=== PATIENT | male | born 1935 | race Caucasian/White ===

== ENCOUNTER → 2016-12-07 | Outpatient (CLI) | payer OTHER, MEDICARE ==
[2016-11-23 14:21] VITALS: BP 111/76
--- NOTE | 2016-12-07 14:46 | CT ---
HISTORY: Fall, hit back of head Study: CT brain without contrast Comparison: 06/12/2015 Technique: Multiple axial images of the brain were obtained from the skull base to the vertex without administr ation of IV contrast. Dose reduction techniques including Automated Exposure Control (AEC) and adju stment of mA and kV were utilized. Findings: There is chronic generalized cerebral volume loss. There are prominent subcortical and periventricul ar white matter hypodensities scattered throughout the bilateral hemispheres suggestive of advanced microvascular ischemic changes. No evidence of acute hemorrhage, midline shift, mass effect or abno rmal extra-axial fluid collection. Prominence of the cortical sulci and ventricles commensurate wit h volume loss. The soft tissues and osseous structures are unremarkable. There is right maxillary s inus mucosal thickening and fluid. The remaining paranasal sinuses are essentially clear. IMPRESSION: 1. Chronic advanced microvascular ischemic changes without acute intracranial abnormality. 2. Right maxillary sinus disease. Reported By:
== END | disposition home or self-care (01) ==
LOC: RAD 13:38
PROVIDERS: ATTEND Internal Medicine
DX: Z91.81 History of falling (principal); J34.89 Other specified disorders of nose and nasal sinuses
CPT/HCPCS: 70450

== ENCOUNTER 2016-12-17 21:56 | Inpatient (IN) | payer OTHER, MEDICARE ==
--- NOTE | 2016-12-17 22:57 | DR.GENAD ---
HPI - PCP Primary Care Physician: ADRIANE - Complaint/Symptoms Chief Complaint Doctors Comments: Patient presented from half-way with complaint of altered mental status. His medication for dementia was changed and since then has had AMS. He catheter was changed and urine was positive for UTI. He had been treated with macrobid for uti. He is afebrile. Chief Complaint:: AMS, BAD URINE Self Treatment fo Chief Complaint: STARTED MACROBID TODAY - Source History Provided: [facility] - Mode of Arrival Mode of Arrival: Stretcher - Timing Onset of Chief Complaint: 12/16/16 PMH - PMH Past Medical History: Yes Past Medical History: Anxiety, Coronary Artery Disease, Dementia, Depression, Hypertension Past Medical History Comment: A-FIB,PROSTATE NEOPLASM, FAILURE TO THRIVE, DYSPHAGIA,UTI, ANOREXIA Past Surgical History: Yes Surgical History: Ortho Surgery Past Surgical History Comment: FOOT AND BACK, SPINAL TUMOR REMOVED - Family History History of Family Medical Conditions: Yes Family Medical History: Hypertension - Social History Does patient currently use any type of tobacco product: No Have you used tobacco products in the last 12 months: No Type of Tobacco Use: None Does any household member use tobacco: No Alcohol Use: None Do you use any recreational Drugs:: No Lives With: Other Lives Where: [facility] - infectious screening Have you had fever, night sweats or hemotysis?: No Have you traveled outside the country in the last 6 months?: No Isolation: Standard ROS - Review of Systems Constitutional: No Symptoms Reported. negative: Chills, Diaphoresis Eyes: No Symptoms Reported ENTM: No Symptoms Reported Respiratoy: No Symptoms Reported Cardiovascular: No Symptoms Reported, Chest Pain Gastrointestinal/Abdominal: No Symptoms Reported. negative: Abdominal Pain Genitourinary: Other (uti) Neurological: See HPI, Speech Problem Musculoskeletal: No Symptoms Reported Integumentary: No Symptoms Reported Hematologic/Lymphatic: No Symptoms Reported Endocrine: No Symptoms Reported Psychiatric: No Symptoms Reported Unable to Obtain Due To: Altered mental status PE - Vital Signs Vitals: Temperature 98.9 F Pulse Rate 71 Respiratory Rate 18 Blood Pressure [Right Arm] 133/82 Blood Pressure [Left Arm] 111/76 Blood Pressure 100/75 O2 Sat by Pulse Oximetry 97 - General Limitations: No Limitations General Appearance: Obtunded - Head Head Exam: Normal Inspection, Atraumatic - Eyes Eye exam: Normal Appearance, EOMI - ENT ENT Exam: Mucous Membranes Dry External Ear Exam: Normal External Inspection TM/Canal Exam: Bilateral Normal Nose Exam: Normal Nose Exam Mouth Exam: Other (dry) Throat Exam: Normal Inspection - Neck Neck Exam: Normal Inspection, Full ROM - Chest Chest Inspection: Normal Inspection - Respiratory Respiratory Exam: Normal Lung Sounds Bilat Respiratory Exam: Bilateral Clear to Auscultation - Cardiovascular Cardiovascular Exam: Regular Rate, Normal Rhythm - Abdominal Exam Abdominal Exam: Normal Inspection Abdominal Tenderness: negative: RUQ, RLQ, LUQ, LLQ, Epigastrium, Suprapubic, Diffuse, Mild, Moderate, Severe, Other - Extremities Extremities Exam: Normal Inspection - Back Back Exam: Normal Inspection - Neurologic Neurological Exam: Other (AMS) - Psychiatric Psychiatric Exam: Depressed, Flat Affect - Skin Skin Exam: Warm, Dry, Intact Course - Reevaluation 1st: Unchanged ROR - Labs Reviewed Laboratory Results Reviewed?: Yes (Labs done at 1800: UrineTNTC wbc, 3+Leuk,4+ bld) - Diagnosis Discharge Problem: UTI (urinary tract infection) due to urinary indwelling Riojas catheter Qualifiers: Indwelling urinary catheter type: indwelling urethral catheter Encounter type: initial encounter Qualified Code(s): T83.511A - Infection and inflammatory reaction due to indwelling urethral catheter, initial encounter; N39.0 - Urinary tract infection, site not specified - Discharge Plan Condition: Stable - Follow ups/Referrals Follow ups/Referrals: Shayne Reyes [Primary Care Provider] - 3 days - Instructions
[2016-12-17] MEDS ORDERED: GENTAMICIN INJ 80 MG in NS 100 ML IV 100 ML IV ONE (23:20)
[2016-12-17] MEDS ORDERED: TYLENOL 500 MG TAB EXTRA STRENGTH PO PRN (23:20)
[2016-12-17] MEDS: LR 1000 ML IV 1,000 ML IV SCH (23:51)
[2016-12-18 01:57] VITALS: BMI 18.6
[2016-12-18] MEDS ORDERED: NS 50 ML IV 50 ML IV ONE (02:59)
[2016-12-18] MEDS ORDERED: AMPICILLIN VIAL 1 GM ONE (03:00)
[2016-12-18] MEDS: AMPICILLIN VIAL 1 GM 1 GM in NS 50 ML IV + SPIKE MINIBAG* 50 ML IV SCH ×2 (03:04→09:16)
[2016-12-18 06:36] LABS: ALANINE AMINOTRANSFERASE 27 Units/L (12-78); ALBUMIN 2.3 g/dL (3.4-5.0); ALKALINE PHOSPHATASE 78 Units/L (46-116); ASPARTATE AMINO TRANSFERASE 28 Units/L (15-37); BASOPHILS # (AUTO) 0.1 X10^3/uL (0.0-0.1); BASOPHILS % (AUTO) 0.4 % (0.2-1.0); BLOOD UREA NITROGEN 18 mg/dL (7-18); CALCIUM 8.5 mg/dL (8.5-10.1); CARBON DIOXIDE 22.5 mmol/L (21-32); CHLORIDE 107 mmol/L (98-107); COR CA(FOR HYPOALB) 9.9 mg/dL (8.5-10.1); EOSINOPHILS # (AUTO) 0.4 x10^3/uL (0.0-0.2); EOSINOPHILS % (AUTO) 3.1 % (0.9-2.9); GLUCOSE 97 mg/dL (65-99); HEMATOCRIT 33.2 % (42.0-54.0); HEMOGLOBIN 10.9 g/dL (13.5-18.0); LYMPHOCYTES # (AUTO) 2.3 X10^3/uL (1.3-2.9); LYMPHOCYTES % (AUTO) 15.7 % (21.0-51.0); MEAN CORPUSCULAR HEMOGLOBIN 28.9 pg (27.0-34.0); MEAN CORPUSCULAR VOLUME 87.6 fL (80.0-100.0); MEAN PLATELET VOLUME 9.3 fL (7.4-11.0); MONOCYTES # (AUTO) 0.9 x10^3/uL (0.3-0.8); MONOCYTES % (AUTO) 6.1 % (0.0-13.0); NEUTROPHILS # (AUTO) 10.9 x10^3/uL (2.2-4.8); NEUTROPHILS % (AUTO) 74.7 % (42.0-75.0); PLATELET COUNT 201 X10^3/uL (150.0-450.0); RED BLOOD COUNT 3.79 X10^6/uL (4.7-6.0); RED CELL DISTRIBUTION WIDTH 13.3 % (11.6-16.5); SODIUM 140 mmol/L (136-145); TOTAL PROTEIN 6.9 g/dL (6.4-8.2); WHITE BLOOD COUNT 14.6 X10^3/uL (3.6-10.0); eGFR BLACK RACES > 60 (>60); eGFR NON BLACK RACES > 60 (>60)
[2016-12-18] MEDS: LR 1000 ML IV 1,000 ML IV SCH ×4 (09:16→23:52)
[2016-12-18] MEDS ORDERED: PHARMACY CONSULT - DOSE _____ XX SCH (10:00)
[2016-12-18] MEDS: ROCEPHIN VIAL 1 GM 1 GM in NS 50 ML IV + SPIKE MINIBAG* 50 ML IV SCH (10:02)
[2016-12-18] MEDS: ZOSYN VIAL 3.375 GM 3.375 GM in NS 100 ML IV + SPIKE MINIBAG* 100 ML IV SCH ×2 (13:59→22:32)
--- NOTE | 2016-12-18 18:29 | CT ---
HISTORY: Patient found sitting in floor unable to verbalize Study: CT brain without contrast Comparison: December 09, 2016 Technique: Multiple axial images of the brain were obtained from the skull base to the vertex without administr ation of IV contrast. Findings: No acute intraparenchymal hemorrhage or mass can be identified. No extra-axial fluid collections ar e seen. No alteration in the attenuation of the brain parenchyma can be identified to suggest acute or subacute ischemic change. The ventricles, sulci, and cisterns demonstrate an appearance consist ent with a moderate degree of generalized atrophy. Patchy and confluent areas of decreased attenuati on are again seen within the periventricular, subcortical, and subinsular white matter in keeping wi th changes of chronic small vessel ischemic disease. There is a questionable remote infarct again no adrianna within the right occipital lobe. Images demonstrate moderate mucosal thickening with an associat ed air-fluid level involving the right maxillary sinus. Similar findings were noted on prior study. IMPRESSION: 1. No acute intracranial process can be identified. 2. Moderate generalized atrophy with findings consistent with changes small vessel ischemic disease. 3. Right maxillary sinus disease. Reported By:
--- NOTE | 2016-12-18 18:33 | RAD ---
HISTORY: Patient found sitting in for unable to verbalize Study: Bilateral hips Technique: Three views of the hips and pelvis Comparison: None Findings: Portions of the pelvis included pubic symphysis cysts are obscured by overlying bowel content. Other mark no definite evidence of acute displaced fracture or dislocation identified. Each femoral head appears to be well seated within its respective acetabulum. Degenerative changes of the sacroil iac joints, lumbar spine, both hips, and pubic symphysis are noted. If symptoms or clinical concern persist correlation with CT may be helpful. Impression: 1. Degenerative changes as noted above. Reported By:
[2016-12-18] MEDS: MEGACE PO SCH (21:00)
[2016-12-18] MEDS: MACROBID CAP 100 MG EXT REL PO SCH (21:01)
[2016-12-18] MEDS: KLONOPIN TAB 0.5 MG PO SCH (21:01)
[2016-12-18] MEDS: FLOMAX PO SCH (21:01)
[2016-12-18] MEDS: ZYPREXA 5 MG PO SCH (21:01)
[2016-12-18] MEDS: DESYREL PO SCH (21:01)
[2016-12-18] MEDS: PROZAC PO SCH (21:05)
[2016-12-19] MEDS: LR 1000 ML IV 1,000 ML IV SCH ×3 (01:50→14:54)
[2016-12-19 02:02] LABS: BILIRUBIN,URINE NEGATIVE (NEGATIVE); BLOOD/HEMOGLOBIN,URINE 5+ (NEGATIVE); GLUCOSE, URINE NEGATIVE (NEGATIVE); KETONES,URINE NEGATIVE (NEGATIVE); LEUKOCYTE ESTERASE ,URINE 2+ (NEGATIVE); NITRITES,URINE NEGATIVE (NEGATIVE); PROTEIN,URINE 1+ (NEGATIVE); UROBILINOGEN,URINE NORMAL (NORMAL)
[2016-12-19 02:13] LABS: APPEARANCE,URINE HAZY (CLEAR); BACTERIA,URINE TRACE /HPF (NEGATIVE); COLOR,URINE YELLOW (YELLOW); RBC,URINE 40-50 /HPF (NEGATIVE); SQUAMOUS EPITHELIAL CELL,UR RARE /HPF (NEGATIVE)
[2016-12-19] MEDS: ZOSYN VIAL 3.375 GM 3.375 GM in NS 100 ML IV + SPIKE MINIBAG* 100 ML IV SCH ×3 (05:35→21:38)
[2016-12-19] MEDS: PROZAC PO SCH (08:00)
[2016-12-19] MEDS: ROCEPHIN VIAL 1 GM 1 GM in NS 50 ML IV + SPIKE MINIBAG* 50 ML IV SCH (08:57)
[2016-12-19] MEDS: ZYPREXA 5 MG PO SCH ×2 (08:59→21:39)
[2016-12-19] MEDS: KLONOPIN TAB 0.5 MG PO SCH (08:59)
[2016-12-19] MEDS: MACROBID CAP 100 MG EXT REL PO SCH ×2 (08:59→21:39)
[2016-12-19] MEDS: ASPIRIN EC 81 MG PO SCH (08:59)
[2016-12-19] MEDS: MEGACE PO SCH ×2 (09:01→21:39)
[2016-12-19 10:24] LABS: BASOPHILS # (AUTO) 0.1 X10^3/uL (0.0-0.1); EOSINOPHILS # (AUTO) 0.5 x10^3/uL (0.0-0.2); EOSINOPHILS % (AUTO) 4.9 % (0.9-2.9); HEMATOCRIT 32.3 % (42.0-54.0); HEMOGLOBIN 10.8 g/dL (13.5-18.0); LYMPHOCYTES # (AUTO) 1.8 X10^3/uL (1.3-2.9); LYMPHOCYTES % (AUTO) 17.4 % (21.0-51.0); MEAN CORPUSCULAR HGB CONC 33.4 g/dL (33.0-35.0); MEAN CORPUSCULAR VOLUME 86.8 fL (80.0-100.0); MEAN PLATELET VOLUME 8.1 fL (7.4-11.0); MONOCYTES # (AUTO) 0.9 x10^3/uL (0.3-0.8); MONOCYTES % (AUTO) 8.8 % (0.0-13.0); NEUTROPHILS # (AUTO) 7.1 x10^3/uL (2.2-4.8); NEUTROPHILS % (AUTO) 67.9 % (42.0-75.0); PLATELET COUNT 223 X10^3/uL (150.0-450.0); RED BLOOD COUNT 3.73 X10^6/uL (4.7-6.0); RED CELL DISTRIBUTION WIDTH 13.5 % (11.6-16.5); WHITE BLOOD COUNT 10.4 X10^3/uL (3.6-10.0)
[2016-12-19 10:47] LABS: ALANINE AMINOTRANSFERASE 28 Units/L (12-78); ALBUMIN 2.3 g/dL (3.4-5.0); ALKALINE PHOSPHATASE 74 Units/L (46-116); ASPARTATE AMINO TRANSFERASE 22 Units/L (15-37); BLOOD UREA NITROGEN 10 mg/dL (7-18); CALCIUM 8.6 mg/dL (8.5-10.1); CHLORIDE 109 mmol/L (98-107); CREATININE 0.97 mg/dL (0.70-1.30); GLUCOSE 107 mg/dL (65-99); SODIUM 141 mmol/L (136-145); TOTAL PROTEIN 6.9 g/dL (6.4-8.2); eGFR BLACK RACES > 60 (>60); eGFR NON BLACK RACES > 60 (>60)
[2016-12-19] MEDS: ALBUMIN HUMAN 25%- 100ML 100 ML IV SCH (14:51)
[2016-12-19] MEDS: FLOMAX PO SCH (21:38)
[2016-12-19] MEDS: DESYREL PO SCH (21:39)
[2016-12-19] MEDS: MILK OF MAGNESIA PO PRN (21:42)
[2016-12-20] MEDS: LR 1000 ML IV 1,000 ML IV SCH ×5 (00:17→22:58)
[2016-12-20 05:06] LABS: BASOPHILS # (AUTO) 0.1 X10^3/uL (0.0-0.1); BASOPHILS % (AUTO) 0.7 % (0.2-1.0); EOSINOPHILS # (AUTO) 0.4 x10^3/uL (0.0-0.2); EOSINOPHILS % (AUTO) 3.5 % (0.9-2.9); HEMATOCRIT 32.6 % (42.0-54.0); HEMOGLOBIN 10.8 g/dL (13.5-18.0); LYMPHOCYTES # (AUTO) 1.9 X10^3/uL (1.3-2.9); LYMPHOCYTES % (AUTO) 15.9 % (21.0-51.0); MEAN CORPUSCULAR HEMOGLOBIN 28.7 pg (27.0-34.0); MEAN CORPUSCULAR VOLUME 87.1 fL (80.0-100.0); MEAN PLATELET VOLUME 8.7 fL (7.4-11.0); MONOCYTES # (AUTO) 0.9 x10^3/uL (0.3-0.8); MONOCYTES % (AUTO) 7.6 % (0.0-13.0); NEUTROPHILS # (AUTO) 8.4 x10^3/uL (2.2-4.8); NEUTROPHILS % (AUTO) 72.3 % (42.0-75.0); PLATELET COUNT 215 X10^3/uL (150.0-450.0); RED BLOOD COUNT 3.74 X10^6/uL (4.7-6.0); RED CELL DISTRIBUTION WIDTH 13.3 % (11.6-16.5); WHITE BLOOD COUNT 11.7 X10^3/uL (3.6-10.0)
[2016-12-20 05:16] LABS: ALANINE AMINOTRANSFERASE 25 Units/L (12-78); ALBUMIN 2.8 g/dL (3.4-5.0); ALKALINE PHOSPHATASE 71 Units/L (46-116); ASPARTATE AMINO TRANSFERASE 21 Units/L (15-37); BLOOD UREA NITROGEN 9 mg/dL (7-18); CALCIUM 8.7 mg/dL (8.5-10.1); CARBON DIOXIDE 24.2 mmol/L (21-32); CHLORIDE 106 mmol/L (98-107); COR CA(FOR HYPOALB) 9.7 mg/dL (8.5-10.1); CREATININE 0.78 mg/dL (0.70-1.30); GLUCOSE 89 mg/dL (65-99); SODIUM 140 mmol/L (136-145); TOTAL PROTEIN 7.2 g/dL (6.4-8.2); eGFR BLACK RACES > 60 (>60); eGFR NON BLACK RACES > 60 (>60)
[2016-12-20] MEDS: ZOSYN VIAL 3.375 GM 3.375 GM in NS 100 ML IV + SPIKE MINIBAG* 100 ML IV SCH ×3 (05:52→22:00)
--- NOTE | 2016-12-20 08:28 | RAD ---
HISTORY: Cough, UTI Study: Chest one view Comparison: December 09, 2016 Findings: The patient is rotated to the left. The heart is within normal limits in size. The mone are normal. The lungs are free of acute alveolar infiltrates. No pleural effusions are identified. The bony thor ax is unremarkable. IMPRESSION: Lungs clear Reported By:
[2016-12-20] MEDS: ALBUMIN HUMAN 25%- 100ML 100 ML IV SCH (09:21)
[2016-12-20] MEDS: ROCEPHIN VIAL 1 GM 1 GM in NS 50 ML IV + SPIKE MINIBAG* 50 ML IV SCH (09:22)
[2016-12-20] MEDS: KLONOPIN TAB 0.5 MG PO SCH (09:23)
[2016-12-20] MEDS: ZYPREXA 5 MG PO SCH ×2 (09:27→20:40)
[2016-12-20] MEDS: MEGACE PO SCH ×2 (09:27→20:40)
[2016-12-20] MEDS: PROZAC PO SCH (09:27)
[2016-12-20] MEDS: MACROBID CAP 100 MG EXT REL PO SCH (09:28)
[2016-12-20] MEDS: ASPIRIN EC 81 MG PO SCH (09:28)
[2016-12-20] MEDS: GENTAMICIN TOPICAL CRM TOP SCH ×2 (14:06→22:00)
[2016-12-20] MEDS: VIBRAMYCIN 100 MG in D5W 250 ML IV 250 ML IV SCH ×2 (15:00→22:00)
--- NOTE | 2016-12-20 16:29 | PCM.PROG ---
Progress Note - Progress Note for Day of Date: 12/18/16 - Subjective Subjective: PATIENT IS ADMITTED FOR UTI WITH POSSIBLE UROSEPSIS. WHITE BLOOD CELL COUNT IS ELEVATED THIS MORNING AT 14.6. PATIENT IS NOTED WITH SOME CONFUSION THIS MORNING. URINE IS CONCENTRATED, CLOUDY. CBC WNL EXCEPT: WBC 14.6, H/H 10.9/33.2. CMP WNL EXCEPT: ALBUMIN 2.3. PATIENT HAS A WOUND ON HIS PENIS THAT WE WILL CULTURE TODAY FOR FURTHER TREATMENT. WE WILL OBTAIN BLOOD CULTURES. WE WILL CONTINUE ROCEPHIN AND ZOSYN, ALONG WITH IV FLUIDS. - Past Medical Family Social History Past Med/Fam/Surg Hx: No changes since H&P Allergies: Allergies Iodine Allergy (Intermediate, Verified 11/18/16 13:41) - Review of Systems ROS: No change since H&P - Vital Signs and I&O's Vital Signs: Temperature 98.1 F Pulse Rate [Right Posterior 93 Tibial] Pulse Rate [Right Radial] 128 Respiratory Rate 16 Blood Pressure [Left Calf] 142/82 Blood Pressure [Right Calf] 167/86 O2 Sat by Pulse Oximetry 97 Intake and Output: Intake & Output 12/18/16 12/19/16 12/20/16 12/21/16 11:59 11:59 11:59 11:59 Intake Total 3932 1300 Output Total 6475 2900 Balance -2543 -1600 - Physical Exam Oriented: Not Oriented Eyes: Normal. negative: Blurred Vision, Diplopia, Discharge, Pain, Redness, Photophobia Ear: Normal. negative: Swelling, Ecchymosis, Hemotypanum, Abrasion, Laceration Nose: Normal. negative: Injected, Discharge, Blood Throat: Dry. negative: Tonsillar Hypertrophy, Red, Exudate Respiratory: Normal Cardiovascular: Normal. negative: Murmur, Edema : Dysuria, Hematuria, Frequency, Discharge, Other (Riojas Cath). negative: Testicular Pain Auscultation: Bowel Sounds: Decreased. negative: Bruit Palpation: Normal. negative: Spleen Enlarged, Liver Enlarged, Mass Pulsatile Tenderness: Normal. negative: Rebound, Guarding, Rigidity Skin: Normal. negative: Diaphoresis, Wound, Bruising, Ecchymosis Musculoskeletal: Instability Psychiatric: Other (Confusion) Mood Description: Calm Speech Pattern: Clear, Inappropriate - Laboratory and Diagnostics Result Diagrams: 12/20/16 03:55 12/20/16 03:55 Labs: Laboratory WBC 11.7 X10^3/uL (3.6-10.0) H 12/20/16 03:55 RBC 3.74 X10^6/uL (4.7-6.0) L 12/20/16 03:55 Hgb 10.8 g/dL (13.5-18.0) L 12/20/16 03:55 Hct 32.6 % (42.0-54.0) L 12/20/16 03:55 MCV 87.1 fL (80.0-100.0) 12/20/16 03:55 MCH 28.7 pg (27.0-34.0) 12/20/16 03:55 MCHC 33.0 g/dL (33.0-35.0) 12/20/16 03:55 RDW 13.3 % (11.6-16.5) 12/20/16 03:55 Plt Count 215 X10^3/uL (150.0-450.0) 12/20/16 03:55 MPV 8.7 fL (7.4-11.0) 12/20/16 03:55 Neut % 72.3 % (42.0-75.0) 12/20/16 03:55 Lymph % 15.9 % (21.0-51.0) L 12/20/16 03:55 [place] % 7.6 % (0.0-13.0) 12/20/16 03:55 Eos % 3.5 % (0.9-2.9) H 12/20/16 03:55 Baso % 0.7 % (0.2-1.0) 12/20/16 03:55 Neut # 8.4 x10^3/uL (2.2-4.8) H 12/20/16 03:55 Lymph # 1.9 X10^3/uL (1.3-2.9) 12/20/16 03:55 [place] # 0.9 x10^3/uL (0.3-0.8) H 12/20/16 03:55 Eos # 0.4 x10^3/uL (0.0-0.2) H 12/20/16 03:55 Baso # 0.1 X10^3/uL (0.0-0.1) 12/20/16 03:55 Absolute Nucleated RBC 0.0 /100WBC 12/20/16 03:55 Sodium 140 mmol/L (136-145) 12/20/16 03:55 Corrected Sodium TNP 12/20/16 03:55 Potassium 4.1 mmol/L (3.5-5.1) 12/20/16 03:55 Chloride 106 mmol/L (98-107) 12/20/16 03:55 Carbon Dioxide 24.2 mmol/L (21-32) 12/20/16 03:55 BUN 9 mg/dL (7-18) 12/20/16 03:55 Creatinine 0.78 mg/dL (0.70-1.30) 12/20/16 03:55 Est GFR (MDRD) Af Amer > 60 (>60) 12/20/16 03:55 Est GFR (MDRD) Non-Af > 60 (>60) 12/20/16 03:55 Glucose 89 mg/dL (65-99) 12/20/16 03:55 Lactic Acid 1.0 mmol/L (0.4-2.0) 12/17/16 23:20 Calcium 8.7 mg/dL (8.5-10.1) 12/20/16 03:55 Corrected Calcium 9.7 mg/dL (8.5-10.1) 12/20/16 03:55 Total Bilirubin 0.80 mg/dL (0.2-1.0) 12/20/16 03:55 AST 21 Units/L (15-37) 12/20/16 03:55 ALT 25 Units/L (12-78) 12/20/16 03:55 Alkaline Phosphatase 71 Units/L (46-116) 12/20/16 03:55 Total Protein 7.2 g/dL (6.4-8.2) 12/20/16 03:55 Albumin 2.8 g/dL (3.4-5.0) L 12/20/16 03:55 Globulin 4.4 g/dL (2.5-4.5) 12/20/16 03:55 Albumin/Globulin Ratio 0.6 Ratio (1.1-2.1) L 12/20/16 03:55 Specimen Type Catherized urine 12/19/16 01:00 Urine Color Yellow (YELLOW) 12/19/16 01:00 Urine Appearance Hazy (CLEAR) 12/19/16 01:00 Urine pH 8.0 (5.0 - 8.0) 12/19/16 01:00 Ur Specific [place] 1.010 (1.000-1.030) 12/19/16 01:00 Urine Protein 1+ (NEGATIVE) 12/19/16 01:00 Urine Glucose (UA) Negative (NEGATIVE) 12/19/16 01:00 Urine Ketones Negative (NEGATIVE) 12/19/16 01:00 Urine Occult Blood 5+ (NEGATIVE) 12/19/16 01:00 Urine Nitrite Negative (NEGATIVE) 12/19/16 01:00 Urine Bilirubin Negative (NEGATIVE) 12/19/16 01:00 Urine Urobilinogen Normal (NORMAL) 12/19/16 01:00 Ur Leukocyte Esterase 2+ (NEGATIVE) 12/19/16 01:00 Urine RBC 40-50 /HPF (NEGATIVE) 12/19/16 01:00 Urine WBC 8-12 /HPF (NEGATIVE) 12/19/16 01:00 Ur Squamous Epith Cells Rare /HPF (NEGATIVE) 12/19/16 01:00 Urine Bacteria Trace /HPF (NEGATIVE) 12/19/16 01:00 Ur Culture Indicated? Yes/culture set up 12/19/16 01:00 - Plan (1) Sepsis Status: Suspected Qualifiers: Sepsis type: sepsis due to unspecified organism Qualified Code(s): A41.9 - Sepsis, unspecified organism Plan: AWAIT BLOOD CULTURE C&S, MONITOR VITAL SIGNS. (2) UTI (urinary tract infection) due to urinary indwelling Riojas catheter Status: Acute Qualifiers: Indwelling urinary catheter type: indwelling urethral catheter Encounter type: initial encounter Qualified Code(s): T83.511A - Infection and inflammatory reaction due to indwelling urethral catheter, initial encounter; N39.0 - Urinary tract infection, site not specified Plan: CONTINUE ZOSYN, ROCEPHIN, MONITOR. (3) Altered mental status Status: Acute Qualifiers: Altered mental status type: disorientation Coma depth: C Coma timing: C Qualified Code(s): R41.0 - Disorientation, unspecified Plan: CONTINUE IV FLUIDS, MONITOR. (4) CAD (coronary artery disease) Status: Chronic Qualifiers: Coronary Disease-Associated Artery/Lesion type: [place] artery [place] vs. transplanted heart: [place] heart Associated angina: without angina Qualified Code(s): I25.10 - Atherosclerotic heart disease of [place] coronary artery without angina pectoris (5) Dementia Status: Chronic Qualifiers: Dementia type: vascular dementia Alzheimer's disease onset: A Dementia behavioral disturbance: with behavioral disturbance Qualified Code(s): F01.51 - Vascular dementia with behavioral disturbance (6) History of - atrial fibrillation Status: Chronic (7) Hx of malignant neoplasm of prostate Status: Chronic
--- NOTE | 2016-12-20 16:40 | PCM.PROG ---
Progress Note - Progress Note for Day of Date: 12/20/16 - Subjective Subjective: PATIENT IS SLEEPING UPON ROUNDS. WHITE BLOOD CELL COUNT IS IMPROVING AND IS 11.7 THIS MORNING. PATIENT CONTINUES WITH CONFUSION. URINE IS CLEARING UP. CBC WNL EXCEPT: WBC 11.7, H/H 10.8/32.6. CMP WNL EXCEPT: ALBUMIN 2.8. BLOOD AND URINE CULTURES PENDING. WOUND CULTURE REPORTS E-COLI, PROVIDENCIA RETTGERI, MRSA. WE WILL START GENTAMICIN CREAM AND VIBRAMYCIN, WHICH ORGANISMS ARE SENSITIVE TO. WE WILL CONTINUE WOUND CARE TO PENIS. WE WILL CONTINUE ROCEPHIN AND ZOSYN, ALONG WITH IV FLUIDS. - Past Medical Family Social History Past Med/Fam/Surg Hx: No changes since H&P Allergies: Allergies Iodine Allergy (Intermediate, Verified 11/18/16 13:41) - Review of Systems ROS: No change since H&P - Vital Signs and I&O's Vital Signs: Temperature 98.1 F Pulse Rate [Right Posterior 93 Tibial] Pulse Rate [Right Radial] 128 Respiratory Rate 16 Blood Pressure [Left Calf] 142/82 Blood Pressure [Right Calf] 167/86 O2 Sat by Pulse Oximetry 97 Intake and Output: Intake & Output 12/18/16 12/19/16 12/20/16 12/21/16 11:59 11:59 11:59 11:59 Intake Total 3932 1300 Output Total 6475 2900 Balance -2543 -1600 - Physical Exam Oriented: Not Oriented Eyes: Normal. negative: Blurred Vision, Diplopia, Discharge, Pain, Redness, Photophobia Ear: Normal. negative: Swelling, Ecchymosis, Hemotypanum, Abrasion, Laceration Nose: Normal. negative: Injected, Discharge, Blood Throat: Dry. negative: Tonsillar Hypertrophy, Red, Exudate Respiratory: Normal Cardiovascular: Normal. negative: Murmur, Edema : Dysuria, Hematuria, Frequency, Discharge, Other (Riojas Cath). negative: Testicular Pain Auscultation: Bowel Sounds: Decreased. negative: Bruit Palpation: Normal. negative: Spleen Enlarged, Liver Enlarged, Mass Pulsatile Tenderness: Normal. negative: Rebound, Guarding, Rigidity Skin: Normal. negative: Diaphoresis, Wound, Bruising, Ecchymosis Musculoskeletal: Instability Psychiatric: Other (Confusion) Mood Description: Calm Speech Pattern: Clear, Inappropriate - Laboratory and Diagnostics Result Diagrams: 12/21/16 04:15 12/21/16 04:15 Labs: Laboratory WBC 11.7 X10^3/uL (3.6-10.0) H 12/20/16 03:55 RBC 3.74 X10^6/uL (4.7-6.0) L 12/20/16 03:55 Hgb 10.8 g/dL (13.5-18.0) L 12/20/16 03:55 Hct 32.6 % (42.0-54.0) L 12/20/16 03:55 MCV 87.1 fL (80.0-100.0) 12/20/16 03:55 MCH 28.7 pg (27.0-34.0) 12/20/16 03:55 MCHC 33.0 g/dL (33.0-35.0) 12/20/16 03:55 RDW 13.3 % (11.6-16.5) 12/20/16 03:55 Plt Count 215 X10^3/uL (150.0-450.0) 12/20/16 03:55 MPV 8.7 fL (7.4-11.0) 12/20/16 03:55 Neut % 72.3 % (42.0-75.0) 12/20/16 03:55 Lymph % 15.9 % (21.0-51.0) L 12/20/16 03:55 [place] % 7.6 % (0.0-13.0) 12/20/16 03:55 Eos % 3.5 % (0.9-2.9) H 12/20/16 03:55 Baso % 0.7 % (0.2-1.0) 12/20/16 03:55 Neut # 8.4 x10^3/uL (2.2-4.8) H 12/20/16 03:55 Lymph # 1.9 X10^3/uL (1.3-2.9) 12/20/16 03:55 [place] # 0.9 x10^3/uL (0.3-0.8) H 12/20/16 03:55 Eos # 0.4 x10^3/uL (0.0-0.2) H 12/20/16 03:55 Baso # 0.1 X10^3/uL (0.0-0.1) 12/20/16 03:55 Absolute Nucleated RBC 0.0 /100WBC 12/20/16 03:55 Sodium 140 mmol/L (136-145) 12/20/16 03:55 Corrected Sodium TNP 12/20/16 03:55 Potassium 4.1 mmol/L (3.5-5.1) 12/20/16 03:55 Chloride 106 mmol/L (98-107) 12/20/16 03:55 Carbon Dioxide 24.2 mmol/L (21-32) 12/20/16 03:55 BUN 9 mg/dL (7-18) 12/20/16 03:55 Creatinine 0.78 mg/dL (0.70-1.30) 12/20/16 03:55 Est GFR (MDRD) Af Amer > 60 (>60) 12/20/16 03:55 Est GFR (MDRD) Non-Af > 60 (>60) 12/20/16 03:55 Glucose 89 mg/dL (65-99) 12/20/16 03:55 Lactic Acid 1.0 mmol/L (0.4-2.0) 12/17/16 23:20 Calcium 8.7 mg/dL (8.5-10.1) 12/20/16 03:55 Corrected Calcium 9.7 mg/dL (8.5-10.1) 12/20/16 03:55 Total Bilirubin 0.80 mg/dL (0.2-1.0) 12/20/16 03:55 AST 21 Units/L (15-37) 12/20/16 03:55 ALT 25 Units/L (12-78) 12/20/16 03:55 Alkaline Phosphatase 71 Units/L (46-116) 12/20/16 03:55 Total Protein 7.2 g/dL (6.4-8.2) 12/20/16 03:55 Albumin 2.8 g/dL (3.4-5.0) L 12/20/16 03:55 Globulin 4.4 g/dL (2.5-4.5) 12/20/16 03:55 Albumin/Globulin Ratio 0.6 Ratio (1.1-2.1) L 12/20/16 03:55 Specimen Type Catherized urine 12/19/16 01:00 Urine Color Yellow (YELLOW) 12/19/16 01:00 Urine Appearance Hazy (CLEAR) 12/19/16 01:00 Urine pH 8.0 (5.0 - 8.0) 12/19/16 01:00 Ur Specific [place] 1.010 (1.000-1.030) 12/19/16 01:00 Urine Protein 1+ (NEGATIVE) 12/19/16 01:00 Urine Glucose (UA) Negative (NEGATIVE) 12/19/16 01:00 Urine Ketones Negative (NEGATIVE) 12/19/16 01:00 Urine Occult Blood 5+ (NEGATIVE) 12/19/16 01:00 Urine Nitrite Negative (NEGATIVE) 12/19/16 01:00 Urine Bilirubin Negative (NEGATIVE) 12/19/16 01:00 Urine Urobilinogen Normal (NORMAL) 12/19/16 01:00 Ur Leukocyte Esterase 2+ (NEGATIVE) 12/19/16 01:00 Urine RBC 40-50 /HPF (NEGATIVE) 12/19/16 01:00 Urine WBC 8-12 /HPF (NEGATIVE) 12/19/16 01:00 Ur Squamous Epith Cells Rare /HPF (NEGATIVE) 12/19/16 01:00 Urine Bacteria Trace /HPF (NEGATIVE) 12/19/16 01:00 Ur Culture Indicated? Yes/culture set up 12/19/16 01:00 - Plan (1) Sepsis Status: Suspected Qualifiers: Sepsis type: sepsis due to unspecified organism Qualified Code(s): A41.9 - Sepsis, unspecified organism Plan: AWAIT BLOOD CULTURE C&S, MONITOR VITAL SIGNS. (2) MRSA infection Status: Acute Plan: START GENTAMICIN CREAM, DOXYCYCLINE IV, MONITOR. (3) E coli infection Status: Acute Plan: ABOVE. (4) UTI (urinary tract infection) due to urinary indwelling Rio[place] catheter Status: Acute Qualifiers: Indwelling urinary catheter type: indwelling urethral catheter Encounter type: initial encounter Qualified Code(s): T83.511A - Infection and inflammatory reaction due to indwelling urethral catheter, initial encounter; N39.0 - Urinary tract infection, site not specified Plan: CONTINUE ZOSYN, ROCEPHIN, MONITOR. (5) Altered mental status Status: Acute Qualifiers: Altered mental status type: disorientation Coma depth: C Coma timing: C Qualified Code(s): R41.0 - Disorientation, unspecified Plan: CONTINUE IV FLUIDS, MONITOR. (6) CAD (coronary artery disease) Status: Chronic Qualifiers: Coronary Disease-Associated Artery/Lesion type: [place] artery [place] vs. transplanted heart: [place] heart Associated angina: without angina Qualified Code(s): I25.10 - Atherosclerotic heart disease of [place] coronary artery without angina pectoris (7) Dementia Status: Chronic Qualifiers: Dementia type: vascular dementia Alzheimer's disease onset: A Dementia behavioral disturbance: with behavioral disturbance Qualified Code(s): F01.51 - Vascular dementia with behavioral disturbance (8) History of - atrial fibrillation Status: Chronic (9) Hx of malignant neoplasm of prostate Status: Chronic
[2016-12-20] MEDS: FLOMAX PO SCH (20:40)
[2016-12-20] MEDS: DESYREL PO SCH (20:40)
[2016-12-21] MEDS ORDERED: LOPRESSOR INJ 5 MG AMP IVP STA ×2 (00:37→01:14)
[2016-12-21] MEDS ORDERED: LOVENOX INJ 60 MG SYR SC SCH (01:00)
[2016-12-21] MEDS: LR 1000 ML IV 1,000 ML IV SCH ×3 (02:10→19:40)
[2016-12-21] MEDS: GENTAMICIN TOPICAL CRM TOP SCH ×3 (05:07→22:19)
[2016-12-21 05:15] LABS: BASOPHILS # (AUTO) 0.1 X10^3/uL (0.0-0.1); BASOPHILS % (AUTO) 1.2 % (0.2-1.0); EOSINOPHILS # (AUTO) 0.6 x10^3/uL (0.0-0.2); HEMATOCRIT 32.2 % (42.0-54.0); HEMOGLOBIN 10.7 g/dL (13.5-18.0); LYMPHOCYTES # (AUTO) 1.9 X10^3/uL (1.3-2.9); LYMPHOCYTES % (AUTO) 18.6 % (21.0-51.0); MEAN CORPUSCULAR HEMOGLOBIN 28.9 pg (27.0-34.0); MEAN CORPUSCULAR HGB CONC 33.4 g/dL (33.0-35.0); MEAN CORPUSCULAR VOLUME 86.4 fL (80.0-100.0); MEAN PLATELET VOLUME 8.7 fL (7.4-11.0); MONOCYTES # (AUTO) 0.8 x10^3/uL (0.3-0.8); NEUTROPHILS # (AUTO) 6.7 x10^3/uL (2.2-4.8); NEUTROPHILS % (AUTO) 66.2 % (42.0-75.0); PLATELET COUNT 220 X10^3/uL (150.0-450.0); RED BLOOD COUNT 3.72 X10^6/uL (4.7-6.0); RED CELL DISTRIBUTION WIDTH 13.1 % (11.6-16.5); WHITE BLOOD COUNT 10.1 X10^3/uL (3.6-10.0)
[2016-12-21] MEDS: ZOSYN VIAL 3.375 GM 3.375 GM in NS 100 ML IV + SPIKE MINIBAG* 100 ML IV SCH ×3 (05:23→21:44)
[2016-12-21 05:27] LABS: ALANINE AMINOTRANSFERASE 24 Units/L (12-78); ALBUMIN 2.9 g/dL (3.4-5.0); ALKALINE PHOSPHATASE 62 Units/L (46-116); ASPARTATE AMINO TRANSFERASE 23 Units/L (15-37); BLOOD UREA NITROGEN 9 mg/dL (7-18); CALCIUM 8.7 mg/dL (8.5-10.1); CARBON DIOXIDE 25.1 mmol/L (21-32); CHLORIDE 107 mmol/L (98-107); COR CA(FOR HYPOALB) 9.6 mg/dL (8.5-10.1); CREATININE 0.83 mg/dL (0.70-1.30); GLUCOSE 84 mg/dL (65-99); SODIUM 142 mmol/L (136-145); TOTAL PROTEIN 7.3 g/dL (6.4-8.2); eGFR BLACK RACES > 60 (>60); eGFR NON BLACK RACES > 60 (>60)
[2016-12-21] MEDS: ZYPREXA 5 MG PO SCH ×2 (09:19→21:44)
[2016-12-21] MEDS: ASPIRIN EC 81 MG PO SCH (09:19)
[2016-12-21] MEDS: PROZAC PO SCH (09:19)
[2016-12-21] MEDS: MEGACE PO SCH ×2 (09:19→21:44)
[2016-12-21] MEDS: KLONOPIN TAB 0.5 MG PO SCH (09:19)
[2016-12-21] MEDS: ROCEPHIN VIAL 1 GM 1 GM in NS 50 ML IV + SPIKE MINIBAG* 50 ML IV SCH (09:19)
[2016-12-21] MEDS: ALBUMIN HUMAN 25%- 100ML 100 ML IV SCH (09:19)
[2016-12-21] MEDS: VIBRAMYCIN 100 MG in D5W 250 ML IV 250 ML IV SCH ×2 (09:19→21:45)
[2016-12-21] MEDS: LANOXIN INJ IVP SCH (12:20)
--- NOTE | 2016-12-21 14:05 | PCM.PROG ---
Progress Note - Progress Note for Day of Date: 12/21/16 - Subjective Subjective: PATIENT IS AWAKE UPON ROUNDS. HE IS NOTED WITH CONFUSION. FINAL WOUND CULTURE FROM PENILE DISCHARGE HAS THREE DIFFERENT ORGANISMS THAT ARE BEING TREATED WITH GENTAMICIN, ZOSYN, ROCEPHIN, AND DOXYCYCLINE. CBC WNL EXCEPT : WBC 10.1, H/H 10.7/32.2. CMP WNL EXCEPT: ALBUMIN 2.9. FINAL URINE CULTURE IS NEGATIVE. PRELIMINARY BLOOD CULTURES ARE NEGATIVE. WE WILL CONTINUE TO MONITOR, CONTINUE GENTAMICIN CREAM, VIBRAMYCIN, ROCEPHIN, AND ZOSYN, ALONG WITH IV FLUIDS. - Past Medical Family Social History Past Med/Fam/Surg Hx: No changes since H&P Allergies: Allergies Iodine Allergy (Intermediate, Verified 11/18/16 13:41) - Review of Systems ROS: No change since H&P - Vital Signs and I&O's Vital Signs: Temperature 98 F Pulse Rate [Right Posterior 140 Tibial] Pulse Rate [Right Radial] 104 Pulse Rate 117 Respiratory Rate 21 Blood Pressure [Left Calf] 142/82 Blood Pressure [Right Calf] 109/72 Blood Pressure [Right Arm] 107/73 Blood Pressure 114/50 O2 Sat by Pulse Oximetry 94 Intake and Output: Intake & Output 12/19/16 12/20/16 12/21/16 12/22/16 11:59 11:59 11:59 11:59 Intake Total 3932 2420 Output Total 6475 5550 Balance -8383 -1510 - Physical Exam Oriented: Not Oriented Eyes: Normal. negative: Blurred Vision, Diplopia, Discharge, Pain, Redness, Photophobia Ear: Normal. negative: Swelling, Ecchymosis, Hemotypanum, Abrasion, Laceration Nose: Normal. negative: Injected, Discharge, Blood Throat: Dry. negative: Tonsillar Hypertrophy, Red, Exudate Respiratory: Normal Cardiovascular: Normal. negative: Murmur, Edema : Dysuria, Hematuria, Frequency, Discharge, Other ([place] Cath). negative: Testicular Pain Auscultation: Bowel Sounds: Decreased. negative: Bruit Palpation: Normal. negative: Spleen Enlarged, Liver Enlarged, Mass Pulsatile Tenderness: Normal. negative: Rebound, Guarding, Rigidity Skin: Normal. negative: Diaphoresis, Wound, Bruising, Ecchymosis Musculoskeletal: Instability Psychiatric: Other (Confusion) Mood Description: Calm Speech Pattern: Clear, Inappropriate - Laboratory and Diagnostics Result Diagrams: 12/21/16 04:15 12/21/16 04:15 Labs: Laboratory WBC 10.1 X10^3/uL (3.6-10.0) H 12/21/16 04:15 RBC 3.72 X10^6/uL (4.7-6.0) L 12/21/16 04:15 Hgb 10.7 g/dL (13.5-18.0) L 12/21/16 04:15 Hct 32.2 % (42.0-54.0) L 12/21/16 04:15 MCV 86.4 fL (80.0-100.0) 12/21/16 04:15 MCH 28.9 pg (27.0-34.0) 12/21/16 04:15 MCHC 33.4 g/dL (33.0-35.0) 12/21/16 04:15 RDW 13.1 % (11.6-16.5) 12/21/16 04:15 Plt Count 220 X10^3/uL (150.0-450.0) 12/21/16 04:15 MPV 8.7 fL (7.4-11.0) 12/21/16 04:15 Neut % 66.2 % (42.0-75.0) 12/21/16 04:15 Lymph % 18.6 % (21.0-51.0) L 12/21/16 04:15 [place] % 8.0 % (0.0-13.0) 12/21/16 04:15 Eos % 6.0 % (0.9-2.9) H 12/21/16 04:15 Baso % 1.2 % (0.2-1.0) H 12/21/16 04:15 Neut # 6.7 x10^3/uL (2.2-4.8) H 12/21/16 04:15 Lymph # 1.9 X10^3/uL (1.3-2.9) 12/21/16 04:15 [place] # 0.8 x10^3/uL (0.3-0.8) 12/21/16 04:15 Eos # 0.6 x10^3/uL (0.0-0.2) H 12/21/16 04:15 Baso # 0.1 X10^3/uL (0.0-0.1) 12/21/16 04:15 Absolute Nucleated RBC 0.0 /100WBC 12/21/16 04:15 Sodium 142 mmol/L (136-145) 12/21/16 04:15 Corrected Sodium TNP 12/21/16 04:15 Potassium 3.9 mmol/L (3.5-5.1) 12/21/16 04:15 Chloride 107 mmol/L (98-107) 12/21/16 04:15 Carbon Dioxide 25.1 mmol/L (21-32) 12/21/16 04:15 BUN 9 mg/dL (7-18) 12/21/16 04:15 Creatinine 0.83 mg/dL (0.70-1.30) 12/21/16 04:15 Est GFR (MDRD) Af Amer > 60 (>60) 12/21/16 04:15 Est GFR (MDRD) Non-Af > 60 (>60) 12/21/16 04:15 Glucose 84 mg/dL (65-99) 12/21/16 04:15 Lactic Acid 1.0 mmol/L (0.4-2.0) 12/17/16 23:20 Calcium 8.7 mg/dL (8.5-10.1) 12/21/16 04:15 Corrected Calcium 9.6 mg/dL (8.5-10.1) 12/21/16 04:15 Total Bilirubin 0.70 mg/dL (0.2-1.0) 12/21/16 04:15 AST 23 Units/L (15-37) 12/21/16 04:15 ALT 24 Units/L (12-78) 12/21/16 04:15 Alkaline Phosphatase 62 Units/L (46-116) 12/21/16 04:15 Total Protein 7.3 g/dL (6.4-8.2) 12/21/16 04:15 Albumin 2.9 g/dL (3.4-5.0) L 12/21/16 04:15 Globulin 4.4 g/dL (2.5-4.5) 12/21/16 04:15 Albumin/Globulin Ratio 0.7 Ratio (1.1-2.1) L 12/21/16 04:15 Specimen Type Catherized urine 12/19/16 01:00 Urine Color Yellow (YELLOW) 12/19/16 01:00 Urine Appearance Hazy (CLEAR) 12/19/16 01:00 Urine pH 8.0 (5.0 - 8.0) 12/19/16 01:00 Ur Specific [place] 1.010 (1.000-1.030) 12/19/16 01:00 Urine Protein 1+ (NEGATIVE) 12/19/16 01:00 Urine Glucose (UA) Negative (NEGATIVE) 12/19/16 01:00 Urine Ketones Negative (NEGATIVE) 12/19/16 01:00 Urine Occult Blood 5+ (NEGATIVE) 12/19/16 01:00 Urine Nitrite Negative (NEGATIVE) 12/19/16 01:00 Urine Bilirubin Negative (NEGATIVE) 12/19/16 01:00 Urine Urobilinogen Normal (NORMAL) 12/19/16 01:00 Ur Leukocyte Esterase 2+ (NEGATIVE) 12/19/16 01:00 Urine RBC 40-50 /HPF (NEGATIVE) 12/19/16 01:00 Urine WBC 8-12 /HPF (NEGATIVE) 12/19/16 01:00 Ur Squamous Epith Cells Rare /HPF (NEGATIVE) 12/19/16 01:00 Urine Bacteria Trace /HPF (NEGATIVE) 12/19/16 01:00 Ur Culture Indicated? Yes/culture set up 12/19/16 01:00 Digoxin < 0.30 ng/mL (0.9-2) L 12/21/16 04:15 - Plan (1) MRSA infection Status: Acute Plan: CONTINUE GENTAMICIN CREAM, DOXYCYCLINE, ZOSYN, ROCEPHIN, MONITOR. (2) E coli infection Status: Acute Plan: ABOVE. (3) Penile discharge Status: Acute Plan: ABOVE. (4) Sepsis Status: Suspected Qualifiers: Sepsis type: sepsis due to unspecified organism Qualified Code(s): A41.9 - Sepsis, unspecified organism Plan: AWAIT BLOOD CULTURE C&S, MONITOR VITAL SIGNS. (5) UTI (urinary tract infection) due to urinary indwelling [place] catheter Status: Acute Qualifiers: Indwelling urinary catheter type: indwelling urethral catheter Encounter type: initial encounter Qualified Code(s): T83.511A - Infection and inflammatory reaction due to indwelling urethral catheter, initial encounter; N39.0 - Urinary tract infection, site not specified Plan: CONTINUE ZOSYN, ROCEPHIN, MONITOR. (6) Altered mental status Status: Acute Qualifiers: Altered mental status type: disorientation Coma depth: C Coma timing: C Qualified Code(s): R41.0 - Disorientation, unspecified Plan: CONTINUE IV FLUIDS, MONITOR. (7) CAD (coronary artery disease) Status: Chronic Qualifiers: Coronary Disease-Associated Artery/Lesion type: [place] artery [place] vs. transplanted heart: [place] heart Associated angina: without angina Qualified Code(s): I25.10 - Atherosclerotic heart disease of [place] coronary artery without angina pectoris (8) Dementia Status: Chronic Qualifiers: Dementia type: vascular dementia Alzheimer's disease onset: A Dementia behavioral disturbance: with behavioral disturbance Qualified Code(s): F01.51 - Vascular dementia with behavioral disturbance (9) History of - atrial fibrillation Status: Chronic (10) Hx of malignant neoplasm of prostate Status: Chronic
[2016-12-21] MEDS ORDERED: COLACE CAP 100 MG PO SCH (17:00)
[2016-12-21] MEDS: DESYREL PO SCH (21:44)
[2016-12-21] MEDS: FLOMAX PO SCH (21:44)
[2016-12-21] MEDS: LOVENOX INJ 60 MG SYR SC SCH (21:45)
[2016-12-22] MEDS: LR 1000 ML IV 1,000 ML IV SCH ×4 (02:02→22:14)
[2016-12-22 05:41] LABS: ALANINE AMINOTRANSFERASE 20 Units/L (12-78); ALBUMIN 3.1 g/dL (3.4-5.0); ALKALINE PHOSPHATASE 62 Units/L (46-116); ASPARTATE AMINO TRANSFERASE 22 Units/L (15-37); BLOOD UREA NITROGEN 10 mg/dL (7-18); CALCIUM 8.9 mg/dL (8.5-10.1); CARBON DIOXIDE 24.8 mmol/L (21-32); CHLORIDE 107 mmol/L (98-107); COR CA(FOR HYPOALB) 9.6 mg/dL (8.5-10.1); CREATININE 0.84 mg/dL (0.70-1.30); GLUCOSE 76 mg/dL (65-99); SODIUM 144 mmol/L (136-145); TOTAL PROTEIN 7.4 g/dL (6.4-8.2); eGFR BLACK RACES > 60 (>60); eGFR NON BLACK RACES > 60 (>60)
[2016-12-22 05:44] LABS: BASOPHILS # (AUTO) 0.1 X10^3/uL (0.0-0.1); BASOPHILS % (AUTO) 1.3 % (0.2-1.0); EOSINOPHILS # (AUTO) 0.6 x10^3/uL (0.0-0.2); HEMATOCRIT 33.8 % (42.0-54.0); HEMOGLOBIN 11.4 g/dL (13.5-18.0); LYMPHOCYTES # (AUTO) 1.7 X10^3/uL (1.3-2.9); LYMPHOCYTES % (AUTO) 19.1 % (21.0-51.0); MEAN CORPUSCULAR HEMOGLOBIN 29.2 pg (27.0-34.0); MEAN CORPUSCULAR HGB CONC 33.9 g/dL (33.0-35.0); MEAN CORPUSCULAR VOLUME 86.2 fL (80.0-100.0); MEAN PLATELET VOLUME 8.8 fL (7.4-11.0); MONOCYTES # (AUTO) 0.8 x10^3/uL (0.3-0.8); MONOCYTES % (AUTO) 8.5 % (0.0-13.0); NEUTROPHILS % (AUTO) 65.1 % (42.0-75.0); PLATELET COUNT 218 X10^3/uL (150.0-450.0); RED BLOOD COUNT 3.92 X10^6/uL (4.7-6.0); RED CELL DISTRIBUTION WIDTH 13.2 % (11.6-16.5); WHITE BLOOD COUNT 9.1 X10^3/uL (3.6-10.0)
[2016-12-22] MEDS: ZOSYN VIAL 3.375 GM 3.375 GM in NS 100 ML IV + SPIKE MINIBAG* 100 ML IV SCH ×3 (05:47→22:13)
[2016-12-22] MEDS: GENTAMICIN TOPICAL CRM TOP SCH ×3 (05:48→22:13)
[2016-12-22] MEDS: MILK OF MAGNESIA PO PRN (09:46)
[2016-12-22] MEDS: ZYPREXA 5 MG PO SCH ×2 (09:46→22:12)
[2016-12-22] MEDS: KLONOPIN TAB 0.5 MG PO SCH (09:46)
[2016-12-22] MEDS: ASPIRIN EC 81 MG PO SCH (09:47)
[2016-12-22] MEDS: MEGACE PO SCH ×2 (09:47→22:12)
[2016-12-22] MEDS: PROZAC PO SCH (09:47)
[2016-12-22] MEDS ORDERED: LANOXIN PO SCH (11:00)
[2016-12-22] MEDS: LANOXIN INJ IVP SCH (11:07)
[2016-12-22] MEDS: ROCEPHIN VIAL 1 GM 1 GM in NS 50 ML IV + SPIKE MINIBAG* 50 ML IV SCH (11:39)
[2016-12-22] MEDS: ALBUMIN HUMAN 25%- 100ML 100 ML IV SCH (11:41)
[2016-12-22] MEDS: VIBRAMYCIN 100 MG in D5W 250 ML IV 250 ML IV SCH ×2 (12:00→22:10)
[2016-12-22] MEDS ORDERED: DULCOLAX SUPPOSITORY 10 MG RECTAL ONE (13:20)
[2016-12-22] MEDS ORDERED: ARICEPT TAB 10 MG PO SCH (21:00)
[2016-12-22] MEDS: DESYREL PO SCH (22:12)
[2016-12-22] MEDS: FLOMAX PO SCH (22:12)
[2016-12-22] MEDS: LOVENOX INJ 60 MG SYR SC SCH (22:12)
[2016-12-23] MEDS: LR 1000 ML IV 1,000 ML IV SCH (04:08)
[2016-12-23 04:53] VITALS: BP 118/78
[2016-12-23] MEDS: ZOSYN VIAL 3.375 GM 3.375 GM in NS 100 ML IV + SPIKE MINIBAG* 100 ML IV SCH (05:55)
[2016-12-23] MEDS: GENTAMICIN TOPICAL CRM TOP SCH (05:55)
[2016-12-23] MEDS ORDERED: BUTT CREAM (COMPOUND) TOP PRN (06:40)
== END 2016-12-23 07:15 | DRG 689 ==
LOC: ER 22:07 → MED/SURG 23:18 → OBSVTOIN 12-19 08:00
PROVIDERS: ADMIT Internal Medicine; ATTEND Internal Medicine
DX: N39.0 Urinary tract infection, site not specified (principal); R41.82 Altered mental status, unspecified; R41.0 Disorientation, unspecified; R53.1 Weakness; I25.10 Atherosclerotic heart disease of native coronary artery without angina pectoris; F01.51 Vascular dementia, unspecified severity, with behavioral disturbance; I10 Essential (primary) hypertension; A41.89 Other specified sepsis; T83.511A Infection and inflammatory reaction due to indwelling urethral catheter, initial encounter; I48.91 Unspecified atrial fibrillation; D72.828 Other elevated white blood cell count; B96.29 Other Escherichia coli [E. coli] as the cause of diseases classified elsewhere; B95.62 Methicillin resistant Staphylococcus aureus infection as the cause of diseases classified elsewhere; R36.9 Urethral discharge, unspecified; Z86.79 Personal history of other diseases of the circulatory system; R82.99 Other abnormal findings in urine
CPT/HCPCS: 36415; 70450; 71010; 73521; 80053; 80162; 81001; 83605; 85025; 87040; 87070; 87077; 87086; 87088; 87186; 87205; 93005; 96365; 96374; 99284; A4216; A4222; P9047; S0179; G0378; J0290; J0696; J1160; J1580; J1650; J2543; J3490; J7120

== ENCOUNTER → 2017-01-26 | Outpatient (CLI) | payer OTHER, MEDICARE ==
--- NOTE | 2017-01-26 14:45 | RAD ---
HISTORY: Injury, left femur pain, fall Study: Left femur two view Comparison: None Findings: The bones are osteopenic. No acute cortical disruption or dislocation can be identified. The femora l head and neck are unremarkable in their appearance. No significant soft tissue swelling or injury can be seen. IMPRESSION: 1. Osteopenia 2. No fracture identified Reported By:
--- NOTE | 2017-01-26 14:45 | RAD ---
HISTORY: Injury, fall, left hip pain Study: Left hip two views, AP pelvis Comparison: December 18, 2016 Findings: The bones are osteopenic peer E A single frontal view of the pelvis demonstrates the pelvic ring to be intact. No evidence for acute cortical disruption or dislocation of the hip can be observed. Fr og leg views of the hip fails to demonstrate evidence for fracture or significant joint abnormality. however, if the patient continues to be symptomatic CT or MRI could be obtained in order to detect a fracture that is radiographically occult due to osteopenia. Impression: 1. Osteopenia 2. No fracture identified Reported By:
== END ==
LOC: RAD 13:42
PROVIDERS: ATTEND Internal Medicine
DX: Z91.81 History of falling (principal); M85.89 Other specified disorders of bone density and structure, multiple sites
CPT/HCPCS: 73501; 73552

== ENCOUNTER → 2017-02-09 | Outpatient (CLI) | payer OTHER, MEDICARE ==
--- NOTE | 2017-02-09 16:18 | VAS ---
HISTORY: Extremity pain, swelling, and edema Study: Bilateral lower extremity Doppler venous ultrasound. TECHNIQUE: Multiple whelan scale and color flow Doppler images of the deep venous system were obtaine d of the right and left lower extremity. FINDINGS: The deep venous system of the right and left lower extremities were evaluated from the level of the common femoral veins through the popliteal veins, bilaterally. There is an occlusive DVT seen throu ghout the left lower extremity which extends from the common femoral vein into the popliteal vein. T here is a focal DVT also seen within the right popliteal vein on this exam. IMPRESSION: Positive examination for DVT, as above. Reported By:
== END | disposition home or self-care (01) ==
LOC: RAD 14:10
PROVIDERS: ATTEND Internal Medicine
DX: R60.0 Localized edema (principal); R09.89 Other specified symptoms and signs involving the circulatory and respiratory systems; I82.412 Acute embolism and thrombosis of left femoral vein; I82.432 Acute embolism and thrombosis of left popliteal vein
CPT/HCPCS: 93970

== ENCOUNTER 2017-02-10 18:16 | Inpatient (IN) | payer OTHER, MEDICARE ==
[~2017-02-10 18:16] MED LIST: NS 100 ML IV IV ONE
--- NOTE | 2017-02-10 19:07 | DR.GENAD ---
HPI - HPI Comment HPI Comment: PATIENT IS ON ELIQUIS FOR RECENTLY DIAGNOSE DVT. HERE FOR FURTHER EVALUATION HE IS HAVING INCREASING SOB AND CHEST DISCONFORT. HE IS COUGHING, NO DYSURIA. - Complaint/Symptoms Chief Complaint Doctors Comments: SOB, RAPID HEART RATE AND CHEST PAIN FOR FEW DAYS. WORSE TODAY. HISTORY PER . Chief Complaint:: r/o PE and suspected clots in bilat lower ext - Nurses notes reviewed Nurses Notes Review: Yes - Source History Provided: Skilled Nursing - Mode of Arrival Mode of Arrival: Wheelchair - Timing Onset of Chief Complaint: 02/09/17 Came on: Gradually - Duration Duration: Constant Duration: Days - Severity Severity: Moderate PMH - PMH Past Medical History: Yes Past Medical History: Anxiety, Coronary Artery Disease, Dementia, Depression, Hypertension Past Surgical History: Yes Surgical History: Ortho Surgery - Family History History of Family Medical Conditions: Yes Family Medical History: Hypertension - Social History Does patient currently use any type of tobacco product: No Have you used tobacco products in the last 12 months: No Do you use any recreational Drugs:: No - infectious screening In the last 2 months have you had wt loss of >10#?: NO Have you had fever, night sweats or hemotysis?: No Have you traveled outside the country in the last 6 months?: No Isolation: Standard ROS - Review of Systems Constitutional: Weakness, Fatigue, Loss of Appetite. negative: Chills, Diaphoresis, Fever Eyes: No Symptoms Reported. negative: Eye Pain, Discharge ENTM: Nose Congestion. negative: Ear Pain, Nose Discharge, Throat Pain Respiratoy: Productive Cough, Short of Breath, Wheezing. negative: Hemoptysis Cardiovascular: Chest Pain, Edema, Palpitations Gastrointestinal/Abdominal: No Symptoms Reported. negative: Abdominal Pain, Constipation, Diarrhea, Nausea, Vomiting Genitourinary: No Symptoms Reported. negative: Dysuria, Hematuria Neurological: Headache, Weakness, Dizziness Musculoskeletal: Muscle Pain Integumentary: Change in Color Hematologic/Lymphatic: Anemia Endocrine: No Symptoms Reported All Other Systems: Reviewed and Negative PE - Vital Signs Vitals: Temperature 97.4 F Pulse Rate 85 Respiratory Rate 16 Blood Pressure [Left Calf] 142/82 Blood Pressure [Right Calf] 178/86 Blood Pressure [Right Arm] 118/78 Blood Pressure [Left Arm] 120/77 Blood Pressure 119/73 O2 Sat by Pulse Oximetry 98 - General Limitations: Altered Mental Status (DEMENTIA) General Appearance: Alert, In Distress - Head Head Exam: Normal Inspection - Eyes Eye exam: PERRL. negative: Scleral Icterus, Conjunctival Injection - ENT ENT Exam: Normal External Ear Exam TM/Canal Exam: Bilateral Normal Nose Exam: Normal Nose Exam Mouth Exam: Normal Inspection Throat Exam: Normal Inspection - Neck Neck Exam: Trachea Midline - Chest Chest Inspection: Symmetric Chest Wall Rise - Respiratory Respiratory Exam: Normal Lung Sounds Bilat Respiratory Exam: Bilateral Clear to Auscultation - Cardiovascular Cardiovascular Exam: Tachycardia, Irregular Rhythm, Normal Heart Sounds - Abdominal Exam Abdominal Exam: Normal Bowel Sounds, Soft. negative: Tenderness - Extremities Extremities Exam: Edema - Back Back Exam: Paraspinal Tenderness - Neurologic Neurological Exam: Alert, Other (AMS, DEMENTIA) - Psychiatric Psychiatric Exam: Normal Affect, Normal Mood - Skin Skin Exam: Normal Color MDM - Additional Information Additional Information Obtained From: Family - Differential Diagnosis Differential Diagnosis: A FIB WITH RVR, PNEMONIA, UTI, CHF, NH, CHEST PAIN Course - Treatment Treatment: SEE ORDERS. - Consultation Consultation Comments: DISCUSS PATIENT WITH DR. FORREST. HE WILL ADMIT PATIENT. - Education/Counseling Education/Counseling: Family, Education Educated On: Treatment, Diagnosis, Needs for Follow Up ROR - Labs Reviewed Laboratory Results Reviewed?: Yes Result Diagrams: 02/11/17 04:00 02/11/17 04:00 Laboratory: WBC 15.3 X10^3/uL (3.6-10.0) H 02/10/17 20:00 RBC 3.83 X10^6/uL (4.7-6.0) L 02/10/17 20:00 Hgb 11.1 g/dL (13.5-18.0) L 02/10/17 20:00 Hct 34.1 % (42.0-54.0) L 02/10/17 20:00 MCV 88.9 fL (80.0-100.0) 02/10/17 20:00 MCH 29.1 pg (27.0-34.0) 02/10/17 20:00 MCHC 32.7 g/dL (33.0-35.0) L 02/10/17 20:00 RDW 17.3 % (11.6-16.5) H 02/10/17 20:00 Plt Count 240 X10^3/uL (150.0-450.0) 02/10/17 20:00 MPV 7.6 fL (7.4-11.0) 02/10/17 20:00 Neut % 85.1 % (42.0-75.0) H 02/10/17 20:00 Lymph % 6.9 % (21.0-51.0) L 02/10/17 20:00 [place] % 7.5 % (0.0-13.0) 02/10/17 20:00 Eos % 0.0 % (0.9-2.9) L 02/10/17 20:00 Baso % 0.5 % (0.2-1.0) 02/10/17 20:00 Neut # 13.0 x10^3/uL (2.2-4.8) H 02/10/17 20:00 Lymph # 1.1 X10^3/uL (1.3-2.9) L 02/10/17 20:00 [place] # 1.2 x10^3/uL (0.3-0.8) H 02/10/17 20:00 Eos # 0.0 x10^3/uL (0.0-0.2) 02/10/17 20:00 Baso # 0.1 X10^3/uL (0.0-0.1) 02/10/17 20:00 Absolute Nucleated RBC 0.0 /100WBC 02/10/17 20:00 Sodium 138 mmol/L (136-145) 02/10/17 20:00 Corrected Sodium 140 mmol/L (136-145) 02/10/17 20:00 Potassium 4.4 mmol/L (3.5-5.1) 02/10/17 20:00 Chloride 103 mmol/L (98-107) 02/10/17 20:00 Carbon Dioxide 25.1 mmol/L (21-32) 02/10/17 20:00 BUN 20 mg/dL (7-18) H 02/10/17 20:00 Creatinine 0.99 mg/dL (0.70-1.30) 02/10/17 20:00 Est GFR (MDRD) Af Amer > 60 (>60) 02/10/17 20:00 Est GFR (MDRD) Non-Af > 60 (>60) 02/10/17 20:00 Glucose 176 mg/dL (65-99) H 02/10/17 20:00 Calcium 9.6 mg/dL (8.5-10.1) 02/10/17 20:00 Corrected Calcium 10.6 mg/dL (8.5-10.1) H 02/10/17 20:00 Total Bilirubin 0.60 mg/dL (0.2-1.0) 02/10/17 20:00 AST 18 Units/L (15-37) 02/10/17 20:00 ALT 18 Units/L (12-78) 02/10/17 20:00 Alkaline Phosphatase 84 Units/L (46-116) 02/10/17 20:00 Creatine Kinase 20 Units/L (39-308) L 02/10/17 20:00 CK-MB (CK-2) < 1.0 ng/mL (0-4.0) 02/10/17 20:00 CK/CKMB % Calc 5.0 % (<4) 02/10/17 20:00 Troponin I < 0.02 ng/mL (0-1.5) 02/10/17 20:00 Total Protein 8.2 g/dL (6.4-8.2) 02/10/17 20:00 Albumin 2.7 g/dL (3.4-5.0) L 02/10/17 20:00 Globulin 5.5 g/dL (2.5-4.5) H 02/10/17 20:00 Albumin/Globulin Ratio 0.5 Ratio (1.1-2.1) L 02/10/17 20:00 Specimen Type Catherized urine 02/10/17 21:55 Urine Color Dark yellow (YELLOW) 02/10/17 21:55 Urine Appearance Slightly hazy (CLEAR) 02/10/17 21:55 Urine pH 6.0 (5.0 - 8.0) 02/10/17 21:55 Ur Specific [place] 1.015 (1.000-1.030) 02/10/17 21:55 Urine Protein 2+ (NEGATIVE) 02/10/17 21:55 Urine Glucose (UA) 2+ (NEGATIVE) 02/10/17 21: Urine Ketones Negative (NEGATIVE) 02/10/17 21: Urine Occult Blood 5+ (NEGATIVE) 05/18/17 21:55 Urine Nitrite Negative (NEGATIVE) 02/10/17 21:55 Urine Bilirubin Negative (NEGATIVE) 02/10/17 21:55 Urine Urobilinogen 2+ (NORMAL) 02/10/17 21:55 Ur Leukocyte Esterase 2+ (NEGATIVE) 02/10/17 21:55 Urine RBC 20-25 /HPF (NEGATIVE) 02/10/17 21:55 Urine WBC 8-10 /HPF (NEGATIVE) 02/10/17 21:55 Ur Squamous Epith Cells Negative /HPF (NEGATIVE) 02/10/17 21:55 Amorphous Sediment Trace /HPF (NEGATIVE) 02/10/17 21:55 Urine Bacteria Trace /HPF (NEGATIVE) 02/10/17 21:55 Urine Mucus Moderate /HPF (NEGATIVE) 02/10/17 21:55 Ur Culture Indicated? Yes/culture set up 02/10/17 21:55 - XRAY XRAY Interpreted by: Radiologist XRAY Findings: REPORT DISCUSS WITH . - EKG Rhythm: Afib (RVR) - Diagnosis Discharge Problem: Atrial fibrillation with RVR Pneumonia Qualifiers: Pneumonia type: due to unspecified organism Laterality: right Lung location: lower lobe of lung Qualified Code(s): J18.1 - Lobar pneumonia, unspecified organism UTI (urinary tract infection) Qualifiers: Urinary tract infection type: site unspecified Hematuria presence: with hematuria Qualified Code(s): N39.0 - Urinary tract infection, site not specified DVT (deep venous thrombosis) Qualifiers: DVT location: lower extremity Affected thrombotic vein of extremity: popliteal Laterality: bilateral Chronicity: acute Qualified Code(s): I82.433 - Acute embolism and thrombosis of popliteal vein, bilateral - Discharge Plan Disposition: 09 ADMITTED INPATIENT Condition: Stable - Follow ups/Referrals - Instructions
--- NOTE | 2017-02-10 19:56 | RAD ---
AP Chest Indication: Chest pain Comparison: 12/20/2016 Findings: Examination is significantly limited by patient rotation. There is questionable pneumothorax within the left upper lung the versus artifact or skin fold. The right lung demonstrates layering right-sided pleural effusion with increased opacity within the righ t lung base potentially representing developing infiltrate or compressive atelectasis. Heart size is unchanged. No acute osseous abnormality. Impression: 1.Questionable left-sided apical pneumothorax, recommend correlation with patient's symptoms and phy sical exam findings and repeat portable radiographic evaluation with patient in improved positioning and removal of the external material which may be a source of artifact. 2. Moderate size layering right pleural effusion with either compressive atelectasis or developing i nfiltrate within the right lower lobe. Reported By:
[2017-02-10 20:13] LABS: BASOPHILS # (AUTO) 0.1 X10^3/uL (0.0-0.1); BASOPHILS % (AUTO) 0.5 % (0.2-1.0); HEMATOCRIT 34.1 % (42.0-54.0); HEMOGLOBIN 11.1 g/dL (13.5-18.0); LYMPHOCYTES # (AUTO) 1.1 X10^3/uL (1.3-2.9); LYMPHOCYTES % (AUTO) 6.9 % (21.0-51.0); MEAN CORPUSCULAR HEMOGLOBIN 29.1 pg (27.0-34.0); MEAN CORPUSCULAR HGB CONC 32.7 g/dL (33.0-35.0); MEAN CORPUSCULAR VOLUME 88.9 fL (80.0-100.0); MEAN PLATELET VOLUME 7.6 fL (7.4-11.0); MONOCYTES # (AUTO) 1.2 x10^3/uL (0.3-0.8); MONOCYTES % (AUTO) 7.5 % (0.0-13.0); NEUTROPHILS % (AUTO) 85.1 % (42.0-75.0); PLATELET COUNT 240 X10^3/uL (150.0-450.0); RED BLOOD COUNT 3.83 X10^6/uL (4.7-6.0); RED CELL DISTRIBUTION WIDTH 17.3 % (11.6-16.5); WHITE BLOOD COUNT 15.3 X10^3/uL (3.6-10.0)
[2017-02-10 20:32] LABS: BLOOD UREA NITROGEN 20 mg/dL (7-18); CALCIUM 9.6 mg/dL (8.5-10.1); CARBON DIOXIDE 25.1 mmol/L (21-32); CHLORIDE 103 mmol/L (98-107); COR NA(FOR HYPERGLY) 140 mmol/L (136-145); CREATININE 0.99 mg/dL (0.70-1.30); GLUCOSE 176 mg/dL (65-99); SODIUM 138 mmol/L (136-145); TROPONIN I < 0.02 ng/mL (0-1.5); eGFR BLACK RACES > 60 (>60); eGFR NON BLACK RACES > 60 (>60)
[2017-02-10 20:47] LABS: ALANINE AMINOTRANSFERASE 18 Units/L (12-78); ALBUMIN 2.7 g/dL (3.4-5.0); ALKALINE PHOSPHATASE 84 Units/L (46-116); ASPARTATE AMINO TRANSFERASE 18 Units/L (15-37); COR CA(FOR HYPOALB) 10.6 mg/dL (8.5-10.1); CREATINE KINASE 20 Units/L (39-308); CREATINE KINASE MB < 1.0 ng/mL (0-4.0); TOTAL PROTEIN 8.2 g/dL (6.4-8.2)
[2017-02-10 22:06] LABS: BILIRUBIN,URINE NEGATIVE (NEGATIVE); BLOOD/HEMOGLOBIN,URINE 5+ (NEGATIVE); GLUCOSE, URINE 2+ (NEGATIVE); KETONES,URINE NEGATIVE (NEGATIVE); LEUKOCYTE ESTERASE ,URINE 2+ (NEGATIVE); NITRITES,URINE NEGATIVE (NEGATIVE); PROTEIN,URINE 2+ (NEGATIVE); UROBILINOGEN,URINE 2+ (NORMAL)
--- NOTE | 2017-02-10 22:07 | CT ---
HISTORY: Abnormal chest x-ray, chest pain Study: CT chest with contrast Comparison: Chest radiographs performed earlier today also on February 10, 2017 Technique: Multiple axial images of the chest were obtained from the thoracic inlet to the upper abd omen without the administration of IV contrast. Findings: Scattered subcentimeter lymph nodes are seen within the mediastinum. An approximate 1.6 x 2.0 cm low attenuation lesion is seen within the right lobe of the thyroid and may be further evaluated with n onemergent thyroid ultrasound. The heart is enlarged. Atherosclerotic changes are seen within the v isualized pulmonary arteries and aorta. Mild pericardial thickening versus a small pericardial effus ion measuring up to 6 mm is noted. Interstitial changes are seen within both lungs. A small to mode rate-sized right pleural effusion is demonstrated with adjacent compressive atelectasis and or infil trate. Atelectasis is demonstrated within the left lung base as well. No CT evidence of pneumothorax is appreciated. IMPRESSION: 1. No evidence of pneumothorax is appreciated. 2. Right-sided pleural effusion with right basilar atelectasis and or infiltrate. 3. Cardiomegaly. 4. Right-sided thyroid lesion which may be further evaluated with nonemergent thyroid ultrasound. Reported By:
[2017-02-10 22:15] LABS: APPEARANCE,URINE SLIGHTLY HAZY (CLEAR); COLOR,URINE DARK YELLOW (YELLOW); RBC,URINE 20-25 /HPF (NEGATIVE); SQUAMOUS EPITHELIAL CELL,UR NEGATIVE /HPF (NEGATIVE)
[2017-02-10 22:16] LABS: AMORPHOUS SEDIMENT,UR TRACE /HPF (NEGATIVE); BACTERIA,URINE TRACE /HPF (NEGATIVE); MUCUS,URINE MODERATE /HPF (NEGATIVE)
[2017-02-10] MEDS ORDERED: ROCEPHIN VIAL 1 GM 1 GM in NS 50 ML IV + SPIKE MINIBAG* 50 ML IV ONE (22:18)
[2017-02-10] MEDS ORDERED: TUSSIONEX PENNKINETIC SUSP PO PRN (22:40)
[2017-02-10] MEDS ORDERED: ROCEPHIN VIAL 1 GM ONE (22:42)
[2017-02-10] MEDS ORDERED: NS 50 ML IV + SPIKE MINIBAG* 50 ML IV ONE (22:42)
[2017-02-10] MEDS: NS 1000 ML 1,000 ML IV SCH (22:45)
[2017-02-11] MEDS: ZOSYN VIAL 3.375 GM 3.375 GM in NS 100 ML IV + SPIKE MINIBAG* 100 ML IV SCH ×4 (00:20→22:10)
[2017-02-11] MEDS: DUONEB 0.5 MG/3 MG NEB SCH ×6 (01:00→20:39)
[2017-02-11 01:52] VITALS: BMI 18.8
[2017-02-11 05:48] LABS: BASOPHILS # (AUTO) 0.1 X10^3/uL (0.0-0.1); BASOPHILS % (AUTO) 0.5 % (0.2-1.0); EOSINOPHILS % (AUTO) 0.1 % (0.9-2.9); HEMATOCRIT 30.2 % (42.0-54.0); HEMOGLOBIN 9.9 g/dL (13.5-18.0); LYMPHOCYTES # (AUTO) 1.2 X10^3/uL (1.3-2.9); LYMPHOCYTES % (AUTO) 10.3 % (21.0-51.0); MEAN CORPUSCULAR HEMOGLOBIN 28.9 pg (27.0-34.0); MEAN CORPUSCULAR HGB CONC 32.7 g/dL (33.0-35.0); MEAN CORPUSCULAR VOLUME 88.3 fL (80.0-100.0); MEAN PLATELET VOLUME 8.9 fL (7.4-11.0); MONOCYTES # (AUTO) 1.1 x10^3/uL (0.3-0.8); MONOCYTES % (AUTO) 9.6 % (0.0-13.0); NEUTROPHILS # (AUTO) 9.1 x10^3/uL (2.2-4.8); NEUTROPHILS % (AUTO) 79.5 % (42.0-75.0); PLATELET COUNT 220 X10^3/uL (150.0-450.0); RED BLOOD COUNT 3.42 X10^6/uL (4.7-6.0); RED CELL DISTRIBUTION WIDTH 17.1 % (11.6-16.5); WHITE BLOOD COUNT 11.5 X10^3/uL (3.6-10.0)
[2017-02-11 05:58] LABS: ALANINE AMINOTRANSFERASE 20 Units/L (12-78); ALBUMIN 2.3 g/dL (3.4-5.0); ALKALINE PHOSPHATASE 76 Units/L (46-116); ASPARTATE AMINO TRANSFERASE 21 Units/L (15-37); BLOOD UREA NITROGEN 19 mg/dL (7-18); CALCIUM 8.8 mg/dL (8.5-10.1); CARBON DIOXIDE 25.4 mmol/L (21-32); CHLORIDE 105 mmol/L (98-107); COR CA(FOR HYPOALB) 10.2 mg/dL (8.5-10.1); COR NA(FOR HYPERGLY) 139 mmol/L (136-145); CREATININE 0.79 mg/dL (0.70-1.30); GLUCOSE 116 mg/dL (65-99); SODIUM 139 mmol/L (136-145); TOTAL PROTEIN 7.2 g/dL (6.4-8.2); eGFR BLACK RACES > 60 (>60); eGFR NON BLACK RACES > 60 (>60)
[2017-02-11] MEDS ORDERED: TYLENOL 500 MG TAB EXTRA STRENGTH PO PRN (08:07)
[2017-02-11] MEDS ORDERED: LANOXIN ONE (09:00)
[2017-02-11] MEDS ORDERED: EXELON PO ONE (09:01)
[2017-02-11] MEDS: EXELON PO SCH ×2 (09:45→20:55)
[2017-02-11] MEDS: MEGACE PO SCH ×2 (09:45→20:54)
[2017-02-11] MEDS: ALBUMIN HUMAN 25%- 100ML 100 ML IV SCH (09:45)
[2017-02-11] MEDS: GEODON PO SCH ×2 (09:45→20:54)
[2017-02-11] MEDS: ASPIRIN EC 81 MG PO SCH (09:45)
[2017-02-11] MEDS: ROBITUSSIN DM PO SCH ×5 (09:45→20:54)
[2017-02-11] MEDS: PROTONIX TAB 40 MG PO SCH (09:45)
[2017-02-11] MEDS: ELIQUIS PO SCH ×2 (09:45→20:55)
[2017-02-11] MEDS: VSL#3 PO SCH (09:47)
[2017-02-11] MEDS: LANOXIN PO SCH (09:47)
[2017-02-11] MEDS ORDERED: BUTT CREAM (COMPOUND) TOP PRN (11:41)
[2017-02-11] MEDS ORDERED: LANOXIN INJ IVP ONE (14:47)
--- NOTE | 2017-02-11 15:13 | DR.H&P ---
H&P - History & Physical for Day of: H&P Date: 02/10/17 - Chief Complaint Chief Complaint: SHORTNESS OF BREATH, CHEST DISCOMFORT - Allergies Allergies/Adverse Reactions: Allergies Allergy/AdvReac Type Severity Reaction Status Date / Time Iodine Allergy Intermediate Verified 11/18/16 13:41 - History of Present Illness History of Present Illness: THIS IS AN 81 YEAR OLD MALE, WHO IS A PATIENT OF OURS. HE PRESENTS TO THE EMERGENCY ROOM WITH COMPLAINTS OF SHORTNESS OF BREATH AND CHEST DISCOMFORT. HE RESIDES AT [facility]. PATIENT IS NOTED WITH A PERSISTENT, NON-PRODUCTIVE COUGH. PATIENT HAD A LOWER EXTREMITY VENOUS DOPPLER DUE TO PAIN AND SWELLING OF BOTH LOWER EXTREMITIES. IT REPORTED: OCCLUSIVE DVT SEEN THROUGHOUT THE LEFT LOWER EXTREMITY WHICH EXTENDS FROM THE COMMON FEMORAL VEIN INTO THE POPLITEAL VEIN; FOCAL DVT ALSO SEEN WITHIN THE RIGHT POPLITEAL VEIN. WE STARTED PATIENT ON ELIQUIS 5MG BID. ON AUSCULTATION, LUNGS ARE NOTED WITH WHEEZING THROUGHOUT. LABS, CT OBTAINED. CBC WNL EXCEPT: WBC 15.3, H/H 11.1/34.1. CMP WNL EXCEPT: BUN 20, GLUCOSE 176, ALBUMIN 2.7. CARDIAC ENZYMES WNL. EKG: ATRIAL FIBRILLATION, RATE 128. A CHEST CT WAS OBTAINED IN THE ER TO RULE OUT PULMONARY EMBOLUS. IT REPORTS: NO EVIDENCE OF PNEUMOTHORAX; RIGHT-SIDED PLEURAL EFFUSION WITH RIGHT BASILAR ATELECTASIS AND OR INFILTRATE; CARDIOMEGALY; RIGHT-SIDED THYROID LESION. WE WILL ADMIT PATIENT FOR FURTHER TREATMENT AND EVALUATION OF PNEUMONIA AND DVT. WE WILL START PNEUMONIA PROTOCOL WITH IV ANTIBIOTICS AND AGGRESSIVE NEB TREATMENTS. WE WILL FOLLOW UP IN AM WITH LABS. - Past Medical History Past Medical History: Anxiety, Coronary Artery Disease, Dementia, Depression, GERD, Hypertension, Sleep Apnea Additional Medical History: Atrial Fib, Muscle Weakness, Prostate Cancer, Cataracts, Urinary Tract Infections, BPH - Past Surgical History Surgical History: Ortho Surgery Additional Surgical History: Cardiac Ablation, Back Surgery - Family History Family Medical History: Coronary Artery Disease, Hypertension - Social History Does patient currently use any type of tobacco product: No Have you used tobacco products in the last 12 months: No Type of Tobacco Use: None Does any household member use tobacco: No Alcohol Use: None Drug Use: None - Medications Home Medications: Acetaminophen [Tylenol 500 mg Tab Extra Strength] 1,000 mg PO Q8H PRN 02/10/17 [ History Confirmed 02/11/17] Magnesium Hydroxide [Milk of Magnesia 400 mg/5Ml] 30 ml PO PRN PRN 02/10/17 [ History Confirmed 02/11/17] Pantoprazole Sodium 40 mg [Protonix Tab 40 mg] 40 mg PO DAILY 02/10/17 [History Confirmed 02/11/17] Probiotic Product [Probiotic Daily] 1 cap PO DAILY 02/10/17 [History Confirmed 02/11/17] RX: Apixaban [Eliquis] 5 mg PO BID 02/10/17 [History Confirmed 02/11/17] RX: Diazepam [VALIUM 5 MG *] 5 mg PO HS 02/10/17 [History Confirmed 02/11/17] RX: Digoxin [Digitek] 0.25 mg PO DAILY 02/10/17 [History Confirmed 02/11/17] RX: Rivastigmine Tartrate 1.5 mg PO BID 02/10/17 [History Confirmed 02/11/17] Ziprasidone HCl [Geodon 20 mg] 20 mg PO BID 02/10/17 [History Confirmed 02/11/17 ] - Review of Systems Constitutional: Weakness, Malaise Eyes: No Symptoms Reported. denies: Pain, Vision Change, Conjunctivae Inflammation, Eyelid Inflammation, Redness ENT: No Symptoms Reported. denies: Ear Pain, Ear Discharge, Nose Pain, Nose Discharge, Nose Congestion, Mouth Pain, Mouth Swelling, Throat Pain, Throat Swelling Respiratory: Cough, Shortness of Breath, SOB with Excertion, Wheezing. denies: Hemoptysis, Pleuritic Pain, Sputum Cardiovascular: Chest Pain. denies: Palpitations, Orthopnea, Paroxysmal Noc. Dyspnea, Edema, Light Headedness Gastrointestinal: No Symptoms Reported. denies: Nausea, Vomiting, Abdominal Pain, Diarrhea, Constipation, Melena, Hematochezia Genitourinary: No Symptoms Reported. denies: Dysuria, Frequency, Incontinence, Hematuria, Retention Musculoskeletal: Other (Generalized Muscle Weakness). denies: Back Pain, Hand Pain, Leg Pain, Foot Pain, Neck Pain Skin: No Symptoms Reported. denies: Rash, Lesions, Jaundice Neurological: No Symptoms Reported. denies: Weakness, Numbness, Incoordination , Change in Speech, Confusion, Seizures - Physical Exam Vital Signs: Temperature 98.6 F Pulse Rate [Apical] 75 Pulse Rate 100 Respiratory Rate 14 Blood Pressure [Right Arm] 120/69 Blood Pressure 119/73 O2 Sat by Pulse Oximetry 100 Oriented: Person Eyes: Normal. negative: Blurred Vision, Diplopia, Discharge, Pain, Redness, Photophobia Ear: Normal. negative: Swelling, Ecchymosis, Hemotypanum, Abrasion, Laceration Nose: Normal. negative: Injected, Discharge, Blood Throat: Dry. negative: Tonsillar Hypertrophy, Exudate Respiratory: Wheezes Throughout Cardiovascular: Irregular (Irreg, irreg). negative: Murmur : Normal. negative: Dysuria, Hematuria, Frequency, Discharge, Testicular Pain Auscultation: Bowel Sounds: Normal. negative: Bruit Palpation: Normal. negative: Spleen Enlarged, Liver Enlarged, Mass Pulsatile Tenderness: Normal. negative: Rebound, Guarding, Rigidity Skin: Normal. negative: Diaphoresis, Wound, Bruising, Ecchymosis Musculoskeletal: Instability Psychiatric: Other (Confusion, consistent with baseline) Mood Description: Calm Speech Pattern: Clear, Inappropriate - Assessment/Plan (1) Pneumonia Qualifiers: Pneumonia type: due to unspecified organism Aspiration pneumonia type: A Laterality: right Lung location: lower lobe of lung Qualified Code(s): J18.1 - Lobar pneumonia, unspecified organism Status: Acute Plan: ADMIT PATIENT, START IV ANTIBIOTICS, DUONEBS, SUPPLEMENTAL OXGYEN, ROBITUSSIN, MONITOR LABS, CHEST XRAY, AND VITAL SIGNS. (2) Shortness of breath Status: Acute Plan: ABOVE. (3) DVT (deep venous thrombosis) Qualifiers: DVT location: lower extremity Affected thrombotic vein of extremity: popliteal Laterality: bilateral Chronicity: acute Qualified Code(s): I82.433 - Acute embolism and thrombosis of popliteal vein, bilateral Status: Acute Plan: CONTINUE ELIQUIS, MONITOR. (4) UTI (urinary tract infection) Qualifiers: Urinary tract infection type: site unspecified Hematuria presence: with hematuria Indwelling urinary catheter type: I Encounter type: E Qualified Code(s): N39.0 - Urinary tract infection, site not specified; R31.9 - Hematuria , unspecified Status: Acute Plan: START IV ZOSYN, AWAIT CULTURE, MONITOR. (5) History of atrial fibrillation Status: Chronic (6) CAD (coronary artery disease) Qualifiers: Coronary Disease-Associated Artery/Lesion type: [place] artery [place] vs. transplanted heart: [place] heart Associated angina: without angina Qualified Code(s): I25.10 - Atherosclerotic heart disease of [place] coronary artery without angina pectoris Status: Chronic (7) Dementia Qualifiers: Dementia type: vascular dementia Alzheimer's disease onset: A Dementia behavioral disturbance: with behavioral disturbance Qualified Code(s): F01.51 - Vascular dementia with behavioral disturbance Status: Chronic (8) Hx of malignant neoplasm of prostate Status: Chronic
--- NOTE | 2017-02-11 15:43 | PCM.PROG ---
Progress Note - Progress Note for Day of Date: 02/11/17 - Subjective Subjective: PATIENT RESTS IN BED, AT BEDSIDE. PATIENT CONTINUES WITH NON- PRODUCTIVE COUGH. HE CONTINUES TREATMENT FOR RLL PNEUMONIA WITH IV ANTIBIOTICS AND AGGRESSIVE NEB TREATMENTS. HE ALSO CONTINUES ON ELIQUIS FOR BILATERAL LOWER DVT'S. LOWER EXTREMITIES ARE REDDENED AND PAINFUL TO TOUCH. ON AUSCULTATION, LUNGS ARE NOTED WITH SCATTERED WHEEZING THROUGHOUT. PATIENT AFEBRILE. CBC WNL EXCEPT: WBC 11.5, H/H 9.9/30.2. CMP WNL EXCEPT: BUN 19, GLUCOSE 116, ALBUMIN 2.3. WE WILL START ALBUMIN IV DAILY, CONTINUE CURRENT TREATMENT AND MONITOR. - Past Medical Family Social History Past Med/Fam/Surg Hx: No changes since H&P Allergies: Allergies Iodine Allergy (Intermediate, Verified 11/18/16 13:41) - Review of Systems ROS: No change since H&P - Vital Signs and I&O's Vital Signs: Temperature 98.6 F Pulse Rate [Apical] 75 Pulse Rate 97 Respiratory Rate 14 Blood Pressure [Right Arm] 120/69 Blood Pressure 119/73 O2 Sat by Pulse Oximetry 100 Intake and Output: Intake & Output 02/09/17 02/10/17 02/11/17 02/12/17 11:59 11:59 11:59 11:59 Intake Total 514 550 Output Total 400 1475 Balance 114 -925 - Physical Exam Oriented: Not Oriented Eyes: Normal. negative: Blurred Vision, Diplopia, Discharge, Pain, Redness, Photophobia Ear: Normal. negative: Swelling, Ecchymosis, Hemotypanum, Abrasion, Laceration Nose: Normal. negative: Injected, Discharge, Blood Throat: Dry. negative: Tonsillar Hypertrophy, Exudate Respiratory: Generalized, Wheezes Cardiovascular: Irregular (Irreg, irreg). negative: Murmur : Normal. negative: Dysuria, Hematuria, Frequency, Discharge, Testicular Pain Auscultation: Bowel Sounds: Normal. negative: Bruit Palpation: Normal. negative: Spleen Enlarged, Liver Enlarged, Mass Pulsatile Tenderness: Normal. negative: Rebound, Guarding, Rigidity Skin: Wound (RIght Elbow Skin Tear, Left Elbow Skin Tear, Right Lower Leg Abrasion). negative: Diaphoresis, Bruising, Ecchymosis Musculoskeletal: Instability Psychiatric: Other (Confusion, consistent with baseline) Mood Description: Calm Speech Pattern: Clear, Inappropriate - Laboratory and Diagnostics Result Diagrams: 02/11/17 04:00 02/11/17 04:00 Labs: Laboratory WBC 11.5 X10^3/uL (3.6-10.0) H 02/11/17 04:00 RBC 3.42 X10^6/uL (4.7-6.0) L 02/11/17 04:00 Hgb 9.9 g/dL (13.5-18.0) L 02/11/17 04:00 Hct 30.2 % (42.0-54.0) L 02/11/17 04:00 MCV 88.3 fL (80.0-100.0) 02/11/17 04:00 MCH 28.9 pg (27.0-34.0) 02/11/17 04:00 MCHC 32.7 g/dL (33.0-35.0) L 02/11/17 04:00 RDW 17.1 % (11.6-16.5) H 02/11/17 04:00 Plt Count 220 X10^3/uL (150.0-450.0) 02/11/17 04:00 MPV 8.9 fL (7.4-11.0) 02/11/17 04:00 Neut % 79.5 % (42.0-75.0) H 02/11/17 04:00 Lymph % 10.3 % (21.0-51.0) L 02/11/17 04:00 [place] % 9.6 % (0.0-13.0) 02/11/17 04:00 Eos % 0.1 % (0.9-2.9) L 02/11/17 04:00 Baso % 0.5 % (0.2-1.0) 02/11/17 04:00 Neut # 9.1 x10^3/uL (2.2-4.8) H 02/11/17 04:00 Lymph # 1.2 X10^3/uL (1.3-2.9) L 02/11/17 04:00 [place] # 1.1 x10^3/uL (0.3-0.8) H 02/11/17 04:00 Eos # 0.0 x10^3/uL (0.0-0.2) 02/11/17 04:00 Baso # 0.1 X10^3/uL (0.0-0.1) 02/11/17 04:00 Absolute Nucleated RBC 0.0 /100WBC 02/11/17 04:00 Sodium 139 mmol/L (136-145) 02/11/17 04:00 Corrected Sodium 139 mmol/L (136-145) 02/11/17 04:00 Potassium 4.1 mmol/L (3.5-5.1) 02/11/17 04:00 Chloride 105 mmol/L (98-107) 02/11/17 04:00 Carbon Dioxide 25.4 mmol/L (21-32) 02/11/17 04:00 BUN 19 mg/dL (7-18) H 02/11/17 04:00 Creatinine 0.79 mg/dL (0.70-1.30) 02/11/17 04:00 Est GFR (MDRD) Af Amer > 60 (>60) 02/11/17 04:00 Est GFR (MDRD) Non-Af > 60 (>60) 02/11/17 04:00 Glucose 116 mg/dL (65-99) H 02/11/17 04:00 Calcium 8.8 mg/dL (8.5-10.1) 02/11/17 04:00 Corrected Calcium 10.2 mg/dL (8.5-10.1) H 02/11/17 04:00 Total Bilirubin 0.50 mg/dL (0.2-1.0) 02/11/17 04:00 AST 21 Units/L (15-37) 02/11/17 04:00 ALT 20 Units/L (12-78) 02/11/17 04:00 Alkaline Phosphatase 76 Units/L (46-116) 02/11/17 04:00 Creatine Kinase 20 Units/L (39-308) L 02/10/17 20:00 CK-MB (CK-2) < 1.0 ng/mL (0-4.0) 02/10/17 20:00 CK/CKMB % Calc 5.0 % (<4) 02/10/17 20:00 Troponin I < 0.02 ng/mL (0-1.5) 02/10/17 20:00 Total Protein 7.2 g/dL (6.4-8.2) 02/11/17 04:00 Albumin 2.3 g/dL (3.4-5.0) L 02/11/17 04:00 Globulin 4.9 g/dL (2.5-4.5) H 02/11/17 04:00 Albumin/Globulin Ratio 0.5 Ratio (1.1-2.1) L 02/11/17 04:00 Specimen Type Catherized urine 02/10/17 21:55 Urine Color Dark yellow (YELLOW) 02/10/17 21:55 Urine Appearance Slightly hazy (CLEAR) 02/10/17 21:55 Urine pH 6.0 (5.0 - 8.0) 02/10/17 21:55 Ur Specific [place] 1.015 (1.000-1.030) 02/10/17 21:55 Urine Protein 2+ (NEGATIVE) 02/10/17 21:55 Urine Glucose (UA) 2+ (NEGATIVE) 02/10/17 21:55 Urine Ketones Negative (NEGATIVE) 02/10/17 21:55 Urine Occult Blood 5+ (NEGATIVE) 02/10/17 21:55 Urine Nitrite Negative (NEGATIVE) 02/10/17 21:55 Urine Bilirubin Negative (NEGATIVE) 02/10/17 21:55 Urine Urobilinogen 2+ (NORMAL) 02/10/17 21:55 Ur Leukocyte Esterase 2+ (NEGATIVE) 02/10/17 21:55 Urine RBC 20-25 /HPF (NEGATIVE) 02/10/17 21:55 Urine WBC 8-10 /HPF (NEGATIVE) 02/10/17 21:55 Ur Squamous Epith Cells Negative /HPF (NEGATIVE) 02/10/17 21:55 Amorphous Sediment Trace /HPF (NEGATIVE) 02/10/17 21:55 Urine Bacteria Trace /HPF (NEGATIVE) 02/10/17 21:55 Urine Mucus Moderate /HPF (NEGATIVE) 02/10/17 21:55 Ur Culture Indicated? Yes/culture set up 02/10/17 21:55 Digoxin 0.45 ng/mL (0.9-2) L 02/11/17 04:00 - Plan (1) Pneumonia Status: Acute Qualifiers: Pneumonia type: due to unspecified organism Aspiration pneumonia type: A Laterality: right Lung location: lower lobe of lung Qualified Code(s): J18.1 - Lobar pneumonia, unspecified organism Plan: CONTINUE IV ANTIBIOTICS, DUONEBS, SUPPLEMENTAL OXGYEN, ROBITUSSIN, MONITOR LABS, CHEST XRAY, AND VITAL SIGNS. (2) Shortness of breath Status: Acute Plan: ABOVE. (3) DVT (deep venous thrombosis) Status: Acute Qualifiers: DVT location: lower extremity Affected thrombotic vein of extremity: popliteal Laterality: bilateral Chronicity: acute Qualified Code(s): I82.433 - Acute embolism and thrombosis of popliteal vein, bilateral Plan: CONTINUE ELIQUIS, MONITOR. (4) UTI (urinary tract infection) Status: Acute Qualifiers: Urinary tract infection type: site unspecified Hematuria presence: with hematuria Indwelling urinary catheter type: I Encounter type: E Qualified Code(s): N39.0 - Urinary tract infection, site not specified; R31.9 - Hematuria , unspecified Plan: CONTINUE IV ZOSYN, AWAIT CULTURE, MONITOR. (5) History of atrial fibrillation Status: Chronic (6) CAD (coronary artery disease) Status: Chronic Qualifiers: Coronary Disease-Associated Artery/Lesion type: [place] artery [place] vs. transplanted heart: [place] heart Associated angina: without angina Qualified Code(s): I25.10 - Atherosclerotic heart disease of [place] coronary artery without angina pectoris (7) Dementia Status: Chronic Qualifiers: Dementia type: vascular dementia Alzheimer's disease onset: A Dementia behavioral disturbance: with behavioral disturbance Qualified Code(s): F01.51 - Vascular dementia with behavioral disturbance (8) Hx of malignant neoplasm of prostate Status: Chronic
[2017-02-11] MEDS: VALIUM PO SCH (20:54)
[2017-02-11] MEDS: FLOMAX PO SCH (20:55)
[2017-02-12] MEDS: DUONEB 0.5 MG/3 MG NEB SCH ×6 (00:18→20:43)
[2017-02-12] MEDS: NS 1000 ML 1,000 ML IV SCH ×3 (00:53→23:00)
[2017-02-12] MEDS: ZOSYN VIAL 3.375 GM 3.375 GM in NS 100 ML IV + SPIKE MINIBAG* 100 ML IV SCH ×3 (06:09→21:34)
[2017-02-12 06:17] LABS: BASOPHILS # (AUTO) 0.1 X10^3/uL (0.0-0.1); BASOPHILS % (AUTO) 0.6 % (0.2-1.0); EOSINOPHILS % (AUTO) 0.1 % (0.9-2.9); HEMATOCRIT 29.6 % (42.0-54.0); HEMOGLOBIN 9.8 g/dL (13.5-18.0); LYMPHOCYTES # (AUTO) 1.2 X10^3/uL (1.3-2.9); LYMPHOCYTES % (AUTO) 11.4 % (21.0-51.0); MEAN CORPUSCULAR HGB CONC 32.9 g/dL (33.0-35.0); MEAN CORPUSCULAR VOLUME 88.2 fL (80.0-100.0); MEAN PLATELET VOLUME 7.8 fL (7.4-11.0); MONOCYTES # (AUTO) 0.8 x10^3/uL (0.3-0.8); MONOCYTES % (AUTO) 7.8 % (0.0-13.0); NEUTROPHILS # (AUTO) 8.5 x10^3/uL (2.2-4.8); NEUTROPHILS % (AUTO) 80.1 % (42.0-75.0); PLATELET COUNT 252 X10^3/uL (150.0-450.0); RED BLOOD COUNT 3.36 X10^6/uL (4.7-6.0); RED CELL DISTRIBUTION WIDTH 16.9 % (11.6-16.5); WHITE BLOOD COUNT 10.6 X10^3/uL (3.6-10.0)
[2017-02-12 06:24] LABS: ALANINE AMINOTRANSFERASE 24 Units/L (12-78); ALBUMIN 2.6 g/dL (3.4-5.0); ALKALINE PHOSPHATASE 77 Units/L (46-116); ASPARTATE AMINO TRANSFERASE 23 Units/L (15-37); BLOOD UREA NITROGEN 13 mg/dL (7-18); CALCIUM 9.1 mg/dL (8.5-10.1); CARBON DIOXIDE 26.7 mmol/L (21-32); CHLORIDE 105 mmol/L (98-107); COR CA(FOR HYPOALB) 10.2 mg/dL (8.5-10.1); COR NA(FOR HYPERGLY) 142 mmol/L (136-145); DIGOXIN 0.72 ng/mL (0.9-2); GLUCOSE 125 mg/dL (65-99); SODIUM 141 mmol/L (136-145); TOTAL PROTEIN 7.5 g/dL (6.4-8.2); eGFR BLACK RACES > 60 (>60); eGFR NON BLACK RACES > 60 (>60)
--- NOTE | 2017-02-12 07:51 | RAD ---
HISTORY: Cough and congestion Study: Single view of the chest. Comparison: 02/10/2017 Findings: The cardiomediastinal silhouette is normal. Bilateral pulmonary vascular congestion with trace right pleural effusion. Previously questioned left-sided pneumothorax not seen on today's study. Osseous structures demonstrate no acute abnormality. IMPRESSION: 1. Pulmonary vascular congestion and possible trace right pleural effusion. Reported By:
[2017-02-12] MEDS: ALBUMIN HUMAN 25%- 100ML 100 ML IV SCH (08:52)
[2017-02-12] MEDS: PROTONIX TAB 40 MG PO SCH (08:53)
[2017-02-12] MEDS: ROBITUSSIN DM PO SCH ×4 (08:53→20:54)
[2017-02-12] MEDS: GEODON PO SCH ×2 (08:53→20:54)
[2017-02-12] MEDS: ASPIRIN EC 81 MG PO SCH (08:53)
[2017-02-12] MEDS: ELIQUIS PO SCH ×2 (08:53→20:54)
[2017-02-12] MEDS: EXELON PO SCH ×2 (08:53→20:54)
[2017-02-12] MEDS: VSL#3 PO SCH (08:53)
[2017-02-12] MEDS: LANOXIN PO SCH (08:54)
[2017-02-12] MEDS: MEGACE PO SCH ×2 (08:55→20:54)
[2017-02-12] MEDS: TOPROL XL PO SCH (13:48)
[2017-02-12] MEDS: VALIUM PO SCH (20:54)
[2017-02-12] MEDS: FLOMAX PO SCH (20:54)
[2017-02-13] MEDS: DUONEB 0.5 MG/3 MG NEB SCH ×6 (00:31→21:19)
[2017-02-13] MEDS: ZOSYN VIAL 3.375 GM 3.375 GM in NS 100 ML IV + SPIKE MINIBAG* 100 ML IV SCH (05:40)
[2017-02-13] MEDS: LANOXIN PO SCH ×2 (06:03→09:24)
[2017-02-13 06:52] LABS: BASOPHILS # (AUTO) 0.1 X10^3/uL (0.0-0.1); BASOPHILS % (AUTO) 0.9 % (0.2-1.0); EOSINOPHILS % (AUTO) 0.2 % (0.9-2.9); HEMATOCRIT 30.6 % (42.0-54.0); HEMOGLOBIN 10.2 g/dL (13.5-18.0); LYMPHOCYTES # (AUTO) 1.5 X10^3/uL (1.3-2.9); LYMPHOCYTES % (AUTO) 15.1 % (21.0-51.0); MEAN CORPUSCULAR HEMOGLOBIN 29.3 pg (27.0-34.0); MEAN CORPUSCULAR HGB CONC 33.3 g/dL (33.0-35.0); MEAN CORPUSCULAR VOLUME 88.1 fL (80.0-100.0); MEAN PLATELET VOLUME 7.5 fL (7.4-11.0); MONOCYTES % (AUTO) 9.7 % (0.0-13.0); NEUTROPHILS # (AUTO) 7.6 x10^3/uL (2.2-4.8); NEUTROPHILS % (AUTO) 74.1 % (42.0-75.0); PLATELET COUNT 291 X10^3/uL (150.0-450.0); RED BLOOD COUNT 3.47 X10^6/uL (4.7-6.0); RED CELL DISTRIBUTION WIDTH 16.8 % (11.6-16.5); WHITE BLOOD COUNT 10.2 X10^3/uL (3.6-10.0)
[2017-02-13 07:17] LABS: ALANINE AMINOTRANSFERASE 26 Units/L (12-78); ALBUMIN 2.8 g/dL (3.4-5.0); ALKALINE PHOSPHATASE 74 Units/L (46-116); ASPARTATE AMINO TRANSFERASE 23 Units/L (15-37); BLOOD UREA NITROGEN 15 mg/dL (7-18); CALCIUM 9.2 mg/dL (8.5-10.1); CARBON DIOXIDE 26.8 mmol/L (21-32); CHLORIDE 106 mmol/L (98-107); COR CA(FOR HYPOALB) 10.2 mg/dL (8.5-10.1); CREATININE 0.81 mg/dL (0.70-1.30); GLUCOSE 102 mg/dL (65-99); SODIUM 142 mmol/L (136-145); TOTAL PROTEIN 7.5 g/dL (6.4-8.2); eGFR BLACK RACES > 60 (>60); eGFR NON BLACK RACES > 60 (>60)
--- NOTE | 2017-02-13 07:20 | RAD ---
HISTORY: Cough and congestion Study: Single view of the chest. Comparison: 02/12/2017 CT 02/10/2017 Findings: Cardiomegaly. No change right lung base infiltrate seen on 02/10/2017. Osseous structures demonstrate no acute abnormality. IMPRESSION: 1. No change right lung base infiltrate seen on 02/10/2017. 2. It should be noted that in the absence of a change in clinical status or intervening procedure, d aily chest x-ray has not been shown to affect outcomes in hospitalized patients. http://pubs.rsna.o rg/doi/[email or web address] Reported By:
[2017-02-13] MEDS: TOPROL XL PO SCH (09:22)
[2017-02-13] MEDS: MEGACE PO SCH ×2 (09:23→20:32)
[2017-02-13] MEDS: ELIQUIS PO SCH ×2 (09:23→20:32)
[2017-02-13] MEDS: EXELON PO SCH ×2 (09:23→20:32)
[2017-02-13] MEDS: PROTONIX TAB 40 MG PO SCH (09:23)
[2017-02-13] MEDS: ROBITUSSIN DM PO SCH ×4 (09:23→20:32)
[2017-02-13] MEDS: ASPIRIN EC 81 MG PO SCH (09:25)
[2017-02-13] MEDS: ALBUMIN HUMAN 25%- 100ML 100 ML IV SCH (09:25)
[2017-02-13] MEDS: GEODON PO SCH ×2 (09:28→20:32)
[2017-02-13] MEDS: VSL#3 PO SCH (09:28)
[2017-02-13] MEDS ORDERED: VANCOMYCIN 1 GM PREMIX (ADDVANTAGE) 250 ML IV SCH (13:07)
[2017-02-13] MEDS: VALIUM PO SCH (20:32)
[2017-02-13] MEDS: FLOMAX PO SCH (20:32)
[2017-02-13] MEDS: NS 1000 ML 1,000 ML IV SCH (23:00)
[2017-02-14] MEDS: DUONEB 0.5 MG/3 MG NEB SCH ×4 (00:34→12:05)
[2017-02-14 05:07] LABS: BASOPHILS # (AUTO) 0.1 X10^3/uL (0.0-0.1); BASOPHILS % (AUTO) 1.2 % (0.2-1.0); EOSINOPHILS % (AUTO) 0.4 % (0.9-2.9); HEMOGLOBIN 11.3 g/dL (13.5-18.0); LYMPHOCYTES # (AUTO) 2.1 X10^3/uL (1.3-2.9); LYMPHOCYTES % (AUTO) 17.3 % (21.0-51.0); MEAN CORPUSCULAR HEMOGLOBIN 29.1 pg (27.0-34.0); MEAN CORPUSCULAR HGB CONC 33.2 g/dL (33.0-35.0); MEAN CORPUSCULAR VOLUME 87.5 fL (80.0-100.0); MEAN PLATELET VOLUME 9.5 fL (7.4-11.0); MONOCYTES # (AUTO) 1.2 x10^3/uL (0.3-0.8); MONOCYTES % (AUTO) 9.4 % (0.0-13.0); NEUTROPHILS # (AUTO) 8.9 x10^3/uL (2.2-4.8); NEUTROPHILS % (AUTO) 71.7 % (42.0-75.0); PLATELET COUNT 228 X10^3/uL (150.0-450.0); RED BLOOD COUNT 3.89 X10^6/uL (4.7-6.0); RED CELL DISTRIBUTION WIDTH 16.6 % (11.6-16.5)
[2017-02-14 05:13] LABS: ALANINE AMINOTRANSFERASE 28 Units/L (12-78); ALBUMIN 3.3 g/dL (3.4-5.0); ALKALINE PHOSPHATASE 79 Units/L (46-116); ASPARTATE AMINO TRANSFERASE 35 Units/L (15-37); BLOOD UREA NITROGEN 16 mg/dL (7-18); CALCIUM 9.7 mg/dL (8.5-10.1); CHLORIDE 105 mmol/L (98-107); COR CA(FOR HYPOALB) 10.3 mg/dL (8.5-10.1); GLUCOSE 82 mg/dL (65-99); SODIUM 141 mmol/L (136-145); TOTAL PROTEIN 8.3 g/dL (6.4-8.2); eGFR BLACK RACES > 60 (>60); eGFR NON BLACK RACES > 60 (>60)
[2017-02-14 05:52] LABS: PLATELET MORPHOLOGY COMMENT NORMAL (NORMAL); WHITE BLOOD COUNT 12.4 X10^3/uL (3.6-10.0)
--- NOTE | 2017-02-14 06:04 | RAD ---
HISTORY: Follow up pneumonia Study: Chest one view Comparison: February 13, 2017 Findings: The heart is upper limits normal in size. No congestive heart failure is noted. Right basilar infilt rate is unchanged. The remainder of the lung [place]man are clear. The bony thorax is unremarkable. IMPRESSION: No change right basilar lung infiltrate Reported By:
[2017-02-14] MEDS: PROTONIX TAB 40 MG PO SCH (08:55)
[2017-02-14] MEDS: ROBITUSSIN DM PO SCH ×2 (08:55→13:12)
[2017-02-14] MEDS: TOPROL XL PO SCH (08:56)
[2017-02-14] MEDS: VSL#3 PO SCH (08:56)
[2017-02-14] MEDS: ELIQUIS PO SCH (08:56)
[2017-02-14] MEDS: GEODON PO SCH (08:56)
[2017-02-14] MEDS: MEGACE PO SCH (08:56)
[2017-02-14] MEDS: EXELON PO SCH (08:56)
[2017-02-14] MEDS: LANOXIN PO SCH (08:59)
[2017-02-14] MEDS ORDERED: MACROBID CAP 100 MG EXT REL PO SCH (10:00)
[2017-02-14] MEDS: ALBUMIN HUMAN 25%- 100ML 100 ML IV SCH (11:44)
[2017-02-14] MEDS: ASPIRIN EC 81 MG PO SCH (11:44)
[2017-02-14 11:49] VITALS: BP 143/73
[2017-02-15] MEDS ORDERED: INVANZ INJ 1 GM VIAL ONE (16:33)
== END 2017-02-14 14:15 | DRG 194 ==
LOC: ER 18:33 → ICU 22:38 → OBSVTOIN 02-12 12:00
PROVIDERS: ADMIT Internal Medicine; ATTEND Internal Medicine
DX: J18.1 Lobar pneumonia, unspecified organism (principal); I82.433 Acute embolism and thrombosis of popliteal vein, bilateral; R07.89 Other chest pain; R06.02 Shortness of breath; I25.10 Atherosclerotic heart disease of native coronary artery without angina pectoris; F32.89 Other specified depressive episodes; I10 Essential (primary) hypertension; F41.8 Other specified anxiety disorders; I48.91 Unspecified atrial fibrillation; N39.0 Urinary tract infection, site not specified; R94.31 Abnormal electrocardiogram [ECG] [EKG]; R31.9 Hematuria, unspecified; F01.51 Vascular dementia, unspecified severity, with behavioral disturbance; Z85.46 Personal history of malignant neoplasm of prostate; B95.2 Enterococcus as the cause of diseases classified elsewhere; J90 Pleural effusion, not elsewhere classified; I51.7 Cardiomegaly
CPT/HCPCS: 36415; 71010; 71250; 80053; 80162; 81001; 82550; 82553; 84484; 85025; 87040; 87086; 87088; 87186; 93005; 94640; 96365; 96374; 99284; A4222; P9047; S0179; G0378; J0696; J1160; J1335; J2543; J3370; J7620

== ENCOUNTER → 2017-02-17 | Outpatient (CLI) | payer OTHER, MEDICARE ==
--- NOTE | 2017-02-18 07:24 | VAS ---
HISTORY: Bilateral lower extremity edema Study: Bilateral lower extremity arterial Doppler evaluate Comparison: None Technique: Multiple grayscale sonographic images were obtained. Color duplex Doppler evaluation was performed. Findings: On the right, flow was identified from the common femoral through the dorsalis pedis arteries. There was some calcific atherosclerotic change present. Waveforms were triphasic or biphasic throughout. There are no velocity spikes to suggest a focal greater than 50% stenosis. On the left, diffuse athe rosclerotic change was identified. Flow was identified from the common femoral through the dorsalis pedis artery. Waveforms were triphasic or biphasic with the exception of the trifurcation vessels wh ich demonstrated monophasic waveforms. There is a velocity spike between the proximal and mid superf icial femoral artery suggesting the possibility of a significant stenosis in this area. IMPRESSION: No sonographic evidence for significant atherosclerotic obstructive disease on the right Velocity spikes suggesting the possibility of a significant stenosis between the proximal and mid gonzales perficial femoral artery. Findings suggestive of atherosclerotic obstructive disease in the trifurcation vessels based on mono phasic Doppler waveforms. Recommendation: CTA if clinically indicated Reported By:
== END ==
LOC: RAD 13:34
PROVIDERS: ATTEND Internal Medicine
DX: R60.0 Localized edema (principal); R09.89 Other specified symptoms and signs involving the circulatory and respiratory systems
CPT/HCPCS: 93925

== ENCOUNTER → 2017-03-01 | Outpatient (CLI) | payer OTHER, MEDICARE ==
[2017-02-14 11:49] VITALS: BP 143/73
--- NOTE | 2017-03-01 11:24 | RAD ---
HISTORY: Abnormal lung findings Study: Chest one view Comparison: February 21, 2017 Findings: The heart is within normal limits in size. The mone are normal. The lungs are well inflated and free of acute alveolar infiltrates. No pleural effusions are identified. The bony thorax is unremarkable . IMPRESSION: Lungs clear Reported By:
== END ==
LOC: RAD 08:54
PROVIDERS: ATTEND Internal Medicine
DX: R91.8 Other nonspecific abnormal finding of lung field (principal)
CPT/HCPCS: 71010

== ENCOUNTER → 2017-03-07 | Outpatient (CLI) | payer OTHER, MEDICARE ==
[2017-02-14 11:49] VITALS: BP 143/73
--- NOTE | 2017-03-07 11:12 | RAD ---
HISTORY: No complaints. Study: PA and lateral chest. Comparison: Chest x-ray dated March 01, 2017. Findings: The trachea is midline. The cardiac silhouette is unremarkable. The lungs are clear without focal infiltrate or effusion. The bony thorax is unremarkable. IMPRESSION: 1. No acute cardiopulmonary disease. Reported By:
== END ==
LOC: RAD 08:52
PROVIDERS: ATTEND Internal Medicine
DX: I25.10 Atherosclerotic heart disease of native coronary artery without angina pectoris (principal); I48.91 Unspecified atrial fibrillation; I10 Essential (primary) hypertension; R91.8 Other nonspecific abnormal finding of lung field
CPT/HCPCS: 71020

== ENCOUNTER → 2017-03-14 | Outpatient (CLI) | payer OTHER, MEDICARE ==
[2017-02-14 11:49] VITALS: BP 143/73
--- NOTE | 2017-03-14 13:54 | RAD ---
HISTORY: Cough, weakness Study: Chest one view Comparison: March 07, 2017 Findings: The trachea is midline. The cardiac silhouette is unremarkable. The lungs are clear without focal infiltrate or effusion. The bony thorax is unremarkable. IMPRESSION: 1. No acute cardiopulmonary disease. Reported By:
== END ==
LOC: RAD 08:59
PROVIDERS: ATTEND Internal Medicine
DX: I25.10 Atherosclerotic heart disease of native coronary artery without angina pectoris (principal); I48.91 Unspecified atrial fibrillation; I10 Essential (primary) hypertension; R91.8 Other nonspecific abnormal finding of lung field
CPT/HCPCS: 71010

== ENCOUNTER 2017-05-01 19:30 | Emergency (ER) | payer OTHER, MEDICARE ==
[2017-05-01 19:44] VITALS: BP 107/66
--- NOTE | 2017-05-01 19:51 | DR.GENAD ---
HPI - PCP Primary Care Physician: ADRIANE - Complaint/Symptoms Chief Complaint:: SUSIE NURSE FROM [facility] CALLED WITH REPORT THAT PT HAD PULLED HIS FC OUT AND IS BLEEDING . - Source History Provided: Skilled Nursing - Mode of Arrival Mode of Arrival: Stretcher - Timing Onset of Chief Complaint: 05/01/17 PMH - PMH Past Medical History: Yes Past Medical History: Anxiety, Coronary Artery Disease, Dementia, Depression, GERD, Hypertension, Sleep Apnea Past Surgical History: Yes Surgical History: Ortho Surgery - Family History History of Family Medical Conditions: Yes Family Medical History: Coronary Artery Disease, Hypertension - Social History Do you use any recreational Drugs:: No Lives Where: Skilled Nursing - infectious screening In the last 2 months have you had wt loss of >10#?: NO Have you had fever, night sweats or hemotysis?: No Have you traveled outside the country in the last 6 months?: No Isolation: Standard ROS - Review of Systems Eyes: No Symptoms Reported ENTM: No Symptoms Reported Respiratoy: No Symptoms Reported Cardiovascular: No Symptoms Reported Gastrointestinal/Abdominal: No Symptoms Reported Genitourinary: Other (pulled out his urinary catheter) Neurological: No Symptoms Reported Musculoskeletal: No Symptoms Reported Integumentary: No Symptoms Reported Hematologic/Lymphatic: No Symptoms Reported Endocrine: No Symptoms Reported Psychiatric: No Symptoms Reported All Other Systems: Reviewed and Negative PE - Vital Signs Vitals: Temperature 97.6 F Pulse Rate 118 Respiratory Rate 18 Blood Pressure [Left Calf] 142/82 Blood Pressure [Right Calf] 178/86 Blood Pressure [Right Arm] 143/73 Blood Pressure [Left Arm] 120/77 Blood Pressure 107/66 O2 Sat by Pulse Oximetry 100 - General General Appearance: Alert - Head Head Exam: Normal Inspection, Atraumatic - ENT ENT Exam: Normal Exam External Ear Exam: Normal External Inspection TM/Canal Exam: Bilateral Normal Nose Exam: Normal Nose Exam Mouth Exam: Normal Inspection Throat Exam: Normal Inspection - Neck Neck Exam: Normal Inspection - Chest Chest Inspection: Normal Inspection - Respiratory Respiratory Exam: Normal Lung Sounds Bilat Respiratory Exam: Bilateral Clear to Auscultation - Cardiovascular Cardiovascular Exam: Regular Rate - Abdominal Exam Abdominal Exam: Normal Inspection Abdominal Tenderness: negative: RUQ, RLQ, LUQ, LLQ, Epigastrium, Suprapubic, Diffuse, Mild, Moderate, Severe, Other - Extremities Extremities Exam: Normal Inspection, Full ROM - Back Back Exam: Normal Inspection - Neurologic Neurological Exam: Alert - Psychiatric Psychiatric Exam: Anxious - Skin Skin Exam: Warm, Dry, Intact - Other Exam Other Exam: A #16FR urinary catheter was inserted. Obtained blood initially, eventually cleared Course - Reevaluation 1st: Improved - Diagnosis Discharge Problem: Chronic indwelling [place] catheter - Discharge Plan Condition: Stable - Follow ups/Referrals Follow ups/Referrals: Shayne Reyes [Primary Care Provider] - 3 days - Instructions
[2017-05-01 20:26] LABS: BILIRUBIN,URINE NEGATIVE (NEGATIVE); BLOOD/HEMOGLOBIN,URINE 5+ (NEGATIVE); GLUCOSE, URINE NEGATIVE (NEGATIVE); KETONES,URINE NEGATIVE (NEGATIVE); LEUKOCYTE ESTERASE ,URINE 2+ (NEGATIVE); NITRITES,URINE NEGATIVE (NEGATIVE); PROTEIN,URINE 2+ (NEGATIVE); UROBILINOGEN,URINE 1+ (NORMAL)
[2017-05-01 20:29] LABS: APPEARANCE,URINE CLOUDY (CLEAR); COLOR,URINE BLOODY (YELLOW)
[2017-05-01 20:38] LABS: RBC,URINE TNTC /HPF (NEGATIVE); SQUAMOUS EPITHELIAL CELL,UR RARE /HPF (NEGATIVE)
[2017-05-01 20:39] LABS: BACTERIA,URINE TRACE /HPF (NEGATIVE)
== END 2017-05-01 20:46 | disposition home or self-care (01) ==
LOC: ER 19:30
DX: Z46.82 Encounter for fitting and adjustment of non-vascular catheter (principal); B95.2 Enterococcus as the cause of diseases classified elsewhere
CPT/HCPCS: 51702; 81001; 87086; 87088; 87186; 99282

== ENCOUNTER 2017-05-19 12:07 | Emergency (ER) | payer OTHER, MEDICARE ==
[2017-05-19 12:15] VITALS: BMI 16.7
--- NOTE | 2017-05-19 12:31 | DR.GENAD ---
HPI - PCP Primary Care Physician: ADRIANE PALOMO - HPI Comment HPI Comment: Patient found not breathing while sitting in his wheel chair a the care home. He was given O2 and began breathing again . Pt has h/o hypersomnolence and sleep apnea per his . She had just left the NH when this episode occurred. She has instructed us to perform limited rescusitation efforts ( Sandra, nurse was in attendance). She denies any recent change in his condition. - Complaint/Symptoms Chief Complaint Doctors Comments: "Apneic episode per NH staff" Chief Complaint:: [facility] STAFF STATES " WE HAD TO CODE PT WHILE HE WAS IN THE WHEELCHAIR AND HIS FACE TURNED BLUE AND PT HAS A FAINT HR AND PT WAS TT BED AND MECHANICAL VENTILATION GIVEN AND PTS SATS WERE IN THE 80'S THEN AFTER BREATHES PTS HR HAS INCREASED AND HE ARROUSED SOME . - Nurses notes reviewed Nurses Notes Review: Yes - Source History Provided: Family Member, Significant Other, Other () - Mode of Arrival Mode of Arrival: Stretcher - Timing Onset of Chief Complaint: 05/19/17 Came on: Suddenly (one episode) - Duration Duration: Unknown - Severity Severity: Mild PMH - PMH Past Medical History: Yes Past Medical History: Anxiety, Coronary Artery Disease, Dementia, Depression, GERD, Hypertension, Sleep Apnea Past Surgical History: Yes Surgical History: Ortho Surgery - Family History History of Family Medical Conditions: Yes Family Medical History: Coronary Artery Disease, Hypertension - Social History Does patient currently use any type of tobacco product: No Have you used tobacco products in the last 12 months: No Type of Tobacco Use: None Does any household member use tobacco: No Alcohol Use: None Do you use any recreational Drugs:: No Lives Where: [facility] - infectious screening In the last 2 months have you had wt loss of >10#?: NO Have you had fever, night sweats or hemotysis?: No Have you traveled outside the country in the last 6 months?: No Isolation: Standard ROS - Review of Systems Constitutional: No Symptoms Reported Eyes: No Symptoms Reported ENTM: No Symptoms Reported Respiratoy: No Symptoms Reported Cardiovascular: Other (a fib) Gastrointestinal/Abdominal: No Symptoms Reported Genitourinary: No Symptoms Reported Neurological: Other (dementia) Musculoskeletal: No Symptoms Reported Integumentary: No Symptoms Reported Hematologic/Lymphatic: No Symptoms Reported Endocrine: No Symptoms Reported Psychiatric: No Symptoms Reported All Other Systems: Reviewed and Negative PE - Vital Signs Vitals: Pulse Rate 79 Respiratory Rate 20 Blood Pressure [Left Calf] 142/82 Blood Pressure [Right Calf] 178/86 Blood Pressure [Right Arm] 143/73 Blood Pressure [Left Arm] 120/77 Blood Pressure 110/60 O2 Sat by Pulse Oximetry 100 - General General Appearance: In No Apparent Distress, Other (easily aroused by his mother ) - Head Head Exam: Normal Inspection, Atraumatic - Eyes Eye exam: Normal Appearance, PERRL - ENT ENT Exam: Normal Exam, Normal Oropharynx, Mucous Membranes Moist Nose Exam: Normal Nose Exam Mouth Exam: Normal Inspection Throat Exam: Normal Inspection - Neck Neck Exam: Normal Inspection, Full ROM, Trachea Midline - Chest Chest Inspection: Normal Inspection - Respiratory Respiratory Exam: Normal Lung Sounds Bilat Respiratory Exam: Bilateral Clear to Auscultation - Cardiovascular Cardiovascular Exam: Regular Rate, Irregular Rhythm, Normal Heart Sounds - Abdominal Exam Abdominal Exam: Normal Inspection - Back Back Exam: Normal Inspection - Neurologic Neurological Exam: Other (arousable) - Psychiatric Psychiatric Exam: Flat Affect - Skin Skin Exam: Warm, Dry, Intact, Normal Color MDM - Differential Diagnosis Differential Diagnosis: mucous plug, TIA, bronchospasm ROR - Labs Reviewed Result Diagrams: 05/19/17 12:28 05/19/17 12:28 Laboratory: WBC 9.9 X10^3/uL (3.6-10.0) 05/19/17 12:28 RBC 3.98 X10^6/uL (4.7-6.0) L 05/19/17 12:28 Hgb 11.4 g/dL (13.5-18.0) L 05/19/17 12:28 Hct 34.1 % (42.0-54.0) L 05/19/17 12:28 MCV 85.5 fL (80.0-100.0) 05/19/17 12:28 MCH 28.7 pg (27.0-34.0) 05/19/17 12:28 MCHC 33.5 g/dL (33.0-35.0) 05/19/17 12:28 RDW 15.6 % (11.6-16.5) 05/19/17 12:28 Plt Count 284 X10^3/uL (150.0-450.0) 05/19/17 12:28 MPV 7.7 fL (7.4-11.0) 05/19/17 12:28 Neut % 72.5 % (42.0-75.0) 05/19/17 12: Lymph % 15.9 % (21.0-51.0) L 05/19/17 12:28 [place] % 8.2 % (0.0-13.0) 05/19/17 12:28 Eos % 2.7 % (0.9-2.9) 05/19/17 12:28 Baso % 0.7 % (0.2-1.0) 05/19/17 12:28 Neut # 7.2 x10^3/uL (2.2-4.8) H 05/19/17 12: Lymph # 1.6 X10^3/uL (1.3-2.9) 05/19/17 12:28 [place] # 0.8 x10^3/uL (0.3-0.8) 05/19/17 12:28 Eos # 0.3 x10^3/uL (0.0-0.2) H 05/19/17 12:28 Baso # 0.1 X10^3/uL (0.0-0.1) 05/19/17 12:28 Absolute Nucleated RBC 0.0 /100WBC 05/19/17 12:28 INR Target Range - 05/19/17 12:28 INR 1.19 (0.8-1.3) 05/19/17 12:28 PTT 31.9 SECONDS (22.9-36.5) 05/19/17 12:28 PTT Comment - 05/19/17 12:28 Sodium 139 mmol/L (136-145) 05/19/17 12:28 Corrected Sodium TNP 05/19/17 12:28 Potassium 5.0 mmol/L (3.5-5.1) 05/19/17 12:28 Chloride 103 mmol/L (98-107) 05/19/17 12:28 Carbon Dioxide 31.0 mmol/L (21-32) 05/19/17 12:28 BUN 19 mg/dL (7-18) H 05/19/17 12:28 Creatinine 0.73 mg/dL (0.70-1.30) 05/19/17 12:28 Est GFR (MDRD) Af Amer > 60 (>60) 05/19/17 12:28 Est GFR (MDRD) Non-Af > 60 (>60) 05/19/17 12:28 Glucose 109 mg/dL (65-99) H 05/19/17 12:28 Calcium 8.7 mg/dL (8.5-10.1) 05/19/17 12:28 Corrected Calcium 9.7 mg/dL (8.5-10.1) 05/19/17 12:28 Magnesium 1.9 mg/dL (1.7-2.9) 05/19/17 12:28 Total Bilirubin 0.40 mg/dL (0.2-1.0) 05/19/17 12:28 AST 20 Units/L (15-37) 05/19/17 12:28 ALT 21 Units/L (12-78) 05/19/17 12:28 Alkaline Phosphatase 69 Units/L (46-116) 05/19/17 12:28 Creatine Kinase 78 Units/L (39-308) 05/19/17 12:28 CK-MB (CK-2) 2.7 ng/mL (0-4.0) 05/19/17 12:28 CK/CKMB % Calc 3.5 % (<4) 05/19/17 12:28 Troponin I < 0.02 ng/mL (0-1.5) 05/19/17 12:28 Total Protein 7.4 g/dL (6.4-8.2) 05/19/17 12:28 Albumin 2.7 g/dL (3.4-5.0) L 05/19/17 12:28 Globulin 4.7 g/dL (2.5-4.5) H 05/19/17 12:28 Albumin/Globulin Ratio 0.6 Ratio (1.1-2.1) L 05/19/17 12:28 - Diagnosis Discharge Problem: Apnea spell, Dehydration, mild - Discharge Plan Condition: Stable - Follow ups/Referrals Follow ups/Referrals: Shayne Reyes [Primary Care Provider] - 3 days - Instructions Instructions: Hypoxemia, Sleep Apnea, [id number]
[2017-05-19 12:40] LABS: BASOPHILS # (AUTO) 0.1 X10^3/uL (0.0-0.1); BASOPHILS % (AUTO) 0.7 % (0.2-1.0); EOSINOPHILS # (AUTO) 0.3 x10^3/uL (0.0-0.2); EOSINOPHILS % (AUTO) 2.7 % (0.9-2.9); HEMATOCRIT 34.1 % (42.0-54.0); HEMOGLOBIN 11.4 g/dL (13.5-18.0); LYMPHOCYTES # (AUTO) 1.6 X10^3/uL (1.3-2.9); LYMPHOCYTES % (AUTO) 15.9 % (21.0-51.0); MEAN CORPUSCULAR HEMOGLOBIN 28.7 pg (27.0-34.0); MEAN CORPUSCULAR HGB CONC 33.5 g/dL (33.0-35.0); MEAN CORPUSCULAR VOLUME 85.5 fL (80.0-100.0); MEAN PLATELET VOLUME 7.7 fL (7.4-11.0); MONOCYTES # (AUTO) 0.8 x10^3/uL (0.3-0.8); MONOCYTES % (AUTO) 8.2 % (0.0-13.0); NEUTROPHILS # (AUTO) 7.2 x10^3/uL (2.2-4.8); NEUTROPHILS % (AUTO) 72.5 % (42.0-75.0); PLATELET COUNT 284 X10^3/uL (150.0-450.0); RED BLOOD COUNT 3.98 X10^6/uL (4.7-6.0); RED CELL DISTRIBUTION WIDTH 15.6 % (11.6-16.5); WHITE BLOOD COUNT 9.9 X10^3/uL (3.6-10.0)
[2017-05-19 12:57] LABS: BLOOD UREA NITROGEN 19 mg/dL (7-18); CALCIUM 8.7 mg/dL (8.5-10.1); CHLORIDE 103 mmol/L (98-107); CREATININE 0.73 mg/dL (0.70-1.30); GLUCOSE 109 mg/dL (65-99); SODIUM 139 mmol/L (136-145); TROPONIN I < 0.02 ng/mL (0-1.5); eGFR BLACK RACES > 60 (>60); eGFR NON BLACK RACES > 60 (>60)
[2017-05-19 13:01] LABS: ALANINE AMINOTRANSFERASE 21 Units/L (12-78); ALBUMIN 2.7 g/dL (3.4-5.0); ALKALINE PHOSPHATASE 69 Units/L (46-116); ASPARTATE AMINO TRANSFERASE 20 Units/L (15-37); CKMB % 3.5 % (<4); COR CA(FOR HYPOALB) 9.7 mg/dL (8.5-10.1); CREATINE KINASE 78 Units/L (39-308); CREATINE KINASE MB 2.7 ng/mL (0-4.0); MAGNESIUM 1.9 mg/dL (1.7-2.9); TOTAL PROTEIN 7.4 g/dL (6.4-8.2)
--- NOTE | 2017-05-19 13:09 | RAD ---
Chest, one view Indication: Altered mental status Comparison: 03/21/2017 Findings: Patient is rotated to the right. Accounting for this, the cardiac silhouette size is within normal limits. Lungs are essentially clear without focal infiltrate or large effusion. The bony thor ax is unremarkable. Impression: No acute chest process. Reported By:
[2017-05-19] MEDS ORDERED: NS 500 ML IV 300 ML IV ONE (13:26)
[2017-05-19] MEDS ORDERED: NS 500 ML IV 500 ML IV ONE (13:30)
[2017-05-19 14:41] VITALS: BP 156/96
== END 2017-05-19 14:59 | disposition home or self-care (01) ==
LOC: ER 12:15
DX: R06.81 Apnea, not elsewhere classified (principal); E86.0 Dehydration; I10 Essential (primary) hypertension; Z79.01 Long term (current) use of anticoagulants; I25.10 Atherosclerotic heart disease of native coronary artery without angina pectoris; Z85.46 Personal history of malignant neoplasm of prostate
CPT/HCPCS: 36415; 71010; 80053; 82550; 82553; 83735; 84484; 85025; 85610; 85730; 93005; 93010; 96365; 96367; 99283; A4222

== ENCOUNTER 2017-12-06 12:25 | Observation (INO) | payer OTHER, MEDICARE ==
[2017-12-06] MEDS ORDERED: NS 1000 ML 500 ML IV ONE (12:41)
[2017-12-06] MEDS ORDERED: NS 1000 ML 1,000 ML ONE (12:42)
[2017-12-06 12:47] LABS: BASOPHILS # (AUTO) 0.1 X10^3/uL (0.0-0.1); EOSINOPHILS # (AUTO) 0.3 x10^3/uL (0.0-0.2); EOSINOPHILS % (AUTO) 2.8 % (0.9-2.9); HEMATOCRIT 35.4 % (42.0-54.0); HEMOGLOBIN 12.1 g/dL (13.5-18.0); LYMPHOCYTES # (AUTO) 3.7 X10^3/uL (1.3-2.9); LYMPHOCYTES % (AUTO) 34.2 % (21.0-51.0); MEAN CORPUSCULAR HEMOGLOBIN 30.9 pg (27.0-34.0); MEAN CORPUSCULAR HGB CONC 34.1 g/dL (33.0-35.0); MEAN CORPUSCULAR VOLUME 90.7 fL (80.0-100.0); MEAN PLATELET VOLUME 8.2 fL (7.4-11.0); MONOCYTES # (AUTO) 0.8 x10^3/uL (0.3-0.8); NEUTROPHILS # (AUTO) 5.9 x10^3/uL (2.2-4.8); PLATELET COUNT 320 X10^3/uL (150.0-450.0); RED BLOOD COUNT 3.91 X10^6/uL (4.7-6.0); RED CELL DISTRIBUTION WIDTH 14.4 % (11.6-16.5); WHITE BLOOD COUNT 10.8 X10^3/uL (3.6-10.0)
[2017-12-06 12:59] LABS: SERUM ACETONE NEGATIVE (NEGATIVE)
[2017-12-06 13:02] LABS: ALANINE AMINOTRANSFERASE 15 Units/L (12-78); ALBUMIN 3.3 g/dL (3.4-5.0); ALKALINE PHOSPHATASE 81 Units/L (46-116); ASPARTATE AMINO TRANSFERASE 14 Units/L (15-37); BLOOD UREA NITROGEN 17 mg/dL (7-18); CALCIUM 8.9 mg/dL (8.5-10.1); CARBON DIOXIDE 29.8 mmol/L (21-32); CHLORIDE 103 mmol/L (98-107); COR CA(FOR HYPOALB) 9.5 mg/dL (8.5-10.1); COR NA(FOR HYPERGLY) 141 mmol/L (136-145); CREATININE 0.86 mg/dL (0.70-1.30); SODIUM 140 mmol/L (136-145); TOTAL PROTEIN 7.8 g/dL (6.4-8.2); eGFR BLACK RACES > 60 (>60); eGFR NON BLACK RACES > 60 (>60)
[2017-12-06 13:04] LABS: ABG ALLEN TEST POS; ABG BASE EXCESS 2.1 mmol/L (-2.0-2.0); ABG HCO3 27.8 mmol/L (22-26)
[2017-12-06 13:10] LABS: CKMB % 2.4 % (<4); CREATINE KINASE 41 Units/L (39-308); DIGOXIN 1.53 ng/mL (0.9-2); TROPONIN I < 0.02 ng/mL (0-1.5)
--- NOTE | 2017-12-06 13:32 | RAD ---
Exam: Chest, frontal view History: 82-year-old male with altered mental status and hypertension Comparison: Previous chest radiograph from 05/19/2017 Findings: Heart size and pulmonary vasculature are normal. Lungs are clear with no infiltrate or sign ificant effusion on either side. IMPRESSION: No acute cardiopulmonary abnormality is seen on this exam. Reported By:
--- NOTE | 2017-12-06 13:40 | DR.AMS ---
HPI - Time Seen Time seen: 12:25 - PCP Primary Care Physician: ADRIANE - Complaint Chief Complaint:: JACOB CHENRN, FROM [facility] CALLS AND STATES PT. BECAME UNRESPONSVIE WHILE IN THE DINING SANCHES. SHE STATES PT'S O2 SAT WAS 81% AND ONCE O2 WAS APPLIED, O2 SAT INCREASED TO 95%. PT. WAS ALSO HYPOTENSIVE LOGISTICS COORDINATOR. UPON ARRIVAL TO ER, PT. IS UNRESPONSIVE. - Reviewed Nurses Notes Reviewed: Yes - Source History Provided: Longterm - Mode of Arrival Mode of Arrival: Stretcher - Timing Onset of Chief Complaint: 12/06/17 Symptom Onset: Known - Duration Duration: Since Onset - Quality Quality: Decreased Alertness - Severity Severity: Unresponsive - Context Recent: Medication Change (just started Seroquel yesterday) History Of: Dementia - Associated Signs and Symptoms Associated Signs and Symptoms: Decreased LOC, Unresponsiveness PMH - PMH Past Medical History: Yes Past Medical History: Anxiety, Coronary Artery Disease, Dementia, Depression, GERD, Hypertension, Sleep Apnea Past Surgical History: Yes Surgical History: Ortho Surgery Unable to Obtain Due To: Altered mental status, Dementia - Family History History of Family Medical Conditions: Yes Family Medical History: Coronary Artery Disease, Hypertension - Social History Does patient currently use any type of tobacco product: No Have you used tobacco products in the last 12 months: No Type of Tobacco Use: None Does any household member use tobacco: No Alcohol Use: None Do you use any recreational Drugs:: No Lives Where: Longterm - infectious screening In the last 2 months have you had wt loss of >10#?: NO Have you had fever, night sweats or hemotysis?: No Have you traveled outside the country in the last 6 months?: No Isolation: Standard ROS - Review of Systems Unable to Obtain Due To: Altered mental status PE - Vitals Vital Signs: Pulse Resp BP BP BP BP BP 12/06/17 12:26 64 16 95/58 05/19/17 14:30 156/96 156/96 12/22/16 08:00 178/86 12/21/16 20:00 120/77 12/20/16 07:52 142/82 Pulse Ox 12/06/17 12:26 99 05/19/17 14:30 12/22/16 08:00 12/21/16 20:00 12/20/16 07:52 - General Limitations: Altered Mental Status General Appearance: Obtunded - Head Head Exam: Normal Inspection, Atraumatic, Normocephalic Head Exam Physical: negative: Contusion, Hematoma, Raccoon Eyes, Hopper's Sign, Tenderness of Temporal Artery, CSF Rhinorrhea, CSF Otorrhea - Eyes Eye exam: Normal Appearance Pupils: Regular, Round: Bilateral - ENT ENT Exam: Normal Exam, Normal Oropharynx External Ear Exam: Normal External Inspection Nose Exam: Normal Nose Exam Mouth Exam: Normal Inspection Throat Exam: Normal Inspection - Neck Neck Exam: Trachea Midline - Chest Chest Inspection: Normal Inspection, Symmetric Chest Wall Rise. negative: Tenderness - Respiratory Respiratory Exam: Normal Lung Sounds Bilat Respiratory Exam: Bilateral Clear to Auscultation - Cardiovascular Cardiovascular Exam: Irregular Rhythm. negative: Systolic Murmur, Diastolic Murmur - Abdominal Exam Abdominal Exam: Normal Inspection, Normal Bowel Sounds, Soft. negative: Tenderness - Extremities Extremities Exam: Normal Inspection, Full ROM, Other (contractures both LE, chronic per ) - Neurological Neurological Exam: Other (obtunded on arrival, unable to test further) - Skin Skin Exam: Warm, Dry, Intact, Pallor ROR - Labs Reviewed Laboratory Results Reviewed?: Yes (UA pending, lactic normal, ABG normal, cardiacs normal) Result Diagrams: 12/06/17 12:35 12/06/17 12:35 Laboratory: WBC 10.8 X10^3/uL (3.6-10.0) H 12/06/17 12:35 RBC 3.91 X10^6/uL (4.7-6.0) L 12/06/17 12:35 Hgb 12.1 g/dL (13.5-18.0) L 12/06/17 12:35 Hct 35.4 % (42.0-54.0) L 12/06/17 12:35 MCV 90.7 fL (80.0-100.0) 12/06/17 12:35 MCH 30.9 pg (27.0-34.0) 12/06/17 12:35 MCHC 34.1 g/dL (33.0-35.0) 12/06/17 12:35 RDW 14.4 % (11.6-16.5) 12/06/17 12:35 Plt Count 320 X10^3/uL (150.0-450.0) 12/06/17 12:35 MPV 8.2 fL (7.4-11.0) 12/06/17 12:35 Neut % (Auto) 55.0 % (42.0-75.0) 12/06/17 12:35 Lymph % (Auto) 34.2 % (21.0-51.0) 12/06/17 12:35 [place] % (Auto) 7.0 % (0.0-13.0) 12/06/17 12:35 Eos % (Auto) 2.8 % (0.9-2.9) 12/06/17 12:35 Baso % (Auto) 1.0 % (0.2-1.0) 12/06/17 12:35 Neut # (Auto) 5.9 x10^3/uL (2.2-4.8) H 12/06/17 12:35 Lymph # (Auto) 3.7 X10^3/uL (1.3-2.9) H 12/06/17 12:35 [place] # (Auto) 0.8 x10^3/uL (0.3-0.8) 12/06/17 12:35 Eos # (Auto) 0.3 x10^3/uL (0.0-0.2) H 12/06/17 12:35 Baso # (Auto) 0.1 X10^3/uL (0.0-0.1) 12/06/17 12:35 Absolute Nucleated RBC 0.0 /100WBC 12/06/17 12:35 INR Target Range - 12/06/17 12:35 INR 1.08 (0.8-1.3) 12/06/17 12:35 Sample Site Rr 12/06/17 13:00 ABG pH 7.380 (7.35-7.45) 12/06/17 13:00 ABG pCO2 47.0 mmHg (35.0-45.0) H 12/06/17 13:00 ABG pO2 143.0 mmHg (80.0-100.0) H 12/06/17 13:00 ABG HCO3 27.8 mmol/L (22-26) H 12/06/17 13:00 ABG O2 Saturation 99.0 % (90-100) 12/06/17 13:00 ABG Base Excess 2.1 mmol/L (-2.0-2.0) H 12/06/17 13:00 Chinedu Test Pos 12/06/17 13:00 A-a Gradient -2.0 mmHg 12/06/17 13:00 FiO2 28.000 12/06/17 13:00 Blood Gas Comments Pt sandra well. cdn 12/06/17 13:00 Sodium 140 mmol/L (136-145) 12/06/17 12:35 Corrected Sodium 141 mmol/L (136-145) 12/06/17 12:35 Potassium 4.1 mmol/L (3.5-5.1) 12/06/17 12:35 Chloride 103 mmol/L (98-107) 12/06/17 12:35 Carbon Dioxide 29.8 mmol/L (21-32) 12/06/17 12:35 BUN 17 mg/dL (7-18) 12/06/17 12:35 Creatinine 0.86 mg/dL (0.70-1.30) 12/06/17 12:35 Est GFR (MDRD) Af Amer > 60 (>60) 12/06/17 12:35 Est GFR (MDRD) Non-Af > 60 (>60) 12/06/17 12:35 Glucose 130 mg/dL (65-99) H 12/06/17 12:35 Lactic Acid 1.6 mmol/L (0.4-2.0) 12/06/17 12:55 Calcium 8.9 mg/dL (8.5-10.1) 12/06/17 12:35 Corrected Calcium 9.5 mg/dL (8.5-10.1) 12/06/17 12:35 Magnesium 2.0 mg/dL (1.7-2.9) 12/06/17 12:35 Total Bilirubin 0.50 mg/dL (0.2-1.0) 12/06/17 12:35 AST 14 Units/L (15-37) L 12/06/17 12:35 ALT 15 Units/L (12-78) 12/06/17 12:35 Alkaline Phosphatase 81 Units/L (46-116) 12/06/17 12:35 Creatine Kinase 41 Units/L (39-308) 12/06/17 12:35 CK-MB (CK-2) 1.0 ng/mL (0-4.0) 12/06/17 12:35 CK/CKMB % Calc 2.4 % (<4) 12/06/17 12:35 Troponin I < 0.02 ng/mL (0-1.5) 12/06/17 12:35 Total Protein 7.8 g/dL (6.4-8.2) 12/06/17 12:35 Albumin 3.3 g/dL (3.4-5.0) L 12/06/17 12:35 Globulin 4.5 g/dL (2.5-4.5) 12/06/17 12:35 Albumin/Globulin Ratio 0.7 Ratio (1.1-2.1) L 12/06/17 12:35 Digoxin 1.53 ng/mL (0.9-2) 12/06/17 12:35 Acetone, Semi-Quant Negative (NEGATIVE) 12/06/17 12:35 - XRAY XRAY Interpreted by: Radiologist XRAY Findings: CT head neg acute, CXR clear - EKG Rate: 60 Rhythm: Afib Block: None Hypertrophy: None ST: Normal - Diagnosis Discharge Problem: Altered mental status, unspecified - Discharge Plan Disposition: ADMITTED INPATIENT Condition: Stable - Follow ups/Referrals - Instructions
--- NOTE | 2017-12-06 13:45 | CT ---
HISTORY: Altered mental status and hypotension. Noncontrast head CT examination. Comparison: 12/18/2016. Technique: Multiple axial images of the brain were obtained from the skull base to the vertex without administra tion of IV contrast. Findings: There is moderate sulcal and cisternal prominence as well as atherosclerotic change in the proximal intracranial carotid and vertebral arteries, which is not out of proportion to the patient's stated age. There is diffuse CT density alteration seen in the periventricular white matter of the h igh and mid-convexity, which is likely in the setting of small vessel disease and out of proportion t o the patient's stated age. There is mild bilateral ex vacuo ventricular dilatation without evidence for hydrocephalus or herniation syndrome. No midline shift is evident. No acute intraparenchymal hemo rrhage or mass can be identified. No extra-axial fluid collections are seen. No alteration in the a ttenuation of the brain parenchyma can be identified to suggest acute or subacute ischemic change. T he extracranial structures are unremarkable. IMPRESSION: 1. No acute intracranial process, hemorrhage, or changes identified. 2. 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 Reported By:
[2017-12-06 15:47] LABS: BILIRUBIN,URINE NEGATIVE (NEGATIVE); BLOOD/HEMOGLOBIN,URINE 3+ (NEGATIVE); GLUCOSE, URINE NEGATIVE (NEGATIVE); KETONES,URINE NEGATIVE (NEGATIVE); LEUKOCYTE ESTERASE ,URINE 3+ (NEGATIVE); NITRITES,URINE NEGATIVE (NEGATIVE); PROTEIN,URINE 3+ (NEGATIVE); UROBILINOGEN,URINE NORMAL (NORMAL)
[2017-12-06 15:59] LABS: APPEARANCE,URINE CLOUDY (CLEAR); BACTERIA,URINE TRACE /HPF (NEGATIVE); COLOR,URINE YELLOW (YELLOW); SQUAMOUS EPITHELIAL CELL,UR NEGATIVE /HPF (NEGATIVE)
[2017-12-06] MEDS: DUONEB 0.5 MG/3 MG NEB SCH ×2 (16:31→20:49)
[2017-12-06 17:20] VITALS: BMI 16.7
[2017-12-06] MEDS: NS 1000 ML 1,000 ML IV SCH (20:18)
[2017-12-06] MEDS: ROCEPHIN VIAL 1 GM 1 GM in NS 100 ML IV + SPIKE MINIBAG* 100 ML IV SCH (20:18)
[2017-12-07] MEDS ORDERED: VALIUM INJ IVP PRN (02:21)
[2017-12-07] MEDS: MORPHINE SULFATE INJ 2 MG INJ IVP PRN ×2 (02:42→16:00)
[2017-12-07] MEDS: NS 1000 ML 1,000 ML IV SCH ×2 (06:04→20:18)
[2017-12-07 06:17] LABS: BASOPHILS # (AUTO) 0.1 X10^3/uL (0.0-0.1); BASOPHILS % (AUTO) 0.6 % (0.2-1.0); EOSINOPHILS # (AUTO) 0.2 x10^3/uL (0.0-0.2); EOSINOPHILS % (AUTO) 2.5 % (0.9-2.9); HEMATOCRIT 34.1 % (42.0-54.0); HEMOGLOBIN 11.8 g/dL (13.5-18.0); LYMPHOCYTES # (AUTO) 2.5 X10^3/uL (1.3-2.9); LYMPHOCYTES % (AUTO) 27.9 % (21.0-51.0); MEAN CORPUSCULAR HGB CONC 34.7 g/dL (33.0-35.0); MEAN CORPUSCULAR VOLUME 89.3 fL (80.0-100.0); MEAN PLATELET VOLUME 8.7 fL (7.4-11.0); MONOCYTES # (AUTO) 0.7 x10^3/uL (0.3-0.8); MONOCYTES % (AUTO) 7.9 % (0.0-13.0); NEUTROPHILS # (AUTO) 5.5 x10^3/uL (2.2-4.8); NEUTROPHILS % (AUTO) 61.1 % (42.0-75.0); PLATELET COUNT 264 X10^3/uL (150.0-450.0); RED BLOOD COUNT 3.82 X10^6/uL (4.7-6.0); RED CELL DISTRIBUTION WIDTH 14.4 % (11.6-16.5)
[2017-12-07 06:56] LABS: ALANINE AMINOTRANSFERASE 15 Units/L (12-78); ALBUMIN 3.1 g/dL (3.4-5.0); ALKALINE PHOSPHATASE 71 Units/L (46-116); ASPARTATE AMINO TRANSFERASE 14 Units/L (15-37); BLOOD UREA NITROGEN 14 mg/dL (7-18); CALCIUM 8.6 mg/dL (8.5-10.1); CARBON DIOXIDE 24.6 mmol/L (21-32); CHLORIDE 107 mmol/L (98-107); COR CA(FOR HYPOALB) 9.3 mg/dL (8.5-10.1); CREATININE 0.66 mg/dL (0.70-1.30); SODIUM 142 mmol/L (136-145); TOTAL PROTEIN 7.1 g/dL (6.4-8.2); eGFR BLACK RACES > 60 (>60); eGFR NON BLACK RACES > 60 (>60)
[2017-12-07] MEDS ORDERED: LANOXIN INJ IVP SCH (09:00)
[2017-12-07] MEDS: ROCEPHIN VIAL 1 GM 1 GM in NS 100 ML IV + SPIKE MINIBAG* 100 ML IV SCH (09:13)
[2017-12-07] MEDS: PROTONIX INJ 40 MG VIAL IVP SCH (09:13)
[2017-12-07] MEDS: DUONEB 0.5 MG/3 MG NEB SCH ×4 (09:31→20:24)
[2017-12-07] MEDS ORDERED: ZINC PO SCH (10:30)
[2017-12-07] MEDS ORDERED: [UNRECOGNIZED DRUG - OTHER] PO SCH (10:30)
[2017-12-07] MEDS ORDERED: AMINO ACIDS PO SCH (10:30)
[2017-12-07] MEDS ORDERED: PROTEIN HYDROLYS PO SCH (10:30)
[2017-12-07] MEDS ORDERED: ACIDOPH PARACASEI B LACTIS PO SCH (10:30)
[2017-12-07] MEDS: LANOXIN PO SCH (10:41)
[2017-12-07] MEDS ORDERED: ZINC SULFATE ONE (11:49)
[2017-12-07] MEDS: TAB-A-VITE PO SCH (12:45)
[2017-12-07] MEDS: VSL#3 PO SCH (12:45)
[2017-12-07] MEDS: HIPREX PO SCH ×2 (12:45→20:18)
[2017-12-07] MEDS: LOPRESSOR TAB 25 MG PO SCH (12:45)
--- NOTE | 2017-12-07 13:46 | DR.H&P ---
H&P - History & Physical for Day of: H&P Date: 12/07/17 - Chief Complaint Chief Complaint: ALTERED MENTAL STATUS - Allergies Allergies/Adverse Reactions: Allergies Allergy/AdvReac Type Severity Reaction Status Date / Time iodine Allergy Intermediate Verified 12/06/17 12:42 - History of Present Illness History of Present Illness: IS A 82 YEAR OLD PATIENT OF OURS WHO IS A RESIDENT OF [facility]. HE PRESENTED TO THE EMERGENCY ROOM WITH STAFF REPORTING THAT PATIENT WAS FOUND TO BE UNRESPONSIVE WITH OXYGEN SATURATIONS IN THE LOW 80S. STAFF REPORTS THAT OXYGEN WAS APPLIED AND OXYGEN SATURATIONS INCREASED TO 95%. ON ARRIVAL TO THE EMERGENCY DEPARTMENT, PATIENT WAS ONLY RESPONSIVE TO PAINFUL STIMULI. VITALS SIGNS WERE 97.5-64-16-99%-95/58. LABS WERE OBTAINED. ABNORMAL LAB VALUES INCLUDE THE FOLLOWING: WBC 10.8, RBC 3.91, HGB 12.1, HCT 35.4, GLUCOSE 130, AST 14, ALBUMIN 3.3. AN ABG WAS OBTAINED AND REVEALED PH: 7.380, PC02 47, P02 143, HC03 27.8, BASE EXCESS 2.1. URINALYSIS REVEALED WBC TOO NUMEROUS TO COUNT, RBC 5-10, LEUKOCYTES 3+, BACTERIA TRACE. BRAIN CT REVEALED NO ACUTE INTRACRANIAL PROCESS, HEMORRHAGE, OR CHANGES IDENTIFIED. ADVANCED BUT CHRONIC APPEARING WHITE MATTER MICROVASCULAR DISEASE. CHEST XRAY REVEALED NO ACUTE CARDIOPULMONARY ABNORMALITY SEEN. EKG: ATRIAL FIBRILLATION WITH HR 60. PATIENT WAS GIVEN A NORMAL SALINE BOLUS IN THE ER. HE WAS ADMITTED FOR FURTHER TREATMENT AND EVALUATION. HE WAS STARTED ON NORMAL SALINE AT 75ML/HR AND ROCEPHIN 1GM IV DAILY. PATIENT WAS RECENTLY STARTED ON SEROQUEL TWICE A DAY FOR AGITATION. WE WILL DISCONTINUE THIS THIS TIME, IT MAY BE CONTRIBUTING TO HIS DROWSINESS. OTHERWISE, WE PLAN TO FOLLOW UP WITH AM LABS AND CONTINUE TO MONITOR PATIENT. - Past Medical History Past Medical History: Anxiety, Coronary Artery Disease, Dementia, Depression, GERD, Hypertension, Sleep Apnea Additional Medical History: Atrial Fib, Muscle Weakness, Prostate Cancer, Cataracts, Urinary Tract Infections, BPH - Past Surgical History Surgical History: Ortho Surgery Additional Surgical History: Cardiac Ablation, Back Surgery - Family History Family Medical History: Hypertension - Social History Does patient currently use any type of tobacco product: No Have you used tobacco products in the last 12 months: No Type of Tobacco Use: None Does any household member use tobacco: No Alcohol Use: None Drug Use: None - Medications Home Medications: Amino Acids/Protein Hydrolys [Pro-Stat Max Liquid Packet] 1 oz PO BID 12/06/17 [ History Confirmed 12/06/17] Digoxin [LANOXIN TAB 0.25 MG *] 1 tab PO DAILY 12/06/17 [History Confirmed 12/06] Haloperidol Lactate Inj [HALDOL INJ 5 mg vial *] 2 mg IM Q4HR PRN 12/06/17 [ History Confirmed 12/06/17] Ipratropium/Albuterol Nebule [DUONEB 0.5 MG/3 MG NEBULE *] 1 dose INH QID PRN [History Confirmed 12/06/17] L.acidoph,Paracasei, B.lactis [Probiotic] 1 cap PO DAILY 12/06/17 [History Confirmed 12/06/17] Methenamine Hippurate [Hiprex] 1 tab PO BID 12/06/17 [History Confirmed 12/06/17 ] Metoprolol Tartrate [LOPRESSOR 25 MG *] 12.5 mg PO DAILY 12/06/17 [History Confirmed 12/06/17] Multiple Vitamin (Adult) [MULTIVITAMIN ADULT TAB *] 1 tab PO DAILY 12/06/17 [ History Confirmed 12/06/17] Quetiapine Fumarate [Seroquel] 1 tab PO BID 12/06/17 [History Confirmed 12/06/17 ] [place] Tonic 30 ml [Eldertonic + Wine 1:1 (pharm cmpd) *] 30 ml PO DAILY [History Confirmed 12/06/17] Zinc 1 tab PO DAILY 12/06/17 [History Confirmed 12/06/17] - Review of Systems Constitutional: No Symptoms Reported Eyes: No Symptoms Reported ENT: No Symptoms Reported Respiratory: No Symptoms Reported Cardiovascular: No Symptoms Reported Gastrointestinal: No Symptoms Reported Genitourinary: No Symptoms Reported Musculoskeletal: No Symptoms Reported Skin: No Symptoms Reported Neurological: See HPI, Other (ONLY RESPONSIVE TO PAIN ) - Physical Exam Vital Signs: Temperature 97 F Pulse Rate [Left Brachial] 91 Pulse Rate [Right Brachial] 90 Pulse Rate 90 Respiratory Rate 20 Blood Pressure [Left Calf] 142/82 Blood Pressure [Right Calf] 178/86 Blood Pressure [Right Arm] 117/64 Blood Pressure [Left Arm] 104/71 Blood Pressure 95/58 O2 Sat by Pulse Oximetry 96 Oriented: Unable to test Eyes: Normal Ear: Normal Nose: Normal Throat: Normal Respiratory: Clear Throughout Cardiovascular: Normal : Normal Auscultation: Bowel Sounds: Normal Palpation: Normal Tenderness: Suprapubic. negative: Rebound, Guarding, Rigidity Skin: Normal Musculoskeletal: Normal Psychiatric: Other (ALTERED MENTAL STATUS, ONLY RESPONSIVE TO PAIN ) Mood Description: Calm Affect: Normal Speech Pattern: Clear, Unclear - Assessment/Plan (1) UTI (urinary tract infection) Qualifiers: Urinary tract infection type: site unspecified Hematuria presence: with hematuria Qualified Code(s): N39.0 - Urinary tract infection, site not specified; R31.9 - Hematuria, unspecified Status: Acute Plan: ROCEPHIN 1GM IV DAILY, CONTINUE TO MONITOR (2) Altered mental status, unspecified Qualifiers: Altered mental status type: transient alteration of awareness Qualified Code(s): R40.4 - Transient alteration of awareness Status: Acute Plan: TREAT UTI, DISCONTINUE SEROQUEL, CONTINUE TO MONITOR
[2017-12-07] MEDS ORDERED: ELDERTONIC + WINE PO SCH (21:00)
[2017-12-08] MEDS: MORPHINE SULFATE INJ 2 MG INJ IVP PRN (00:38)
[2017-12-08] MEDS: NS 1000 ML 1,000 ML IV SCH (00:39)
[2017-12-08 06:13] LABS: BASOPHILS # (AUTO) 0.1 X10^3/uL (0.0-0.1); BASOPHILS % (AUTO) 0.7 % (0.2-1.0); EOSINOPHILS # (AUTO) 0.4 x10^3/uL (0.0-0.2); EOSINOPHILS % (AUTO) 2.4 % (0.9-2.9); HEMATOCRIT 36.8 % (42.0-54.0); HEMOGLOBIN 12.4 g/dL (13.5-18.0); MEAN CORPUSCULAR HEMOGLOBIN 30.4 pg (27.0-34.0); MEAN CORPUSCULAR HGB CONC 33.7 g/dL (33.0-35.0); MEAN CORPUSCULAR VOLUME 90.2 fL (80.0-100.0); MEAN PLATELET VOLUME 9.8 fL (7.4-11.0); MONOCYTES # (AUTO) 0.9 x10^3/uL (0.3-0.8); MONOCYTES % (AUTO) 6.3 % (0.0-13.0); NEUTROPHILS # (AUTO) 10.4 x10^3/uL (2.2-4.8); NEUTROPHILS % (AUTO) 70.6 % (42.0-75.0); PLATELET COUNT 210 X10^3/uL (150.0-450.0); RED BLOOD COUNT 4.08 X10^6/uL (4.7-6.0); RED CELL DISTRIBUTION WIDTH 14.2 % (11.6-16.5); WHITE BLOOD COUNT 14.8 X10^3/uL (3.6-10.0)
[2017-12-08 06:21] LABS: ALANINE AMINOTRANSFERASE 13 Units/L (12-78); ALBUMIN 3.2 g/dL (3.4-5.0); ALKALINE PHOSPHATASE 76 Units/L (46-116); ASPARTATE AMINO TRANSFERASE 21 Units/L (15-37); BLOOD UREA NITROGEN 10 mg/dL (7-18); CALCIUM 8.3 mg/dL (8.5-10.1); CARBON DIOXIDE 25.8 mmol/L (21-32); CHLORIDE 105 mmol/L (98-107); COR CA(FOR HYPOALB) 8.9 mg/dL (8.5-10.1); CREATININE 0.69 mg/dL (0.70-1.30); SODIUM 141 mmol/L (136-145); TOTAL PROTEIN 7.6 g/dL (6.4-8.2); eGFR BLACK RACES > 60 (>60); eGFR NON BLACK RACES > 60 (>60)
[2017-12-08 06:43] LABS: PLATELET MORPHOLOGY COMMENT NORMAL (NORMAL)
[2017-12-08 07:49] VITALS: BP 157/85
[2017-12-08] MEDS ORDERED: LOPRESSOR INJ 5 MG AMP IVP ONE (08:06)
[2017-12-08] MEDS ORDERED: LANOXIN INJ ONE (08:08)
[2017-12-08] MEDS ORDERED: LOPRESSOR INJ 5 MG AMP ONE (08:08)
[2017-12-08] MEDS: HIPREX PO SCH (08:15)
[2017-12-08] MEDS: LANOXIN PO SCH (08:16)
[2017-12-08] MEDS: LOPRESSOR TAB 25 MG PO SCH (08:17)
[2017-12-08] MEDS: VSL#3 PO SCH (08:18)
[2017-12-08] MEDS: TAB-A-VITE PO SCH (08:18)
[2017-12-08] MEDS: PROTONIX INJ 40 MG VIAL IVP SCH (08:28)
[2017-12-08] MEDS: ROCEPHIN VIAL 1 GM 1 GM in NS 100 ML IV + SPIKE MINIBAG* 100 ML IV SCH (08:28)
--- NOTE | 2017-12-08 08:30 | PCM.PROG ---
Progress Note - Progress Note for Day of Date: 12/07/17 - Subjective Subjective: IS BEING TREATED FOR A URINARY TRACT INFECTION AND ALTERED MENTAL STATUS. TODAY, HE IS LYING IN BED WITH EYES OPEN ON MORNING ROUNDS. PATIENTS SPOUSE IS AT BEDSIDE. SPOUSE AND STAFF REPORT THAT PATIENT CONTINUES WITH CONFUSION AND ALTERED MENTAL STATUS THROUGHOUT THE NIGHT. THEY ALSO REPORT THAT HE IS HAVING SOME HALLUCINATIONS. HE DENIES PAIN AT THIS TIME. ON EXAMINATION, HEART IS REGULAR IN RATE AND RHYTHM. BILATERAL LUNGS ARE CLEAR TO AUSCULTATION. ABDOMEN IS ROUND, SOFT, AND NON-TENDER WITH NORMAL BOWEL SOUNDS NOTED IN ALL QUADRANTS. A CABRERA CATHETER IS NOTED TO BEDSIDE DRAINAGE WITH SEDIMENT IN BAG. THERE IS NORMAL RANGE OF MOTION NOTED TO ALL EXTREMITIES. HIS VITALS THIS MORNING ARE 97.0-91-20-96%-104/71. LABS WERE OBTAINED. ABNORMAL LAB VALUES INCLUDE THE FOLLOWING: RBC 3.82, HGB 11.8, HCT 34.1, CREATININE 0.69 , CALCIUM 8.3, ALBUMIN 3.2. A URINE CULTURE IS PENDING. TODAY, WE WILL CONTINUE WITH IV ANTIBIOTICS FOR UTI AND CONTINUE TO HOLD SEROQUEL. SPEECH THERAPY WILL EVALUATE LATER TODAY. OTHERWISE, WE PLAN TO FOLLOW UP WITH AM LABS AND CONTINUE TO MONITOR PATIENT. - Past Medical Family Social History Past Med/Fam/Surg Hx: No changes since H&P Allergies: Allergies iodine Allergy (Intermediate, Verified 12/06/17 12:42) - Review of Systems ROS: No change since H&P - Vital Signs and I&O's Vital Signs: Temperature 97.7 F Pulse Rate [Left Brachial] 112 Pulse Rate [Right Brachial] 90 Pulse Rate 165 Respiratory Rate 20 Blood Pressure [Left Calf] 142/82 Blood Pressure [Right Calf] 178/86 Blood Pressure [Right Arm] 117/64 Blood Pressure [Left Arm] 157/85 Blood Pressure 157/85 O2 Sat by Pulse Oximetry 96 Intake and Output: Intake & Output 12/05/17 12/06/17 12/07/17 12/08/17 11:59 11:59 11:59 11:59 Intake Total 867 1877 Output Total 950 125 Balance -83 1752 - Physical Exam Oriented: Person Eyes: Normal Ear: Normal Nose: Normal Throat: Normal Respiratory: Normal Cardiovascular: Normal : Normal Auscultation: Bowel Sounds: Normal Palpation: Normal Tenderness: Normal. negative: Rebound, Guarding, Rigidity Skin: Normal Musculoskeletal: Normal Psychiatric: Other (ALTERED MENTAL STATUS, CONFUSION ) Mood Description: Calm Affect: Normal Speech Pattern: Clear - Laboratory and Diagnostics Result Diagrams: 12/08/17 05:25 12/08/17 05:25 Labs: 12/06/17 15:37 Urine,Catheterized Urine Culture - Preliminary Pseudomonas Aeruginosa Laboratory WBC 14.8 X10^3/uL (3.6-10.0) H 12/08/17 05:25 RBC 4.08 X10^6/uL (4.7-6.0) L 12/08/17 05:25 Hgb 12.4 g/dL (13.5-18.0) L 12/08/17 05:25 Hct 36.8 % (42.0-54.0) L 12/08/17 05:25 MCV 90.2 fL (80.0-100.0) 12/08/17 05:25 MCH 30.4 pg (27.0-34.0) 12/08/17 05:25 MCHC 33.7 g/dL (33.0-35.0) 12/08/17 05:25 RDW 14.2 % (11.6-16.5) 12/08/17 05:25 Plt Count 210 X10^3/uL (150.0-450.0) 12/08/17 05:25 Plt Count Comment Adequate (ADEQUATE) 12/08/17 05:25 MPV 9.8 fL (7.4-11.0) 12/08/17 05:25 Neut % (Auto) 70.6 % (42.0-75.0) 12/08/17 05:25 Lymph % (Auto) 20.0 % (21.0-51.0) L 12/08/17 05:25 [place] % (Auto) 6.3 % (0.0-13.0) 12/08/17 05:25 Eos % (Auto) 2.4 % (0.9-2.9) 12/08/17 05:25 Baso % (Auto) 0.7 % (0.2-1.0) 12/08/17 05:25 Neut # (Auto) 10.4 x10^3/uL (2.2-4.8) H 12/08/17 05:25 Lymph # (Auto) 3.0 X10^3/uL (1.3-2.9) H 12/08/17 05:25 [place] # (Auto) 0.9 x10^3/uL (0.3-0.8) H 12/08/17 05:25 Eos # (Auto) 0.4 x10^3/uL (0.0-0.2) H 12/08/17 05:25 Baso # (Auto) 0.1 X10^3/uL (0.0-0.1) 12/08/17 05:25 Absolute Nucleated RBC 0.1 /100WBC 12/08/17 05:25 Plt Clumps, EDTA Rare 12/08/17 05:25 Plt Morphology Comment Normal (NORMAL) 12/08/17 05:25 RBC Morphology Normal (NORMAL) 12/08/17 05:25 INR Target Range - 12/06/17 12:35 INR 1.08 (0.8-1.3) 12/06/17 12:35 Sample Site Rr 12/06/17 13:00 ABG pH 7.380 (7.35-7.45) 12/06/17 13:00 ABG pCO2 47.0 mmHg (35.0-45.0) H 12/06/17 13:00 ABG pO2 143.0 mmHg (80.0-100.0) H 12/06/17 13:00 ABG HCO3 27.8 mmol/L (22-26) H 12/06/17 13:00 ABG O2 Saturation 99.0 % (90-100) 12/06/17 13:00 ABG Base Excess 2.1 mmol/L (-2.0-2.0) H 12/06/17 13:00 [place] Test Pos 12/06/17 13:00 A-a Gradient -2.0 mmHg 12/06/17 13:00 FiO2 28.000 12/06/17 13:00 Blood Gas Comments Pt sandra well. cdn 12/06/17 13:00 Sodium 141 mmol/L (136-145) 12/08/17 05:25 Corrected Sodium TNP 12/08/17 05:25 Potassium 4.7 mmol/L (3.5-5.1) 12/08/17 05:25 Chloride 105 mmol/L (98-107) 12/08/17 05:25 Carbon Dioxide 25.8 mmol/L (21-32) 12/08/17 05:25 BUN 10 mg/dL (7-18) 12/08/17 05:25 Creatinine 0.69 mg/dL (0.70-1.30) L 12/08/17 05:25 Est GFR (MDRD) Af Amer > 60 (>60) 12/08/17 05:25 Est GFR (MDRD) Non-Af > 60 (>60) 12/08/17 05:25 Glucose 74 mg/dL (65-99) 12/08/17 05:25 Lactic Acid 1.6 mmol/L (0.4-2.0) 12/06/17 12:55 Calcium 8.3 mg/dL (8.5-10.1) L 12/08/17 05:25 Corrected Calcium 8.9 mg/dL (8.5-10.1) 12/08/17 05:25 Magnesium 2.0 mg/dL (1.7-2.9) 12/06/17 12:35 Total Bilirubin 0.50 mg/dL (0.2-1.0) 12/08/17 05:25 AST 21 Units/L (15-37) 12/08/17 05:25 ALT 13 Units/L (12-78) 12/08/17 05:25 Alkaline Phosphatase 76 Units/L (46-116) 12/08/17 05:25 Creatine Kinase 41 Units/L (39-308) 12/06/17 12:35 CK-MB (CK-2) 1.0 ng/mL (0-4.0) 12/06/17 12:35 CK/CKMB % Calc 2.4 % (<4) 12/06/17 12:35 Troponin I < 0.02 ng/mL (0-1.5) 12/06/17 12:35 Total Protein 7.6 g/dL (6.4-8.2) 12/08/17 05:25 Albumin 3.2 g/dL (3.4-5.0) L 12/08/17 05:25 Globulin 4.4 g/dL (2.5-4.5) 12/08/17 05:25 Albumin/Globulin Ratio 0.7 Ratio (1.1-2.1) L 12/08/17 05:25 Specimen Type Catherized urine 12/06/17 15:37 Urine Color Yellow (YELLOW) 12/06/17 15:37 Urine Appearance Cloudy (CLEAR) 12/06/17 15:37 Urine pH 7.0 (5.0 - 8.0) 12/06/17 15:37 Ur Specific [place] 1.015 (1.000-1.030) 12/06/17 15:37 Urine Protein 3+ (NEGATIVE) 12/06/17 15:37 Urine Glucose (UA) Negative (NEGATIVE) 12/06/17 15:37 Urine Ketones Negative (NEGATIVE) 12/06/17 15:37 Urine Occult Blood 3+ (NEGATIVE) 12/06/17 15:37 Urine Nitrite Negative (NEGATIVE) 12/06/17 15:37 Urine Bilirubin Negative (NEGATIVE) 12/06/17 15:37 Urine Urobilinogen Normal (NORMAL) 12/06/17 15:37 Ur Leukocyte Esterase 3+ (NEGATIVE) 12/06/17 15:37 Urine RBC 5-10 /HPF (NONE SEEN) 12/06/17 15:37 Urine WBC Tntc /HPF (NONE SEEN) 12/06/17 15:37 Ur Squamous Epith Cells Negative /HPF (NEGATIVE) 12/06/17 15:37 Urine Bacteria Trace /HPF (NEGATIVE) 12/06/17 15:37 Ur Culture Indicated? Yes/culture set up 12/06/17 15:37 Digoxin 1.53 ng/mL (0.9-2) 12/06/17 12:35 Urine Opiates Screen Negative (NEG=<300) 12/06/17 15:37 Urine Methadone Screen Negative (NEG=<300) 12/06/17 15:37 Ur Barbiturates Screen Negative (NEG=<200) 12/06/17 15:37 Ur Phencyclidine Scrn Negative (NEG=<25) 12/06/17 15:37 Ur Amphetamines Screen Negative (NEG=<1000) 12/06/17 15:37 U Benzodiazepines Scrn Negative (NEG=<200) 12/06/17 15:37 Urine Cocaine Screen Negative (NEG=<300) 12/06/17 15:37 U Marijuana (THC) Screen Negative (NEG=<50) 12/06/17 15:37 Acetone, Semi-Quant Negative (NEGATIVE) 12/06/17 12:35 - Plan (1) UTI (urinary tract infection) Status: Acute Qualifiers: Urinary tract infection type: site unspecified Hematuria presence: with hematuria Qualified Code(s): N39.0 - Urinary tract infection, site not specified; R31.9 - Hematuria, unspecified Plan: ROCEPHIN 1GM IV DAILY, CONTINUE TO MONITOR (2) Altered mental status, unspecified Status: Acute Qualifiers: Altered mental status type: transient alteration of awareness Qualified Code(s): R40.4 - Transient alteration of awareness Plan: TREAT UTI, DISCONTINUE SEROQUEL, CONTINUE TO MONITOR
[2017-12-08] MEDS ORDERED: ZINC SULFATE PO SCH (09:00)
[2017-12-08] MEDS ORDERED: LANOXIN INJ IVP SCH (09:00)
[2017-12-08] MEDS: DUONEB 0.5 MG/3 MG NEB SCH (09:26)
== END 2017-12-08 11:22 ==
LOC: ER 12:28 → MED/SURG 14:15
PROVIDERS: ADMIT Internal Medicine; ATTEND Internal Medicine
DX: N39.0 Urinary tract infection, site not specified (principal); R40.4 Transient alteration of awareness; I95.89 Other hypotension; B96.29 Other Escherichia coli [E. coli] as the cause of diseases classified elsewhere; B96.5 Pseudomonas (aeruginosa) (mallei) (pseudomallei) as the cause of diseases classified elsewhere; D64.89 Other specified anemias; E11.65 Type 2 diabetes mellitus with hyperglycemia; R13.11 Dysphagia, oral phase; R94.31 Abnormal electrocardiogram [ECG] [EKG]; R31.9 Hematuria, unspecified
CPT/HCPCS: 36415; 36600; 70450; 71045; 80053; 80162; 80307; 81001; 82009; 82550; 82553; 82803; 83605; 83735; 84484; 85025; 85610; 87040; 87086; 87088; 87186; 93005; 94640; 94760; 96365; 96367; 99284; A4222; C9113; G8996; G8997; G0378; G0434; J0696; J1160; J2270; J3360; J3490; J7620

== ENCOUNTER 2018-06-05 22:50 | Inpatient (IN) ==
[2018-06-05] MEDS ORDERED: NS 1000 ML 1,000 ML IV ONE (23:10)
[2018-06-05] MEDS ORDERED: NS 1000 ML 1,000 ML ONE (23:17)
[2018-06-05 23:38] LABS: BASOPHILS # (AUTO) 0.1 X10^3/uL (0.0-0.1)
[2018-06-05 23:43] LABS: BASOPHILS % (AUTO) 0.6 % (0.2-1.0); EOSINOPHILS % (AUTO) 0.1 % (0.9-2.9); HEMOGLOBIN 15.9 g/dL (13.5-18.0); LYMPHOCYTES # (AUTO) 2.2 X10^3/uL (1.3-2.9); LYMPHOCYTES % (AUTO) 10.1 % (21.0-51.0); MEAN CORPUSCULAR HEMOGLOBIN 30.6 pg (27.0-34.0); MEAN CORPUSCULAR HGB CONC 33.2 g/dL (33.0-35.0); MEAN CORPUSCULAR VOLUME 92.1 fL (80.0-100.0); MEAN PLATELET VOLUME 8.7 fL (7.4-11.0); MONOCYTES # (AUTO) 1.7 x10^3/uL (0.3-0.8); NEUTROPHILS # (AUTO) 17.4 x10^3/uL (2.2-4.8); NEUTROPHILS % (AUTO) 81.2 % (42.0-75.0); PLATELET COUNT 388 X10^3/uL (150.0-450.0); RED BLOOD COUNT 5.21 X10^6/uL (4.7-6.0); RED CELL DISTRIBUTION WIDTH 14.8 % (11.6-16.5); WHITE BLOOD COUNT 21.5 X10^3/uL (3.6-10.0)
--- NOTE | 2018-06-05 23:52 | DR.AMS ---
HPI Time Seen Time Seen by Provider: 06/05/18 23:09 PCP Primary Care Physician: sheela Complaint Cheif Complaint Doctors Comments: [facility] and blood in [facility]. Patient with gray catheter. Chief Complaint:: blood in urine, altered mental status Source History Provided: Significant Other and Custodial Mode of Arrival Mode of Arrival: Ambulatory Timing Onset of Chief Complaint: 06/05/18 PMH PMH Past Medical History: Yes Past Medical History: Anxiety, Coronary Artery Disease, Dementia, Depression, GERD, Hypertension and Sleep Apnea Past Surgical History: Yes Surgical History: Ortho Surgery Family History History of Family Medical Conditions: Yes Family Medical History: Hypertension Social History Alcohol Use: None Do you use any recreational Drugs:: No Lives With: Sitter and Other Lives Where: Custodial infectious screening In the last 2 months have you had wt loss of >10#?: NO Have you had fever, night sweats or hemotysis?: No Have you traveled outside the country in the last 6 months?: No Isolation: Standard PE Vitals Vital Signs: Temp Pulse Resp BP BP BP BP 06/05/18 22:54 98.3 F 122 H 24 143/90 02/23/18 10:00 114/71 12/08/17 07:48 157/85 12/07/17 04:00 117/64 12/22/16 08:00 12/20/16 07:52 142/82 BP Pulse Ox 06/05/18 22:54 98 02/23/18 10:00 12/08/17 07:48 12/07/17 04:00 12/22/16 08:00 178/86 12/20/16 07:52 General Limitations: Altered Mental Status General Appearance: In No Apparent Distress and Obtunded Head Head Exam: Normal Inspection, Atraumatic and Normocephalic Eyes Eye exam: Normal Appearance and PERRL Pupils: Regular, Round: Bilateral ENT ENT Exam: Normal Exam, Mucous Membranes Dry and TM's Normal Bilaterally External Ear Exam: Normal External Inspection TM/Canal Exam: Bilateral: Normal Nose Exam: Normal Nose Exam Mouth Exam: Normal Inspection Throat Exam: Normal Inspection Neck Neck Exam: Normal Inspection and Full ROM Chest Chest Inspection: Normal Inspection and Symmetric Chest Wall Rise Respiratory Respiratory Exam: Normal Lung Sounds Bilat; negative Accessory Muscle Use Respiratory Exam: Bilateral: Clear to Auscultation Cardiovascular Cardiovascular Exam: Regular Rate Abdominal Exam Abdominal Exam: Normal Inspection and Hypoactive Bowel Sounds Abdominal Tenderness: negative RUQ, RLQ, LUQ, LLQ and Epigastrium Extremities Extremities Exam: Normal Inspection Back Back Exam: Normal Inspection and Full ROM Neurological Neurological Exam: Alert COURSE Treatment Treatment: NS, CT Brain, Reevaluation 1st: Improved (Patient responsive to spouce) ROR Labs Reviewed Laboratory Results Reviewed?: Yes Result Diagrams: 06/05/18 23:23 06/05/18 23:23 Laboratory: WBC 21.5 X10^3/uL (3.6-10.0) H 06/05/18 23:23 RBC 5.21 X10^6/uL (4.7-6.0) 06/05/18 23:23 Hgb 15.9 g/dL (13.5-18.0) 06/05/18 23:23 Hct 48.0 % (42.0-54.0) 06/05/18 23:23 MCV 92.1 fL (80.0-100.0) 06/05/18 23:23 MCH 30.6 pg (27.0-34.0) 06/05/18 23:23 MCHC 33.2 g/dL (33.0-35.0) 06/05/18 23:23 RDW 14.8 % (11.6-16.5) 06/05/18 23:23 Plt Count 388 X10^3/uL (150.0-450.0) 06/05/18 23:23 Plt Count Comment Adequate (ADEQUATE) 06/05/18 23:23 MPV 8.7 fL (7.4-11.0) 06/05/18 23:23 Neut % (Auto) 81.2 % (42.0-75.0) H 06/05/18 23:23 Lymph % (Auto) 10.1 % (21.0-51.0) L 06/05/18 23:23 [place] % (Auto) 8.0 % (0.0-13.0) 06/05/18 23:23 Eos % (Auto) 0.1 % (0.9-2.9) L 06/05/18 23:23 Baso % (Auto) 0.6 % (0.2-1.0) 06/05/18 23:23 Neut # (Auto) 17.4 x10^3/uL (2.2-4.8) H 06/05/18 23:23 Lymph # (Auto) 2.2 X10^3/uL (1.3-2.9) 06/05/18 23:23 [place] # (Auto) 1.7 x10^3/uL (0.3-0.8) H 06/05/18 23:23 Eos # (Auto) 0.0 x10^3/uL (0.0-0.2) 06/05/18 23:23 Baso # (Auto) 0.1 X10^3/uL (0.0-0.1) 06/05/18 23:23 Absolute Nucleated RBC 0.1 /100WBC 06/05/18 23:23 Total Counted 100 06/05/18 23:23 Neutrophils % (Manual) 78 % (39-76) H 06/05/18 23:23 Lymphocytes % (Manual) 14 % (13-43) 06/05/18 23:23 Monocytes % (Manual) 8 % (4-9) 06/05/18 23:23 Plt Morphology Comment Normal (NORMAL) 06/05/18 23:23 RBC Morphology Normal (NORMAL) 06/05/18 23:23 Sodium 145 mmol/L (136-145) 06/05/18 23:23 Corrected Sodium 146 mmol/L (136-145) H 06/05/18 23:23 Potassium 5.3 mmol/L (3.5-5.1) H 06/05/18 23:23 Chloride 111 mmol/L (98-107) H 06/05/18 23:23 Carbon Dioxide 19.9 mmol/L (21-32) L 06/05/18 23:23 BUN 71 mg/dL (7-18) H 06/05/18 23:23 Creatinine 1.24 mg/dL (0.70-1.30) 06/05/18 23:23 Est GFR (MDRD) Af Amer > 60 (>60) 06/05/18 23:23 Est GFR (MDRD) Non-Af 59 (>60) 06/05/18 23:23 Glucose 150 mg/dL (65-99) H 06/05/18 23:23 Calcium 9.8 mg/dL (8.5-10.1) 06/05/18 23:23 Corrected Calcium TNP 06/05/18 23:23 Total Bilirubin 0.40 mg/dL (0.2-1.0) 06/05/18 23:23 AST 19 Units/L (15-37) 06/05/18 23:23 ALT 25 Units/L (12-78) 06/05/18 23:23 Alkaline Phosphatase 59 Units/L (46-116) 06/05/18 23:23 Creatine Kinase 44 Units/L (39-308) 06/05/18 23:23 CK-MB (CK-2) < 1.0 ng/mL (0-4.0) 06/05/18 23:23 CK/CKMB % Calc 2.3 % (<4) 06/05/18 23:23 Troponin I 0.08 ng/mL (0-1.5) 06/05/18 23:23 C-Reactive Protein 35.10 mg/L (0-3.0) H 06/05/18 23:23 Total Protein 8.5 g/dL (6.4-8.2) H 06/05/18 23:23 Albumin 3.4 g/dL (3.4-5.0) 06/05/18 23:23 Globulin 5.1 g/dL (2.5-4.5) H 06/05/18 23:23 Albumin/Globulin Ratio 0.7 Ratio (1.1-2.1) L 06/05/18 23:23 XRAY XRAY Interpreted by: Radiologist
[2018-06-05 23:58] LABS: BLOOD UREA NITROGEN 71 mg/dL (7-18); CALCIUM 9.8 mg/dL (8.5-10.1); CARBON DIOXIDE 19.9 mmol/L (21-32); CHLORIDE 111 mmol/L (98-107); COR NA(FOR HYPERGLY) 146 mmol/L (136-145); CREATININE 1.24 mg/dL (0.70-1.30); SODIUM 145 mmol/L (136-145); TROPONIN I 0.08 ng/mL (0-1.5); eGFR NON BLACK RACES 59 (>60)
--- NOTE | 2018-06-05 23:58 | CT ---
CT head without contrast Indication: Altered mental status Technique: Axial images from the skullbase to the vertex without contrast. Coronal and sagittal refor mats provided. Comparison: 12/06/2017 Findings: Review of bone windows demonstrates no destructive osseous lesion. Paranasal sinuses and ma stoid air cells are clear. There is diffuse cerebral atrophy and microangiopathy. 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 Temporal lobe atrophy noted. There is no acute intracrania l hemorrhage, mass or mass effect. No extra-axial fluid collection or abnormal area of hypoattenuatio n to suggest infarct. Impression: 1. Advanced cerebral atrophy, similar to the prior 2. No acute intracranial hemorrhage Reported By:
[2018-06-06 00:03] LABS: ALANINE AMINOTRANSFERASE 25 Units/L (12-78); ALBUMIN 3.4 g/dL (3.4-5.0); ALKALINE PHOSPHATASE 59 Units/L (46-116); ASPARTATE AMINO TRANSFERASE 19 Units/L (15-37); CKMB % 2.3 % (<4); CREATINE KINASE 44 Units/L (39-308); CREATINE KINASE MB < 1.0 ng/mL (0-4.0); TOTAL PROTEIN 8.5 g/dL (6.4-8.2)
[2018-06-06 00:04] LABS: PLATELET MORPHOLOGY COMMENT NORMAL (NORMAL)
[2018-06-06] MEDS ORDERED: PROVENTIL NEB TX 0.083% 2.5MG/ 3ML NEB ONE (00:27)
[2018-06-06] MEDS: NS 1000 ML 1,000 ML IV SCH ×3 (00:55→17:04)
[2018-06-06] MEDS ORDERED: PROVENTIL NEB TX 0.083% 2.5MG/ 3ML ONE (02:12)
[2018-06-06] MEDS ORDERED: MILK OF MAGNESIA PO PRN (02:54)
[2018-06-06 04:45] VITALS: BMI 15.5
[2018-06-06] MEDS ORDERED: MEGACE PO SCH (09:00)
[2018-06-06] MEDS ORDERED: LANOXIN PO SCH (09:00)
[2018-06-06] MEDS ORDERED: HIPREX PO SCH (09:00)
[2018-06-06] MEDS ORDERED: TAB-A-VITE PO SCH (09:00)
[2018-06-06] MEDS ORDERED: LOPRESSOR TAB 25 MG PO SCH (09:00)
[2018-06-06 09:11] LABS: BILIRUBIN,URINE NEGATIVE (NEGATIVE); BLOOD/HEMOGLOBIN,URINE 5+ (NEGATIVE); GLUCOSE, URINE NEGATIVE (NEGATIVE); KETONES,URINE NEGATIVE (NEGATIVE); LEUKOCYTE ESTERASE ,URINE 3+ (NEGATIVE); NITRITES,URINE NEGATIVE (NEGATIVE); PROTEIN,URINE 3+ (NEGATIVE); UROBILINOGEN,URINE NORMAL (NORMAL)
[2018-06-06 09:26] LABS: APPEARANCE,URINE FLOCCULENT (CLEAR); COLOR,URINE PINK (YELLOW)
[2018-06-06 09:27] LABS: BACTERIA,URINE TRACE /HPF (NEGATIVE); RBC,URINE 20-30 /HPF (NONE SEEN); SQUAMOUS EPITHELIAL CELL,UR RARE /HPF (NEGATIVE)
[2018-06-06] MEDS: LANOXIN INJ IVP SCH (10:21)
[2018-06-06] MEDS: LOVENOX INJ 40 MG SYR SC SCH (12:49)
[2018-06-06] MEDS: NYSTATIN SUSP MT SCH ×3 (12:51→21:38)
--- NOTE | 2018-06-06 13:23 | DR.H&P ---
H&P - History & Physical for Day of: H&P Date: 06/06/18 - Chief Complaint Chief Complaint: unresponsive, AMS - History of Present Illness History of Present Illness: 82 WM, RESIDENT OF [facility] AND PT OF [facility] [employer], ER ADMISSION WITH CO PER FAMILY AND NURSING STAFF UNRESPSONSIVE. PT'S SPOUSE STATES HE HAS RECENTLY BEEN ON BACTRIM FOR UTI AND HAS NOT ATE THIS PAST WEEK AND BECAME COMPLETELY UNRESPONSIVE FOLLOWING ACUTE ILLNESS. PT HAS PMH OF AFIB, OA, RIGHT HIP DECUBITUS, PROSTATE CA, FREQUENT UTI' S, DEMENTIA, HYPERTENSION. PT HAS NOT TAKEN PO MEDICATION FOR AFIB AND HAD ELEVATED HEART RATE ON ADMISSION, WBC 20K. PT HAD CT HEAD IN ER WITHOUT ACUTE FINDINGS. PT ADMITTED TO ICU FOR TREATMENT AND EVALUATION OF UROSEPSIS, AMS - Past Medical History Past Medical History: Coronary Artery Disease, Hypertension, Dementia, Depression, Anxiety, GERD, Sleep Apnea Additional Medical History: Atrial Fib, Muscle Weakness, Prostate Cancer, Cataracts, Urinary Tract Infections, BPH - Past Surgical History Surgical History: Ortho Surgery Additional Surgical History: Cardiac Ablation, Back Surgery - Family History Family Medical History: Hypertension - Social History Does patient currently use any type of tobacco product: No Have you used tobacco products in the last 12 months: No Type of Tobacco Use: None Does any household member use tobacco: No Alcohol Use: None Drug Use: None - Medications Home Medications: iodine Allergy (Intermediate, Verified 12/06/17 12:42) CONTINUE taking the following medications Lactobac 40-Bifido 3-S.thermop [Probiotic] 1 tab PO DAILY 06/06/18 [History] ascorbic acid (vitamin C) [Vitamin C] 1 tab PO BID 06/06/18 [History] aspirin 81 mg PO QDAY 06/06/18 [History] digoxin [Lanoxin] 0.25 mg PO QDAY 06/06/18 [History] megestrol 40 mg PO BID 06/06/18 [History] sulfamethoxazole-trimethoprim [Bactrim DS] 1 tab PO BID 06/06/18 [History] tramadol [Ultram] 50 mg PO BID 06/06/18 [History] zinc sulfate [Zinc-220] 1 tab PO DAILY 06/06/18 [History] - Review of Systems Constitutional: Weakness Eyes: No Symptoms Reported Respiratory: No Symptoms Reported. denies: Cough, Shortness of Breath Cardiovascular: Other ("ELEVATED HEART RATE PER FAMILY") Gastrointestinal: Other (INCONTINENT) Genitourinary: Hematuria Musculoskeletal: No Symptoms Reported Skin: Wound (M) Neurological: Other (AMS, "NOT RESPONDING") - Physical Exam Vital Signs: Temperature 98.1 F Pulse Rate [Apical] 117 Pulse Rate 120 Respiratory Rate 19 Blood Pressure [Left Calf] 142/82 Blood Pressure [Right Calf] 178/86 Blood Pressure [Right Arm] 117/64 Blood Pressure [Left Arm] 129/84 Blood Pressure 143/90 O2 Sat by Pulse Oximetry 98 Oriented: Unable to test Eyes: negative: Discharge, Redness Ear: Normal Throat: Red, Dry Respiratory: Diminished Throughout Cardiovascular: Irregular. negative: Edema Auscultation: Bowel Sounds: Normal Palpation: Normal Tenderness: Normal Skin: Wound (STAGE III TO RIGHT HIP) Musculoskeletal: Right, Left, Leg, Deformity, Motor Deficit Speech Pattern: Aphasic - Assessment/Plan (1) Altered mental state Status: Acute Plan: ADMIT ICU, CT HEAD ON ADMISSION, ADMISSION LABS CBC CMP. UC AND BLOOD CULTURES, SUSPECT UROSEPSIS. PHARMACY CONSULT FOR IV MEDICATION FOR BP CONTROL , AFIB MANAGEMENT. CHOKING PRECAUTIONS, SUPPLEMENTAL O2, CABRERA CATH CARE. STRICT I&O'S, IV ZOYSN SEE PREVIOUS UC SENSATIVITY RESULTS. GENTLE HYDRATION, RATE CONTROL, FAMILY SIGNED LIMITED DNR (2) Sepsis Qualifiers: Sepsis type: sepsis due to unspecified organism Qualified Code(s): A41.9 - Sepsis, unspecified organism Status: Suspected (3) UTI (urinary tract infection) Qualifiers: Urinary tract infection type: site unspecified Hematuria presence: with hematuria Qualified Code(s): N39.0 - Urinary tract infection, site not specified; R31.9 - Hematuria, unspecified Status: Acute (4) Hx of malignant neoplasm of prostate Status: Chronic (5) CAD (coronary artery disease) Qualifiers: Coronary Disease-Associated Artery/Lesion type: [place] artery [place] vs. transplanted heart: [place] heart Associated angina: without angina Qualified Code(s): I25.10 - Atherosclerotic heart disease of [place] coronary artery without angina pectoris Status: Chronic (6) Dementia Qualifiers: Dementia type: vascular dementia Dementia behavioral disturbance: with behavioral disturbance Qualified Code(s): F01.51 - Vascular dementia with behavioral disturbance Status: Chronic (7) History of atrial fibrillation Status: Chronic - Allergies Allergies/Adverse Reactions: Allergies Allergy/AdvReac Type Severity Reaction Status Date / Time iodine Allergy Intermediate Verified 12/06/17 12:42
[2018-06-06] MEDS ORDERED: PHARMACY CONSULT - DOSE _____ XX SCH (14:00)
[2018-06-06] MEDS: LOPRESSOR INJ 5 MG AMP IVP SCH ×2 (14:17→21:37)
[2018-06-06] MEDS: ZOSYN VIAL 3.375 GRAMS 3.375 G in NS 100 ML IV + SPIKE MINIBAG* 100 ML IV SCH ×2 (14:18→21:36)
[2018-06-07] MEDS: LOPRESSOR INJ 5 MG AMP IVP SCH ×4 (03:10→21:43)
[2018-06-07] MEDS: NS 1000 ML 1,000 ML IV SCH ×2 (05:46→08:05)
[2018-06-07] MEDS: ZOSYN VIAL 3.375 GRAMS 3.375 G in NS 100 ML IV + SPIKE MINIBAG* 100 ML IV SCH ×3 (05:46→21:43)
[2018-06-07 05:53] LABS: BASOPHILS # (AUTO) 0.1 X10^3/uL (0.0-0.1); BASOPHILS % (AUTO) 0.8 % (0.2-1.0); EOSINOPHILS # (AUTO) 0.2 x10^3/uL (0.0-0.2); EOSINOPHILS % (AUTO) 1.6 % (0.9-2.9); HEMATOCRIT 38.4 % (42.0-54.0); HEMOGLOBIN 12.8 g/dL (13.5-18.0); LYMPHOCYTES # (AUTO) 2.8 X10^3/uL (1.3-2.9); LYMPHOCYTES % (AUTO) 19.3 % (21.0-51.0); MEAN CORPUSCULAR HEMOGLOBIN 30.8 pg (27.0-34.0); MEAN CORPUSCULAR HGB CONC 33.3 g/dL (33.0-35.0); MEAN CORPUSCULAR VOLUME 92.7 fL (80.0-100.0); MEAN PLATELET VOLUME 8.2 fL (7.4-11.0); MONOCYTES # (AUTO) 1.1 x10^3/uL (0.3-0.8); MONOCYTES % (AUTO) 7.5 % (0.0-13.0); NEUTROPHILS # (AUTO) 10.1 x10^3/uL (2.2-4.8); NEUTROPHILS % (AUTO) 70.8 % (42.0-75.0); PLATELET COUNT 274 X10^3/uL (150.0-450.0); RED BLOOD COUNT 4.15 X10^6/uL (4.7-6.0); RED CELL DISTRIBUTION WIDTH 14.8 % (11.6-16.5); WHITE BLOOD COUNT 14.3 X10^3/uL (3.6-10.0)
[2018-06-07 06:02] LABS: ALANINE AMINOTRANSFERASE 20 Units/L (12-78); ALBUMIN 2.7 g/dL (3.4-5.0); ALKALINE PHOSPHATASE 41 Units/L (46-116); ASPARTATE AMINO TRANSFERASE 16 Units/L (15-37); BLOOD UREA NITROGEN 35 mg/dL (7-18); CALCIUM 8.5 mg/dL (8.5-10.1); CARBON DIOXIDE 25.9 mmol/L (21-32); COR CA(FOR HYPOALB) 9.5 mg/dL (8.5-10.1); CREATININE 0.92 mg/dL (0.70-1.30); TOTAL PROTEIN 6.7 g/dL (6.4-8.2); eGFR NON BLACK RACES > 60 (>60)
[2018-06-07 06:07] LABS: CHLORIDE 119 mmol/L (98-107); SODIUM 153 mmol/L (136-145)
--- NOTE | 2018-06-07 06:45 | RAD ---
HISTORY: Shortness of breath Study: Chest AP portable Comparison: 12/06/2017 Findings: The patient is rotated to the right. The heart is within normal limits in size. The mone are normal. The lungs are well inflated and free of acute infiltrates. No pleural effusions are identified. The b kyree thorax is unremarkable. IMPRESSION: No significant abnormality identified Reported By:
[2018-06-07] MEDS: LOVENOX INJ 40 MG SYR SC SCH ×2 (08:03→09:50)
[2018-06-07] MEDS: LANOXIN INJ IVP SCH (08:04)
[2018-06-07] MEDS: NYSTATIN SUSP MT SCH ×4 (08:05→21:43)
[2018-06-07] MEDS ORDERED: NS 1/2 1000 ML IV 1,000 ML IV ONE (08:41)
[2018-06-07] MEDS ORDERED: LASIX IVP SCH (09:00)
[2018-06-07] MEDS: NS 1/2 1000 ML IV 1,000 ML IV SCH (09:45)
--- NOTE | 2018-06-07 12:56 | PCM.PROG ---
Progress Note - Progress Note for Day of Date of Exam: 06/07/18 - Subjective Subjective: 82 WM ADMITTED ON 06/06 WITH AMS, UTI, DEHYDRATION. PT HAD CULTURES COLLECTED ON ADMISSION,IMPROVING WBC THIS AM 14.3. PT MORE AWAKE AND ALERT, EYES OPEN. PT SPOUSE AT BEDSIDE STATES HE HAS DEMENTIA BUT HAS RECOGNIZED HER THIS AM. CONTINUE WITH IV FLUIDS 1/2NS AT KVO, LASIX 20MG IV X 1 DOSE DUE TO DIMISHED LUNG BASES, BLOOD IN URINE COLLECTION BAG, SPOUSE STATES LOVENOX HAS CAUSED THIS IN THE PAST - Past Medical Family Social History Past Med/Fam/Surg Hx: No changes since H&P Allergies: Allergies iodine Allergy (Intermediate, Verified 12/06/17 12:42) - Review of Systems ROS: No change since H&P - Vital Signs and I&O's Vital Signs: Temperature 98.8 F Pulse Rate [Apical] 101 Pulse Rate 101 Respiratory Rate 17 Blood Pressure [Left Calf] 142/82 Blood Pressure [Right Calf] 178/86 Blood Pressure [Right Arm] 117/64 Blood Pressure [Left Arm] 97/70 Blood Pressure 118/71 O2 Sat by Pulse Oximetry 98 Intake and Output: Intake & Output 06/05/18 06/06/18 06/07/18 06/08/18 11:59 11:59 11:59 11:59 Intake Total 284 / 284 2859 / 2859 Output Total 850 / 850 2850 / 2850 Balance -566 / -566 - Physical Exam Oriented: Unable to test Eyes: negative: Discharge, Redness Ear: Normal Throat: Red, Dry Cardiovascular: Irregular. negative: Edema Auscultation: Bowel Sounds: Normal Tenderness: Normal Skin: Wound (STAGE III TO RIGHT HIP) Musculoskeletal: Right, Left, Leg, Deformity, Motor Deficit Mood Description: Calm Speech Pattern: Inappropriate - Laboratory and Diagnostics Result Diagrams: 06/07/18 05:37 06/07/18 05:37 Labs: 06/06/18 08:51 Urine,Clean Catch Urine Culture - Preliminary Laboratory WBC 14.3 X10^3/uL (3.6-10.0) H 06/07/18 05:37 RBC 4.15 X10^6/uL (4.7-6.0) L 06/07/18 05:37 Hgb 12.8 g/dL (13.5-18.0) L D 06/07/18 05:37 Hct 38.4 % (42.0-54.0) L 06/07/18 05:37 MCV 92.7 fL (80.0-100.0) 06/07/18 05:37 MCH 30.8 pg (27.0-34.0) 06/07/18 05:37 MCHC 33.3 g/dL (33.0-35.0) 06/07/18 05:37 RDW 14.8 % (11.6-16.5) 06/07/18 05:37 Plt Count 274 X10^3/uL (150.0-450.0) 06/07/18 05:37 Plt Count Comment Adequate (ADEQUATE) 06/05/18 23:23 MPV 8.2 fL (7.4-11.0) 06/07/18 05:37 Neut % (Auto) 70.8 % (42.0-75.0) 06/07/18 05:37 Lymph % (Auto) 19.3 % (21.0-51.0) L 06/07/18 05:37 [place] % (Auto) 7.5 % (0.0-13.0) 06/07/18 05:37 Eos % (Auto) 1.6 % (0.9-2.9) 06/07/18 05:37 Baso % (Auto) 0.8 % (0.2-1.0) 06/07/18 05:37 Neut # (Auto) 10.1 x10^3/uL (2.2-4.8) H 06/07/18 05:37 Lymph # (Auto) 2.8 X10^3/uL (1.3-2.9) 06/07/18 05:37 [place] # (Auto) 1.1 x10^3/uL (0.3-0.8) H 06/07/18 05:37 Eos # (Auto) 0.2 x10^3/uL (0.0-0.2) 06/07/18 05:37 Baso # (Auto) 0.1 X10^3/uL (0.0-0.1) 06/07/18 05:37 Absolute Nucleated RBC 0.0 /100WBC 06/07/18 05:37 Total Counted 100 06/05/18 23:23 Neutrophils % (Manual) 78 % (39-76) H 06/05/18 23:23 Lymphocytes % (Manual) 14 % (13-43) 06/05/18 23:23 Monocytes % (Manual) 8 % (4-9) 06/05/18 23:23 Plt Morphology Comment Normal (NORMAL) 06/05/18 23:23 RBC Morphology Normal (NORMAL) 06/05/18 23:23 Sodium 153 mmol/L (136-145) H* 06/07/18 05:37 Corrected Sodium TNP 06/07/18 05:37 Potassium 4.2 mmol/L (3.5-5.1) 06/07/18 05:37 Chloride 119 mmol/L (98-107) H* 06/07/18 05:37 Carbon Dioxide 25.9 mmol/L (21-32) 06/07/18 05:37 BUN 35 mg/dL (7-18) H 06/07/18 05:37 Creatinine 0.92 mg/dL (0.70-1.30) 06/07/18 05:37 Est GFR (MDRD) Af Amer > 60 (>60) 06/07/18 05:37 Est GFR (MDRD) Non-Af > 60 (>60) 06/07/18 05:37 Glucose 94 mg/dL (65-99) 06/07/18 05:37 Calcium 8.5 mg/dL (8.5-10.1) 06/07/18 05:37 Corrected Calcium 9.5 mg/dL (8.5-10.1) 06/07/18 05:37 Total Bilirubin 0.70 mg/dL (0.2-1.0) 06/07/18 05:37 AST 16 Units/L (15-37) 06/07/18 05:37 ALT 20 Units/L (12-78) 06/07/18 05:37 Alkaline Phosphatase 41 Units/L (46-116) L 06/07/18 05:37 Creatine Kinase 44 Units/L (39-308) 06/05/18 23:23 CK-MB (CK-2) < 1.0 ng/mL (0-4.0) 06/05/18 23:23 CK/CKMB % Calc 2.3 % (<4) 06/05/18 23:23 Troponin I 0.08 ng/mL (0-1.5) 06/05/18 23:23 C-Reactive Protein 35.10 mg/L (0-3.0) H 06/05/18 23:23 Total Protein 6.7 g/dL (6.4-8.2) 06/07/18 05:37 Albumin 2.7 g/dL (3.4-5.0) L 06/07/18 05:37 Globulin 4.0 g/dL (2.5-4.5) 06/07/18 05:37 Albumin/Globulin Ratio 0.7 Ratio (1.1-2.1) L 06/07/18 05:37 Specimen Type Catherized urine 06/06/18 08:51 Urine Color [place] (YELLOW) 06/06/18 08:51 Urine Appearance Flocculent (CLEAR) 06/06/18 08:51 Urine pH 7.0 (5.0 - 8.0) 06/06/18 08:51 Ur Specific [place] 1.010 (1.000-1.030) 06/06/18 08:51 Urine Protein 3+ (NEGATIVE) 06/06/18 08:51 Urine Glucose (UA) Negative (NEGATIVE) 06/06/18 08:51 Urine Ketones Negative (NEGATIVE) 06/06/18 08:51 Urine Occult Blood 5+ (NEGATIVE) 06/06/18 08:51 Urine Nitrite Negative (NEGATIVE) 06/06/18 08:51 Urine Bilirubin Negative (NEGATIVE) 06/06/18 08:51 Urine Urobilinogen Normal (NORMAL) 06/06/18 08:51 Ur Leukocyte Esterase 3+ (NEGATIVE) 06/06/18 08:51 Urine RBC 20-30 /HPF (NONE SEEN) 06/06/18 08:51 Urine WBC Tntc /HPF (NONE SEEN) 06/06/18 08:51 Ur Squamous Epith Cells Rare /HPF (NEGATIVE) 06/06/18 08:51 Urine Bacteria Trace /HPF (NEGATIVE) 06/06/18 08:51 Ur Culture Indicated? Yes/culture set up 06/06/18 08:51 - Plan (1) Altered mental state Status: Acute Plan: DUE TO INFECTIOUS PROCESS/ UTI. CT HEAD ON ADMISSION, AM LABS CBC CMP. UC AND BLOOD CULTURES, SUSPECT UROSEPSIS. CHOKING PRECAUTIONS, SUPPLEMENTAL O2 , CABRERA CATH CARE. STRICT I&O'S, IV ZOYSN SEE PREVIOUS UC SENSATIVITY RESULTS. GENTLE HYDRATION, RATE CONTROL, FAMILY SIGNED LIMITED DNR (2) Sepsis Status: Suspected Qualifiers: Sepsis type: sepsis due to unspecified organism Qualified Code(s): A41.9 - Sepsis, unspecified organism (3) UTI (urinary tract infection) Status: Acute Qualifiers: Urinary tract infection type: site unspecified Hematuria presence: with hematuria Qualified Code(s): N39.0 - Urinary tract infection, site not specified; R31.9 - Hematuria, unspecified (4) Hx of malignant neoplasm of prostate Status: Chronic (5) CAD (coronary artery disease) Status: Chronic Qualifiers: Coronary Disease-Associated Artery/Lesion type: [place] artery [place] vs. transplanted heart: [place] heart Associated angina: without angina Qualified Code(s): I25.10 - Atherosclerotic heart disease of [place] coronary artery without angina pectoris (6) Dementia Status: Chronic Qualifiers: Dementia type: vascular dementia Dementia behavioral disturbance: with behavioral disturbance Qualified Code(s): F01.51 - Vascular dementia with behavioral disturbance (7) History of atrial fibrillation Status: Chronic
[2018-06-08] MEDS: LOPRESSOR INJ 5 MG AMP IVP SCH ×4 (03:20→21:35)
[2018-06-08 05:33] LABS: BASOPHILS # (AUTO) 0.1 X10^3/uL (0.0-0.1); BASOPHILS % (AUTO) 0.5 % (0.2-1.0); EOSINOPHILS # (AUTO) 0.3 x10^3/uL (0.0-0.2); EOSINOPHILS % (AUTO) 2.6 % (0.9-2.9); HEMATOCRIT 36.5 % (42.0-54.0); HEMOGLOBIN 12.3 g/dL (13.5-18.0); LYMPHOCYTES # (AUTO) 2.6 X10^3/uL (1.3-2.9); LYMPHOCYTES % (AUTO) 21.3 % (21.0-51.0); MEAN CORPUSCULAR HEMOGLOBIN 31.2 pg (27.0-34.0); MEAN CORPUSCULAR HGB CONC 33.7 g/dL (33.0-35.0); MEAN CORPUSCULAR VOLUME 92.5 fL (80.0-100.0); MEAN PLATELET VOLUME 8.7 fL (7.4-11.0); MONOCYTES # (AUTO) 0.9 x10^3/uL (0.3-0.8); MONOCYTES % (AUTO) 7.1 % (0.0-13.0); NEUTROPHILS # (AUTO) 8.4 x10^3/uL (2.2-4.8); NEUTROPHILS % (AUTO) 68.5 % (42.0-75.0); PLATELET COUNT 258 X10^3/uL (150.0-450.0); RED BLOOD COUNT 3.95 X10^6/uL (4.7-6.0); RED CELL DISTRIBUTION WIDTH 15.1 % (11.6-16.5); WHITE BLOOD COUNT 12.2 X10^3/uL (3.6-10.0)
[2018-06-08 05:38] LABS: ALANINE AMINOTRANSFERASE 19 Units/L (12-78); ALBUMIN 2.6 g/dL (3.4-5.0); ALKALINE PHOSPHATASE 42 Units/L (46-116); ASPARTATE AMINO TRANSFERASE 17 Units/L (15-37); BLOOD UREA NITROGEN 29 mg/dL (7-18); CALCIUM 8.5 mg/dL (8.5-10.1); CARBON DIOXIDE 24.8 mmol/L (21-32); COR CA(FOR HYPOALB) 9.6 mg/dL (8.5-10.1); CREATININE 0.88 mg/dL (0.70-1.30); SODIUM 149 mmol/L (136-145); TOTAL PROTEIN 6.6 g/dL (6.4-8.2); eGFR NON BLACK RACES > 60 (>60)
[2018-06-08 05:39] LABS: CHLORIDE 115 mmol/L (98-107)
[2018-06-08] MEDS: ZOSYN VIAL 3.375 GRAMS 3.375 G in NS 100 ML IV + SPIKE MINIBAG* 100 ML IV SCH (06:05)
[2018-06-08] MEDS: LANOXIN INJ IVP SCH (08:02)
[2018-06-08] MEDS: NS 1/2 1000 ML IV 1,000 ML IV SCH (08:03)
[2018-06-08] MEDS: NYSTATIN SUSP MT SCH ×4 (08:12→21:09)
[2018-06-09] MEDS: LOPRESSOR INJ 5 MG AMP IVP SCH ×4 (02:20→21:34)
[2018-06-09 04:57] LABS: BASOPHILS # (AUTO) 0.1 X10^3/uL (0.0-0.1); BASOPHILS % (AUTO) 0.6 % (0.2-1.0); EOSINOPHILS # (AUTO) 0.3 x10^3/uL (0.0-0.2); HEMATOCRIT 34.2 % (42.0-54.0); HEMOGLOBIN 11.6 g/dL (13.5-18.0); LYMPHOCYTES # (AUTO) 3.7 X10^3/uL (1.3-2.9); LYMPHOCYTES % (AUTO) 32.1 % (21.0-51.0); MEAN CORPUSCULAR HEMOGLOBIN 31.1 pg (27.0-34.0); MEAN CORPUSCULAR VOLUME 91.6 fL (80.0-100.0); MEAN PLATELET VOLUME 8.3 fL (7.4-11.0); MONOCYTES # (AUTO) 0.8 x10^3/uL (0.3-0.8); MONOCYTES % (AUTO) 6.7 % (0.0-13.0); NEUTROPHILS # (AUTO) 6.7 x10^3/uL (2.2-4.8); NEUTROPHILS % (AUTO) 57.6 % (42.0-75.0); PLATELET COUNT 248 X10^3/uL (150.0-450.0); RED BLOOD COUNT 3.73 X10^6/uL (4.7-6.0); RED CELL DISTRIBUTION WIDTH 14.7 % (11.6-16.5); WHITE BLOOD COUNT 11.7 X10^3/uL (3.6-10.0)
[2018-06-09 05:09] LABS: ALANINE AMINOTRANSFERASE 18 Units/L (12-78); ALBUMIN 2.5 g/dL (3.4-5.0); ALKALINE PHOSPHATASE 42 Units/L (46-116); ASPARTATE AMINO TRANSFERASE 15 Units/L (15-37); BLOOD UREA NITROGEN 19 mg/dL (7-18); CALCIUM 8.5 mg/dL (8.5-10.1); CARBON DIOXIDE 25.7 mmol/L (21-32); CHLORIDE 111 mmol/L (98-107); COR CA(FOR HYPOALB) 9.7 mg/dL (8.5-10.1); CREATININE 0.77 mg/dL (0.70-1.30); SODIUM 144 mmol/L (136-145); TOTAL PROTEIN 6.4 g/dL (6.4-8.2); eGFR NON BLACK RACES > 60 (>60)
--- NOTE | 2018-06-09 07:00 | RAD ---
HISTORY: Shortness of breath Study: Chest AP portable Comparison: 06/07/2018 Findings: The heart is within normal limits in size. The mone are normal. The lungs are free of acute infiltrat es. No pleural effusions are identified. The bony thorax is unremarkable. IMPRESSION: Lungs clear Reported By:
[2018-06-09] MEDS: NYSTATIN SUSP MT SCH ×5 (10:17→21:32)
[2018-06-09] MEDS: LANOXIN INJ IVP SCH (10:17)
[2018-06-09] MEDS: ROCEPHIN VIAL 1 GRAM 1 G in NS 100 ML IV + SPIKE MINIBAG* 100 ML IV SCH (10:18)
--- NOTE | 2018-06-09 14:58 | PCM.PROG ---
Progress Note - Progress Note for Day of Date of Exam: 06/08/18 - Subjective Subjective: 82 WM ADMITTED ON 06/06 WITH AMS, UTI, DEHYDRATION. PT HAD CULTURES COLLECTED ON ADMISSION,IMPROVING WBC THIS AM 12.2. PT MORE AWAKE AND ALERT, EYES OPEN. PT SPOUSE AT BEDSIDE STATES HE HAS DEMENTIA BUT HAS RECOGNIZED HER THIS AM. CONTINUE WITH IV FLUIDS 1/2NS AT KVO, ENCOURATE ORAL HYDRATION, NS DOWN TO 149 THIS AM. - Past Medical Family Social History Past Med/Fam/Surg Hx: No changes since H&P Allergies: Allergies iodine Allergy (Intermediate, Verified 12/06/17 12:42) - Review of Systems ROS: No change since H&P - Vital Signs and I&O's Vital Signs: Temperature 98.0 F Pulse Rate [Apical] 58 Pulse Rate 85 Respiratory Rate 18 Blood Pressure [Left Calf] 142/82 Blood Pressure [Right Calf] 178/86 Blood Pressure [Right Arm] 117/64 Blood Pressure [Left Arm] 115/59 Blood Pressure 105/69 O2 Sat by Pulse Oximetry 94 Intake and Output: Intake & Output 06/07/18 06/08/18 06/09/18 06/10/18 11:59 11:59 11:59 11:59 Intake Total 2859 / 2859 1064 / 1064 854 / 854 Output Total 2850 / 2850 1250 / 1250 850 / 850 Balance -186 / -186 - Physical Exam Oriented: Unable to test Eyes: negative: Discharge, Redness Ear: Normal Throat: Red, Dry Respiratory: Diminished Cardiovascular: Irregular. negative: Edema Auscultation: Bowel Sounds: Normal Tenderness: Normal Skin: Wound (STAGE III TO RIGHT HIP) Musculoskeletal: Right, Left, Leg, Deformity, Motor Deficit Mood Description: Calm Speech Pattern: Unclear - Laboratory and Diagnostics Result Diagrams: 06/09/18 04:45 06/09/18 04:45 Labs: 06/06/18 08:49 Blood Blood Culture - Final 06/06/18 08:42 Blood Blood Culture - Preliminary 06/06/18 08:51 Urine,Clean Catch Urine Culture - Final [facility] WBC 11.7 X10^3/uL (3.6-10.0) H 06/09/18 04:45 RBC 3.73 X10^6/uL (4.7-6.0) L 06/09/18 04:45 Hgb 11.6 g/dL (13.5-18.0) L 06/09/18 04:45 Hct 34.2 % (42.0-54.0) L 06/09/18 04:45 MCV 91.6 fL (80.0-100.0) 06/09/18 04:45 MCH 31.1 pg (27.0-34.0) 06/09/18 04:45 MCHC 34.0 g/dL (33.0-35.0) 06/09/18 04:45 RDW 14.7 % (11.6-16.5) 06/09/18 04:45 Plt Count 248 X10^3/uL (150.0-450.0) 06/09/18 04:45 Plt Count Comment Adequate (ADEQUATE) 06/05/18 23:23 MPV 8.3 fL (7.4-11.0) 06/09/18 04:45 Neut % (Auto) 57.6 % (42.0-75.0) 06/09/18 04:45 Lymph % (Auto) 32.1 % (21.0-51.0) 06/09/18 04:45 [place] % (Auto) 6.7 % (0.0-13.0) 06/09/18 04:45 Eos % (Auto) 3.0 % (0.9-2.9) H 06/09/18 04:45 Baso % (Auto) 0.6 % (0.2-1.0) 06/09/18 04:45 Neut # (Auto) 6.7 x10^3/uL (2.2-4.8) H 06/09/18 04:45 Lymph # (Auto) 3.7 X10^3/uL (1.3-2.9) H 06/09/18 04:45 [place] # (Auto) 0.8 x10^3/uL (0.3-0.8) 06/09/18 04:45 Eos # (Auto) 0.3 x10^3/uL (0.0-0.2) H 06/09/18 04:45 Baso # (Auto) 0.1 X10^3/uL (0.0-0.1) 06/09/18 04:45 Absolute Nucleated RBC 0.1 /100WBC 06/09/18 04:45 Total Counted 100 06/05/18 23:23 Neutrophils % (Manual) 78 % (39-76) H 06/05/18 23:23 Lymphocytes % (Manual) 14 % (13-43) 06/05/18 23:23 Monocytes % (Manual) 8 % (4-9) 06/05/18 23:23 Plt Morphology Comment Normal (NORMAL) 06/05/18 23:23 RBC Morphology Normal (NORMAL) 06/05/18 23:23 Sodium 144 mmol/L (136-145) 06/09/18 04:45 Corrected Sodium TNP 06/09/18 04:45 Potassium 5.0 mmol/L (3.5-5.1) 06/09/18 04:45 Chloride 111 mmol/L (98-107) H 06/09/18 04:45 Carbon Dioxide 25.7 mmol/L (21-32) 06/09/18 04:45 BUN 19 mg/dL (7-18) H 06/09/18 04:45 Creatinine 0.77 mg/dL (0.70-1.30) 06/09/18 04:45 Est GFR (MDRD) Af Amer > 60 (>60) 06/09/18 04:45 Est GFR (MDRD) Non-Af > 60 (>60) 06/09/18 04:45 Glucose 84 mg/dL (65-99) 06/09/18 04:45 Calcium 8.5 mg/dL (8.5-10.1) 06/09/18 04:45 Corrected Calcium 9.7 mg/dL (8.5-10.1) 06/09/18 04:45 Total Bilirubin 0.70 mg/dL (0.2-1.0) 06/09/18 04:45 AST 15 Units/L (15-37) 06/09/18 04:45 ALT 18 Units/L (12-78) 06/09/18 04:45 Alkaline Phosphatase 42 Units/L (46-116) L 06/09/18 04:45 Creatine Kinase 44 Units/L (39-308) 06/05/18 23:23 CK-MB (CK-2) < 1.0 ng/mL (0-4.0) 06/05/18 23:23 CK/CKMB % Calc 2.3 % (<4) 06/05/18 23:23 Troponin I 0.08 ng/mL (0-1.5) 06/05/18 23:23 C-Reactive Protein 35.10 mg/L (0-3.0) H 06/05/18 23:23 Total Protein 6.4 g/dL (6.4-8.2) 06/09/18 04:45 Albumin 2.5 g/dL (3.4-5.0) L 06/09/18 04:45 Globulin 3.9 g/dL (2.5-4.5) 06/09/18 04:45 Albumin/Globulin Ratio 0.6 Ratio (1.1-2.1) L 06/09/18 04:45 Specimen Type Catherized urine 06/06/18 08:51 Urine Color [place] (YELLOW) 06/06/18 08:51 Urine Appearance Flocculent (CLEAR) 06/06/18 08:51 Urine pH 7.0 (5.0 - 8.0) 06/06/18 08:51 Ur Specific [place] 1.010 (1.000-1.030) 06/06/18 08:51 Urine Protein 3+ (NEGATIVE) 06/06/18 08:51 Urine Glucose (UA) Negative (NEGATIVE) 06/06/18 08:51 Urine Ketones Negative (NEGATIVE) 06/06/18 08:51 Urine Occult Blood 5+ (NEGATIVE) 06/06/18 08:51 Urine Nitrite Negative (NEGATIVE) 06/06/18 08:51 Urine Bilirubin Negative (NEGATIVE) 06/06/18 08:51 Urine Urobilinogen Normal (NORMAL) 06/06/18 08:51 Ur Leukocyte Esterase 3+ (NEGATIVE) 06/06/18 08:51 Urine RBC 20-30 /HPF (NONE SEEN) 06/06/18 08:51 Urine WBC Tntc /HPF (NONE SEEN) 06/06/18 08:51 Ur Squamous Epith Cells Rare /HPF (NEGATIVE) 06/06/18 08:51 Urine Bacteria Trace /HPF (NEGATIVE) 06/06/18 08:51 Ur Culture Indicated? Yes/culture set up 06/06/18 08:51 - Plan (1) Altered mental state Status: Acute Plan: DUE TO INFECTIOUS PROCESS/ UTI. CT HEAD ON ADMISSION W/O ACUTE CHANGES, AM LABS CBC CMP. UC AND BLOOD CULTURES, SUSPECT UROSEPSIS. CHOKING PRECAUTIONS , SUPPLEMENTAL O2, CABRERA CATH CARE. STRICT I&O'S, UC +PROTEUS MIRABILIS ON ROCEPHIN 1GM IV DAILY. GENTLE HYDRATION, RATE CONTROL, FAMILY SIGNED LIMITED DNR (2) Sepsis Status: Suspected Qualifiers: Sepsis type: sepsis due to unspecified organism Qualified Code(s): A41.9 - Sepsis, unspecified organism (3) UTI (urinary tract infection) Status: Acute Qualifiers: Urinary tract infection type: site unspecified Hematuria presence: with hematuria Qualified Code(s): N39.0 - Urinary tract infection, site not specified; R31.9 - Hematuria, unspecified (4) Hx of malignant neoplasm of prostate Status: Chronic (5) CAD (coronary artery disease) Status: Chronic Qualifiers: Coronary Disease-Associated Artery/Lesion type: [place] artery [place] vs. transplanted heart: [place] heart Associated angina: without angina Qualified Code(s): I25.10 - Atherosclerotic heart disease of [place] coronary artery without angina pectoris (6) Dementia Status: Chronic Qualifiers: Dementia type: vascular dementia Dementia behavioral disturbance: with behavioral disturbance Qualified Code(s): F01.51 - Vascular dementia with behavioral disturbance (7) History of atrial fibrillation Status: Chronic
--- NOTE | 2018-06-09 15:01 | PCM.PROG ---
Progress Note - Progress Note for Day of Date of Exam: 06/09/18 - Subjective Subjective: 82 WM ADMITTED ON 06/06 WITH AMS, UTI, DEHYDRATION. PT HAD CULTURES COLLECTED ON ADMISSION,IMPROVING WBC THIS AM 11.7. PT MORE AWAKE AND ALERT, EYES OPEN. PT SPOUSE AT BEDSIDE STATES HE HAS DEMENTIA BUT HAS RECOGNIZED HER THIS AM. CONTINUE WITH IV FLUIDS 1/2NS AT KVO, ENCOURATE ORAL HYDRATION, NS DOWN TO 144 THIS AM. SPOUSE REPORTS PT HAD CHOKING EPISODE WHILE EATING THIS AM AND SHE IS CONCERNED HE MAY HAVE ASPIRATED. PT HAD BILATERAL DIMINISHED LUNG BASES, NO WHEEZES, RALES OR RHONCHI. PT VS ARE STABLE AND NO SIGNS OF RESP DISTRESS. DISCUSSED OPTIONS FOR FEEDING TUBE DUE TO ASPIRATION RISK AND PROGRESSIVE DEMENTIA FAMILY REFUSED AT THIS TIME. SPEECH ASSESSMENT AND AM CXR, MONITOR O2 SATURATION - Past Medical Family Social History Past Med/Fam/Surg Hx: No changes since H&P Allergies: Allergies iodine Allergy (Intermediate, Verified 12/06/17 12:42) - Review of Systems ROS: No change since H&P - Vital Signs and I&O's Vital Signs: Temperature 98.0 F Pulse Rate [Apical] 58 Pulse Rate 85 Respiratory Rate 18 Blood Pressure [Left Calf] 142/82 Blood Pressure [Right Calf] 178/86 Blood Pressure [Right Arm] 117/64 Blood Pressure [Left Arm] 115/59 Blood Pressure 105/69 O2 Sat by Pulse Oximetry 94 Intake and Output: Intake & Output 06/07/18 06/08/18 06/09/18 06/10/18 11:59 11:59 11:59 11:59 Intake Total 2859 / 2859 1064 / 1064 854 / 854 Output Total 2850 / 2850 1250 / 1250 850 / 850 Balance -186 / -186 - Physical Exam Oriented: Unable to test Eyes: negative: Discharge, Redness Ear: Normal Throat: Red, Dry Respiratory: Diminished Cardiovascular: Irregular. negative: Edema Auscultation: Bowel Sounds: Normal Tenderness: Normal Skin: Wound (STAGE III TO RIGHT HIP) Musculoskeletal: Right, Left, Leg, Deformity, Motor Deficit Mood Description: Calm Speech Pattern: Unclear - Laboratory and Diagnostics Result Diagrams: 06/09/18 04:45 06/09/18 04:45 Labs: 06/06/18 08:49 Blood Blood Culture - Final 06/06/18 08:42 Blood Blood Culture - Preliminary 06/06/18 08:51 Urine,Clean Catch Urine Culture - Final [facility] WBC 11.7 X10^3/uL (3.6-10.0) H 06/09/18 04:45 RBC 3.73 X10^6/uL (4.7-6.0) L 06/09/18 04:45 Hgb 11.6 g/dL (13.5-18.0) L 06/09/18 04:45 Hct 34.2 % (42.0-54.0) L 06/09/18 04:45 MCV 91.6 fL (80.0-100.0) 06/09/18 04:45 MCH 31.1 pg (27.0-34.0) 06/09/18 04:45 MCHC 34.0 g/dL (33.0-35.0) 06/09/18 04:45 RDW 14.7 % (11.6-16.5) 06/09/18 04:45 Plt Count 248 X10^3/uL (150.0-450.0) 06/09/18 04:45 Plt Count Comment Adequate (ADEQUATE) 06/05/18 23:23 MPV 8.3 fL (7.4-11.0) 06/09/18 04:45 Neut % (Auto) 57.6 % (42.0-75.0) 06/09/18 04:45 Lymph % (Auto) 32.1 % (21.0-51.0) 06/09/18 04:45 [place] % (Auto) 6.7 % (0.0-13.0) 06/09/18 04:45 Eos % (Auto) 3.0 % (0.9-2.9) H 06/09/18 04:45 Baso % (Auto) 0.6 % (0.2-1.0) 06/09/18 04:45 Neut # (Auto) 6.7 x10^3/uL (2.2-4.8) H 06/09/18 04:45 Lymph # (Auto) 3.7 X10^3/uL (1.3-2.9) H 06/09/18 04:45 [place] # (Auto) 0.8 x10^3/uL (0.3-0.8) 06/09/18 04:45 Eos # (Auto) 0.3 x10^3/uL (0.0-0.2) H 06/09/18 04:45 Baso # (Auto) 0.1 X10^3/uL (0.0-0.1) 06/09/18 04:45 Absolute Nucleated RBC 0.1 /100WBC 06/09/18 04:45 Total Counted 100 06/05/18 23:23 Neutrophils % (Manual) 78 % (39-76) H 06/05/18 23:23 Lymphocytes % (Manual) 14 % (13-43) 06/05/18 23:23 Monocytes % (Manual) 8 % (4-9) 06/05/18 23:23 Plt Morphology Comment Normal (NORMAL) 06/05/18 23:23 RBC Morphology Normal (NORMAL) 06/05/18 23:23 Sodium 144 mmol/L (136-145) 06/09/18 04:45 Corrected Sodium TNP 06/09/18 04:45 Potassium 5.0 mmol/L (3.5-5.1) 06/09/18 04:45 Chloride 111 mmol/L (98-107) H 06/09/18 04:45 Carbon Dioxide 25.7 mmol/L (21-32) 06/09/18 04:45 BUN 19 mg/dL (7-18) H 06/09/18 04:45 Creatinine 0.77 mg/dL (0.70-1.30) 06/09/18 04:45 Est GFR (MDRD) Af Amer > 60 (>60) 06/09/18 04:45 Est GFR (MDRD) Non-Af > 60 (>60) 06/09/18 04:45 Glucose 84 mg/dL (65-99) 06/09/18 04:45 Calcium 8.5 mg/dL (8.5-10.1) 06/09/18 04:45 Corrected Calcium 9.7 mg/dL (8.5-10.1) 06/09/18 04:45 Total Bilirubin 0.70 mg/dL (0.2-1.0) 06/09/18 04:45 AST 15 Units/L (15-37) 06/09/18 04:45 ALT 18 Units/L (12-78) 06/09/18 04:45 Alkaline Phosphatase 42 Units/L (46-116) L 06/09/18 04:45 Creatine Kinase 44 Units/L (39-308) 06/05/18 23:23 CK-MB (CK-2) < 1.0 ng/mL (0-4.0) 06/05/18 23:23 CK/CKMB % Calc 2.3 % (<4) 06/05/18 23:23 Troponin I 0.08 ng/mL (0-1.5) 06/05/18 23:23 C-Reactive Protein 35.10 mg/L (0-3.0) H 06/05/18 23:23 Total Protein 6.4 g/dL (6.4-8.2) 06/09/18 04:45 Albumin 2.5 g/dL (3.4-5.0) L 06/09/18 04:45 Globulin 3.9 g/dL (2.5-4.5) 06/09/18 04:45 Albumin/Globulin Ratio 0.6 Ratio (1.1-2.1) L 06/09/18 04:45 Specimen Type Catherized urine 06/06/18 08:51 Urine Color [place] (YELLOW) 06/06/18 08:51 Urine Appearance Flocculent (CLEAR) 06/06/18 08:51 Urine pH 7.0 (5.0 - 8.0) 06/06/18 08:51 Ur Specific [place] 1.010 (1.000-1.030) 06/06/18 08:51 Urine Protein 3+ (NEGATIVE) 06/06/18 08:51 Urine Glucose (UA) Negative (NEGATIVE) 06/06/18 08:51 Urine Ketones Negative (NEGATIVE) 06/06/18 08:51 Urine Occult Blood 5+ (NEGATIVE) 06/06/18 08:51 Urine Nitrite Negative (NEGATIVE) 06/06/18 08:51 Urine Bilirubin Negative (NEGATIVE) 06/06/18 08:51 Urine Urobilinogen Normal (NORMAL) 06/06/18 08:51 Ur Leukocyte Esterase 3+ (NEGATIVE) 06/06/18 08:51 Urine RBC 20-30 /HPF (NONE SEEN) 06/06/18 08:51 Urine WBC Tntc /HPF (NONE SEEN) 06/06/18 08:51 Ur Squamous Epith Cells Rare /HPF (NEGATIVE) 06/06/18 08:51 Urine Bacteria Trace /HPF (NEGATIVE) 06/06/18 08:51 Ur Culture Indicated? Yes/culture set up 06/06/18 08:51 - Plan (1) Altered mental state Status: Acute Plan: DUE TO INFECTIOUS PROCESS/ UTI. CT HEAD ON ADMISSION W/O ACUTE CHANGES, AM LABS CBC CMP. UC AND BLOOD CULTURES, SUSPECT UROSEPSIS. CHOKING PRECAUTIONS , SUPPLEMENTAL O2, CABRERA CATH CARE. STRICT I&O'S, UC +PROTEUS MIRABILIS ON ROCEPHIN 1GM IV DAILY. GENTLE HYDRATION, RATE CONTROL, FAMILY SIGNED LIMITED DNR. DISCUSSED OPTIONS FOR FEEDING TUBE DUE TO ASPIRATION RISK AND PROGRESSIVE DEMENTIA FAMILY REFUSED AT THIS TIME. SPEECH ASSESSMENT AND AM CXR, MONITOR O2 SATURATION (2) Sepsis Status: Suspected Qualifiers: Sepsis type: sepsis due to unspecified organism Qualified Code(s): A41.9 - Sepsis, unspecified organism (3) UTI (urinary tract infection) Status: Acute Qualifiers: Urinary tract infection type: site unspecified Hematuria presence: with hematuria Qualified Code(s): N39.0 - Urinary tract infection, site not specified; R31.9 - Hematuria, unspecified (4) Hx of malignant neoplasm of prostate Status: Chronic (5) CAD (coronary artery disease) Status: Chronic Qualifiers: Coronary Disease-Associated Artery/Lesion type: [place] artery [place] vs. transplanted heart: [place] heart Associated angina: without angina Qualified Code(s): I25.10 - Atherosclerotic heart disease of [place] coronary artery without angina pectoris (6) Dementia Status: Chronic Qualifiers: Dementia type: vascular dementia Dementia behavioral disturbance: with behavioral disturbance Qualified Code(s): F01.51 - Vascular dementia with behavioral disturbance (7) History of atrial fibrillation Status: Chronic (8) Aspiration into airway Status: Acute Plan: REPEAT CXR AM, MONITOR FOR SIGNS FOR RESP DISTRESS, MONIOTOR O2 SATURATION. SPEECH TO ASSESS SWALLOWING
[2018-06-09] MEDS ORDERED: NS 1/2 1000 ML IV 1,000 ML IV ONE (16:30)
[2018-06-09] MEDS: NS 1/2 1000 ML IV 1,000 ML IV SCH (16:34)
[2018-06-10] MEDS: LOPRESSOR INJ 5 MG AMP IVP SCH ×4 (04:30→22:02)
[2018-06-10 05:18] LABS: BASOPHILS # (AUTO) 0.1 X10^3/uL (0.0-0.1); BASOPHILS % (AUTO) 0.7 % (0.2-1.0); EOSINOPHILS # (AUTO) 0.3 x10^3/uL (0.0-0.2); EOSINOPHILS % (AUTO) 3.4 % (0.9-2.9); HEMATOCRIT 34.2 % (42.0-54.0); HEMOGLOBIN 11.7 g/dL (13.5-18.0); LYMPHOCYTES # (AUTO) 2.6 X10^3/uL (1.3-2.9); LYMPHOCYTES % (AUTO) 25.9 % (21.0-51.0); MEAN CORPUSCULAR HEMOGLOBIN 31.2 pg (27.0-34.0); MEAN CORPUSCULAR HGB CONC 34.2 g/dL (33.0-35.0); MEAN CORPUSCULAR VOLUME 91.1 fL (80.0-100.0); MEAN PLATELET VOLUME 9.3 fL (7.4-11.0); MONOCYTES # (AUTO) 0.8 x10^3/uL (0.3-0.8); MONOCYTES % (AUTO) 7.7 % (0.0-13.0); NEUTROPHILS # (AUTO) 6.4 x10^3/uL (2.2-4.8); NEUTROPHILS % (AUTO) 62.3 % (42.0-75.0); PLATELET COUNT 210 X10^3/uL (150.0-450.0); RED BLOOD COUNT 3.75 X10^6/uL (4.7-6.0); RED CELL DISTRIBUTION WIDTH 14.7 % (11.6-16.5); WHITE BLOOD COUNT 10.2 X10^3/uL (3.6-10.0)
[2018-06-10 05:40] LABS: ALANINE AMINOTRANSFERASE 16 Units/L (12-78); ALBUMIN 2.4 g/dL (3.4-5.0); ALKALINE PHOSPHATASE 48 Units/L (46-116); ASPARTATE AMINO TRANSFERASE 17 Units/L (15-37); BLOOD UREA NITROGEN 13 mg/dL (7-18); CALCIUM 8.3 mg/dL (8.5-10.1); CARBON DIOXIDE 25.1 mmol/L (21-32); CHLORIDE 109 mmol/L (98-107); COR CA(FOR HYPOALB) 9.6 mg/dL (8.5-10.1); CREATININE 0.63 mg/dL (0.70-1.30); SODIUM 141 mmol/L (136-145); TOTAL PROTEIN 6.4 g/dL (6.4-8.2); eGFR NON BLACK RACES > 60 (>60)
[2018-06-10] MEDS: ROCEPHIN VIAL 1 GRAM 1 G in NS 100 ML IV + SPIKE MINIBAG* 100 ML IV SCH (09:29)
[2018-06-10] MEDS: NYSTATIN SUSP MT SCH ×4 (09:32→22:00)
[2018-06-10] MEDS: LANOXIN INJ IVP SCH (10:37)
[2018-06-11] MEDS: NS 1/2 1000 ML IV 1,000 ML IV SCH ×2 (03:00→09:03)
[2018-06-11] MEDS ORDERED: NS 1/2 1000 ML IV 1,000 ML IV ONE (03:21)
[2018-06-11] MEDS: LOPRESSOR INJ 5 MG AMP IVP SCH ×4 (04:30→21:30)
[2018-06-11 05:03] LABS: BASOPHILS # (AUTO) 0.1 X10^3/uL (0.0-0.1); BASOPHILS % (AUTO) 0.8 % (0.2-1.0); EOSINOPHILS # (AUTO) 0.4 x10^3/uL (0.0-0.2); EOSINOPHILS % (AUTO) 3.4 % (0.9-2.9); HEMATOCRIT 33.7 % (42.0-54.0); HEMOGLOBIN 11.7 g/dL (13.5-18.0); LYMPHOCYTES # (AUTO) 2.3 X10^3/uL (1.3-2.9); LYMPHOCYTES % (AUTO) 22.2 % (21.0-51.0); MEAN CORPUSCULAR HEMOGLOBIN 31.6 pg (27.0-34.0); MEAN CORPUSCULAR HGB CONC 34.7 g/dL (33.0-35.0); MEAN PLATELET VOLUME 8.9 fL (7.4-11.0); MONOCYTES # (AUTO) 0.9 x10^3/uL (0.3-0.8); MONOCYTES % (AUTO) 8.6 % (0.0-13.0); NEUTROPHILS # (AUTO) 6.9 x10^3/uL (2.2-4.8); PLATELET COUNT 217 X10^3/uL (150.0-450.0); RED CELL DISTRIBUTION WIDTH 14.7 % (11.6-16.5); WHITE BLOOD COUNT 10.5 X10^3/uL (3.6-10.0)
[2018-06-11 05:14] LABS: ALANINE AMINOTRANSFERASE 14 Units/L (12-78); ALBUMIN 2.4 g/dL (3.4-5.0); ALKALINE PHOSPHATASE 52 Units/L (46-116); ASPARTATE AMINO TRANSFERASE 13 Units/L (15-37); BLOOD UREA NITROGEN 10 mg/dL (7-18); CALCIUM 8.2 mg/dL (8.5-10.1); CARBON DIOXIDE 22.6 mmol/L (21-32); CHLORIDE 107 mmol/L (98-107); COR CA(FOR HYPOALB) 9.5 mg/dL (8.5-10.1); CREATININE 0.66 mg/dL (0.70-1.30); MAGNESIUM 1.9 mg/dL (1.7-2.9); SODIUM 140 mmol/L (136-145); TOTAL PROTEIN 6.4 g/dL (6.4-8.2); eGFR NON BLACK RACES > 60 (>60)
[2018-06-11] MEDS: LANOXIN INJ IVP SCH (09:03)
[2018-06-11] MEDS: NYSTATIN SUSP MT SCH ×4 (09:03→21:30)
[2018-06-11] MEDS: ROCEPHIN VIAL 1 GRAM 1 G in NS 100 ML IV + SPIKE MINIBAG* 100 ML IV SCH (09:05)
[2018-06-11] MEDS ORDERED: BUTT CREAM (COMPOUND) TOP PRN (09:50)
[2018-06-12] MEDS: LOPRESSOR INJ 5 MG AMP IVP SCH ×2 (04:00→09:50)
[2018-06-12 05:09] LABS: BASOPHILS # (AUTO) 0.1 X10^3/uL (0.0-0.1); BASOPHILS % (AUTO) 0.9 % (0.2-1.0); EOSINOPHILS # (AUTO) 0.3 x10^3/uL (0.0-0.2); EOSINOPHILS % (AUTO) 3.1 % (0.9-2.9); HEMATOCRIT 35.1 % (42.0-54.0); HEMOGLOBIN 12.3 g/dL (13.5-18.0); LYMPHOCYTES # (AUTO) 2.7 X10^3/uL (1.3-2.9); LYMPHOCYTES % (AUTO) 25.9 % (21.0-51.0); MEAN CORPUSCULAR HEMOGLOBIN 31.7 pg (27.0-34.0); MEAN CORPUSCULAR HGB CONC 35.1 g/dL (33.0-35.0); MEAN CORPUSCULAR VOLUME 90.5 fL (80.0-100.0); MEAN PLATELET VOLUME 9.1 fL (7.4-11.0); MONOCYTES % (AUTO) 9.9 % (0.0-13.0); NEUTROPHILS # (AUTO) 6.2 x10^3/uL (2.2-4.8); NEUTROPHILS % (AUTO) 60.2 % (42.0-75.0); PLATELET COUNT 230 X10^3/uL (150.0-450.0); RED BLOOD COUNT 3.88 X10^6/uL (4.7-6.0); RED CELL DISTRIBUTION WIDTH 14.8 % (11.6-16.5); WHITE BLOOD COUNT 10.3 X10^3/uL (3.6-10.0)
[2018-06-12 05:14] LABS: ALANINE AMINOTRANSFERASE 13 Units/L (12-78); ALBUMIN 2.5 g/dL (3.4-5.0); ALKALINE PHOSPHATASE 50 Units/L (46-116); ASPARTATE AMINO TRANSFERASE 15 Units/L (15-37); BLOOD UREA NITROGEN 10 mg/dL (7-18); CALCIUM 8.4 mg/dL (8.5-10.1); CHLORIDE 106 mmol/L (98-107); COR CA(FOR HYPOALB) 9.6 mg/dL (8.5-10.1); CREATININE 0.57 mg/dL (0.70-1.30); SODIUM 140 mmol/L (136-145); TOTAL PROTEIN 6.8 g/dL (6.4-8.2); eGFR NON BLACK RACES > 60 (>60)
[2018-06-12] MEDS ORDERED: K-RIDER 10 MEQ/NS 100 ML 10 MEQ/100 ML BAG IV PRN (05:36)
[2018-06-12] MEDS ORDERED: POTASSIUM CHLORIDE LIQ 20 MEQ UDC PO PRN (05:36)
[2018-06-12] MEDS ORDERED: POTASSIUM CHL 40 MEQ/NS 0.45% 500 ML IV PRN (05:36)
[2018-06-12] MEDS ORDERED: MAGNESIUM SULFATE 1 GRAM/100 mL PREMIX 1 GM/100 ML BAG IV PRN (05:36)
[2018-06-12] MEDS ORDERED: K-LYTE EFFERVESCENT PO PRN (05:36)
[2018-06-12] MEDS ORDERED: POTASSIUM CHL 60 MEQ/NS 0.45% 500 ML IV PRN (05:36)
[2018-06-12] MEDS: LANOXIN INJ IVP SCH (09:26)
[2018-06-12] MEDS: NYSTATIN SUSP MT SCH (09:27)
[2018-06-12] MEDS: ROCEPHIN VIAL 1 GRAM 1 G in NS 100 ML IV + SPIKE MINIBAG* 100 ML IV SCH (09:27)
[2018-06-12 12:15] VITALS: BP 121/77
--- NOTE | 2018-07-20 23:17 | DR.CARTERD ---
- Discharge Summary for: Discharge Summary for Date of:: 06/12/18 - Admission Date Date of Admission: 06/06/18 - Admission Diagnoses Admission Diagnosis: (1) Altered mental state (2) Sepsis (3) UTI (urinary tract infection) (4) Hx of malignant neoplasm of prostate (5) CAD (coronary artery disease) (6) Dementia (7) History of atrial fibrillation - Discharge Date Discharge Date: 06/12/18 - Discharge Diagnoses Discharge Diagnosis: (1) Altered mental state (2) Proteus Mirabilis UTI (urinary tract infection) (3) Hx of malignant neoplasm of prostate (4) CAD (coronary artery disease) (5) Dementia (6) History of atrial fibrillation - Hospital Course Hospital Course: Day one, Mr. Maki presented to the emergency room from the [facility] with reports of altered mental status. residential staff reported patient had blood in urine as well. Patient had a long-term indwelling gray catheter. Labs obtained on arrival to the hospital revealed an elevated white blood cell count of 21.5, potassium of 5.3 and BUN of 71. Patient noted with a baseline BUN of around 16 and no history of renal failure or insufficiency. Patient given a 1- liter bolus of normal saline and started on NS @125ml/hr. Patient admitted to the hospital and rehydrated. Medical History: Dementia, CAD, Cardia Arrhythmia, Hypertension, A-Fib, BPH, Muscle Weakness, Prostate CA, Anxiety, Depression. Medications: NS 1liter bolus x1, Proventil neb x1, NS @125ml/hr, Milk of Mag 30ml po TID PRN, Lanoxin 0.25mg po daily, Megace 40mg po BID, Hiprex 1gm po BID, Lopressor 12.5mg po BID, Multi-Tab po daily. Abnormal Labs: (06/05/18) WBC 21.5, Sodium 146, Potassium 5.3, Chloride 111, Carbon Dioxide 19.9, BUN 71, Glucose 150, CRP 35.10, Total Protein 8.5, Globulin 5.1, A/G Ratio 0.7. Brain CT: Advanced cerebral atrophy, similar to the prior. No acute intracranial hemorrhage. EKG: A-Fib/Flutter and V-paced Complexes. [id number]. We continued to monitor. Day two, patient was a little more alert. He recognized his at bedside. WBC improved. Treatment was continued. Day three, hydration was continued. Labs were improving. Patient became more alert with each day. Day four, Urine culture revels Proteus Mirabilis. Patient had a stasis ulcer 2.5 X 2.5 X 0.5. Patient continued receiving Rocephin 1gm IV daily with gentle hydration IVF. Day five and six, patient continued to improve with altered mental status and labs as well. Treatment was continued. On day seven, patient was doing well. He had history of dementia and was alert and oriented to name. Labs had greatly improved. Vital signs stable. We planned for discharge to [facility]. Instructions for medications and follow up were discussed w ith patient and family, both voiced understanding. Patient discharged to [facility] in stable condition with staff. Labs: Microbiology 06/06/18 08:51 Urine,Clean Catch Urine Culture - Final Proteus Mirabilis - Discharge Medications Discharge Medications: Home Medication List Lactobac 40-Bifido 3-S.thermop [Probiotic] 1 tab PO DAILY 06/06/18 [History] ascorbic acid (vitamin C) [Vitamin C] 1 tab PO BID 06/06/18 [History] aspirin 81 mg PO QDAY 06/06/18 [History] digoxin [Lanoxin] 0.25 mg PO QDAY 06/06/18 [History] megestrol 40 mg PO BID 06/06/18 [History] tramadol [Ultram] 50 mg PO BID 06/06/18 [History] zinc sulfate [Zinc-220] 1 tab PO DAILY 06/06/18 [History] ceftriaxone 1 g IV DAILY #6 ea 06/12/18 [Rx] nystatin 5 ml PO QID #240 ml 06/12/18 [Rx] Prescriptions: ceftriaxone Shayne Reyes nystatin Shayne Reyes - Discharge Disposition Discharge Disposition: We will follow up with patient in one week at [facility].
== END 2018-06-12 12:10 | DRG 689 ==
LOC: ER 22:51 → ICU 06-06 02:47 → MED/SURG 06-08 16:17
PROVIDERS: ADMIT Internal Medicine; ATTEND Internal Medicine
DX: R79.89 Other specified abnormal findings of blood chemistry; R41.82 Altered mental status, unspecified; Z85.46 Personal history of malignant neoplasm of prostate; I25.10 Atherosclerotic heart disease of native coronary artery without angina pectoris; I48.2 Chronic atrial fibrillation; L89.213 Pressure ulcer of right hip, stage 3; Z87.440 Personal history of urinary (tract) infections; E86.0 Dehydration; B96.4 Proteus (mirabilis) (morganii) as the cause of diseases classified elsewhere; E87.6 Hypokalemia; R31.9 Hematuria, unspecified; N39.0 Urinary tract infection, site not specified; F03.90 Unspecified dementia, unspecified severity, without behavioral disturbance, psychotic disturbance, mood disturbance, and anxiety
CPT/HCPCS: 36415; 70450; 71010; 71045; 80053; 80162; 81001; 82550; 82553; 83735; 84484; 85025; 86140; 87040; 87086; 87088; 87186; 93005; 94640; 96365; 96367; 97110; 97167; 99284; 99285; A4222; S0179; J0696; J1160; J1650; J1940; J2543; J3480; J3490; J7030; J7050; J7613